=== PATIENT | female | born 1995 | race Caucasian/White ===

== ENCOUNTER 2018-10-21 09:53 | Emergency (ER) | payer OTHER, SELFPAY ==
[2018-10-21 10:04] VITALS: BP 111/76; PULSE 88; RESP 16; TEMP 36.7; O2SAT 98; BMI 25.6
--- NOTE | 2018-10-21 11:27 | PC.NURSE ---
Hx of tonsillar abscesses. Not able to eat or drink since last night. Symptoms have been only in tonsils, sinuses, and ears.
--- NOTE | 2018-10-21 12:07 | ED.URI ---
HPI - URI/Sore Throat <Kianna Peter PA-C - Last Filed: 10/21/18 18:43> General Chief Complaint: Upper Respiratory Symptoms Stated Complaint: sore throat for a week Time Seen by Provider: 10/21/18 10:26 Source: patient Mode of arrival: ambulatory Limitations: no limitations History of Present Illness HPI Narrative: This 23-year-old female comes to ED requesting test for strep throat. She states she has had stuffy nose, sinus congestion, achy years for about a week along with some cough producing thick sputum. She states that she has a history of tonsillar abscesses in the past and her sore throat felt worse this morning, so thought she better have this checked as she was concerned about exposing her daughter and other young relatives. She states her sister developed sore throat today as well and they and their kids have been in contact. She denies any fever at home. She states that she has not had any dyspnea or wheeze but does have a history of mild asthma in the past. She does not have an inhaler here. She denies any recent foreign travel, denies any fever at home or any other new complaints aside from ongoing dryness and flaking in her ears. She denies any possibility of , States Mirena implant is in place and her is deployed. She is not breast-feeding Related Data Previous Rx's Medication Instructions Recorded albuterol sulfate 2 inhalation INHALATION Q4-6H PRN 10/21/18 #8.5 gram lidocaine HCl [Lidocaine Viscous] 15 ml PO Q4-6H PRN #150 ml 10/21/18 Allergies Allergy/AdvReac Type Severity Reaction Status Date / Time amoxicillin Allergy Verified 10/21/18 10:04 aspirin Allergy Verified 10/21/18 10:04 diphenhydramine Allergy Verified 10/21/18 10:04 [From Benadryl] Penicillins Allergy Verified 10/21/18 10:04 Review of Systems <Kianna Peter PA-C - Last Filed: 10/21/18 18:43> Review of Systems ROS Unobtainable: All systems reviewed & are unremarkable except as noted in HPI and below PFSH <DUC Cox Last Filed: 10/21/18 18:43> Medical History Mild asthma (Chronic) No pertinent family history (Chronic) Surgical History No pertinent past surgical history (Chronic) Social History Smoking Status: Current some day smoker Social History Smoking Status: Current some day smoker Exam <DUC Cox Last Filed: 10/21/18 18:43> Narrative Exam Narrative: GENERAL APPEARANCE: Patient sitting comfortably, in no distress. HEAD: Mild generalized sinus TTP. EYES: PERRL, EOMI. EARS: There is mild dryness and slight flaking in the ear canals, TMS intact with dull light reflexes bilaterally ORAL CAVITY: Normal oropharynx. THROAT: Erythematous with mild tonsillar enlargement, no exudate NECK/THYROID: Neck supple, full range of motion, shotty anterior cervical lymphadenopathy. LUNGS: Clear to auscultation bilaterally, no cough on exam. HEART: RRR without murmur, nl S1, S2, no S3 or S4. Initial Vital Signs Initial Vital Signs: Vital Signs Temperature 98.1 F 10/21/18 10:04 Pulse Rate 88 10/21/18 10:04 Respiratory Rate 16 10/21/18 10:04 Blood Pressure 111/76 10/21/18 10:04 Pulse Oximetry 98 10/21/18 10:04 <DO Victoria Dubon Last Filed: 10/21/18 19:43> Initial Vital Signs Initial Vital Signs: Vital Signs Temperature 98.1 F 10/21/18 10:04 Pulse Rate 88 10/21/18 10:04 Respiratory Rate 16 10/21/18 10:04 Blood Pressure 111/76 10/21/18 10:04 Pulse Oximetry 98 10/21/18 10:04 Course <DUC Cox Last Filed: 10/21/18 18:43> Vital Signs - 8 hr 10/21/18 12:25 Pulse Rate 77 Respiratory Rate 12 Blood Pressure [Left Arm] 107/70 Pulse Oximetry 98 <DO Victoria Dubon Last Filed: 10/21/18 19:43> Vital Signs - 8 hr 10/21/18 12:25 Pulse Rate 77 Respiratory Rate 12 Blood Pressure [Left Arm] 107/70 Pulse Oximetry 98 MDM - URI/Sore Throat <DUC Cox Last Filed: 10/21/18 18:43> Lab Data Attestation: I reviewed the patient's lab results. Point of Care Testing Rapid Strep A Negative <Gene Carrillo DO - Last Filed: 10/21/18 19:43> Lab Data Point of Care Testing Rapid Strep A Negative Discharge Plan Departure Patient Disposition: Home Clinical Impression: Sinusitis Qualifiers: Sinusitis location: pansinusitis Chronicity: subacute Qualified Code(s): J01.40 - Acute pansinusitis, unspecified Pharyngitis Qualifiers: Pharyngitis/tonsillitis etiology: unspecified etiology Qualified Code(s): J02.9 - Acute pharyngitis, unspecified Discharge Date/Time: 10/21/18 12:31 Interventions: ED Discharge Assessment Last Done: 10/21/18 12:30 Instructions: DI for Sinusitis Activity Restrictions/Additional Instructions: I think your current symptoms are related to a sinus infection or head cold. The vast majority of the time, the symptoms are caused by viruses and usually get better on their own. I think that the drainage from your sinuses is causing your cough and this virus is probably causing your sore throat as well. Your test for strep throat was negative today. You should return as we talked about if you have any acutely worsening symptoms, or see your PCP right away. You should also see your PCP if you are not feeling better in the next week. I have sent in a prescription for viscous lidocaine for you to help numb your throat so you can eat and swallow more easily, and have [facility] [place] You may wish to try an antihistamine such as Zyrtec (cetirizine) 10 mg [id number], along with pseudoephedrine to help with your sinus drainage and congestion. An [id number] expectorant such as Mucinex may also help with your chest congestion. Prescriptions: New lidocaine HCl [Lidocaine Viscous] 2 % solution 15 ml PO Q4-6H PRN (Reason: ST) Qty: 150 RF: 0 albuterol sulfate 90 mcg/actuation HFA aerosol inhaler 2 inhalation INHALATION Q4-6H PRN (Reason: cough/asthma) Qty: 8.5 RF: 0 Referrals: Roz Willis MD [Primary Care Provider] - <Gene Carrillo DO - Last Filed: 10/21/18 19:43> Cosign ED Attending Cosignature Attestation: I was immediately available in the department for consultation. Documentation has been reviewed. I agree with assessment and plan.
[2018-10-21 12:25] VITALS: BP 107/70; PULSE 77; RESP 12; O2SAT 98
== END 2018-10-21 12:31 | disposition home or self-care (01) ==
PROVIDERS: Emergency Provider Internal Medicine; PCP Family Medicine
DX: J01.40 Acute pansinusitis, unspecified (principal); J02.9 Acute pharyngitis, unspecified
CPT/HCPCS: 87880; 99282

== ENCOUNTER 2018-10-23 14:25 | Emergency (ER) | payer OTHER, SELFPAY ==
[2018-10-23 14:35] VITALS: BP 114/79; PULSE 96; RESP 15; TEMP 36.9; O2SAT 99; BMI 25.6
[2018-10-23 15:00] LABS: Add Manual Diff / Slide Review NO; Basophils Absolute Auto 100 /uL (0-100); Basophils Percent Auto 0.6 % (0-2); Eosinophils Absolute Auto 300 /uL (0-450); Eosinophils Percent Auto 3.6 % (2-4); Hematocrit 46.6 % (36-46); Hemoglobin 15.6 g/dL (12.0-16.0); Lymphocytes Absolute Auto 1200 /uL (1100-4500); Lymphocytes Percent Auto 13.3 % (25-40); Mean Corpuscular HGB Conc 33.5 % (30-36); Mean Corpuscular Hemoglobin 29.2 PG (26-34); Mean Corpuscular Volume 87.1 fL (80-100); Monocytes Absolute Auto 700 /uL (0-900); Monocytes Percent Auto 7.1 % (3-14); Neutrophils Absolute Auto 7000 /uL (1500-7000); Neutrophils Percent Auto 75.4 % (50-75); Platelet Count 241 X10^3/uL (150-400); Red Blood Cell Count 5.35 X10^6/uL (4.0-5.2); Red Cell Distribution Width 13.8 % (11.6-14.8); White Blood Cell Count 9.3 X10^3/uL (4.5-11.0)
[2018-10-23 15:15] LABS: PTT Partial Thromboplastin Tim 32 SECONDS (26.4-36.2)
[2018-10-23 15:31] LABS: Alanine Aminotransferase 40 IU/L (9-52); Albumin 4.8 g/dL (3.5-5.0); Albumin Globulin Ratio 1.5 (1.0-2.8); Alkaline Phosphatase 56 U/L (38-126); Aspartate Aminotransferase 23 IU/L (14-36); BUN Creatinine Ratio 15.7 (6-22); Bilirubin Total 0.9 mg/dL (0.2-1.3); Blood Urea Nitrogen 11 mg/dL (7-17); Calcium 9.3 mg/dL (8.4-10.2); Carbon Dioxide 27 mmol/L (22-32); Chloride 102 mmol/L (98-107); Estimated Glomerular Filt Rate > 60.0 mL/min (>60); Globulin 3.2 g/dL (1.7-4.1); Glucose 85 mg/dL (70-100); HEMOLYSIS < 15 (0-50); Lipase 153 U/L (23-300); Potassium 4.2 mmol/L (3.4-5.1); Sodium 140 mmol/L (137-145)
--- NOTE | 2018-10-23 15:31 | ED.ABDPAIN ---
HPI - Abdominal Pain <RAFIA Gonzalez - Last Filed: 10/23/18 22:38> General Chief Complaint: Abdominal Pain Stated Complaint: stomach pain Time Seen by Provider: 10/23/18 14:44 Source: patient Mode of arrival: ambulatory Limitations: no limitations History of Present Illness HPI narrative: 23-year-old healthy female that is a nonsmoker here for complaint of a pain into her abdomen mostly in the right upper quadrant that started earlier today. She still has had some nausea. No vomiting.She does state that she has had some dark stools since this morning. She does report that she has been taking a lot of ibuprofen lately for muscle skeletal aches. She denies any trauma to the abdomen. No fevers no chills. No urinary symptoms. Last bowel movement was earlier today and she reports was dark. She denies any vomiting. She is tolerating p.o. intake. She denies any flank pain. She denies a history of having any ulcers MD complaint: abdominal pain Related Data Previous Rx's Medication Instructions Recorded albuterol sulfate 2 inhalation INHALATION Q4-6H PRN 10/21/18 #8.5 gram lidocaine HCl [Lidocaine Viscous] 15 ml PO Q4-6H PRN #150 ml 10/21/18 esomeprazole magnesium 40 mg PO DAILY #14 cap 10/23/18 Allergies Allergy/AdvReac Type Severity Reaction Status Date / Time amoxicillin Allergy Verified 10/23/18 14:35 aspirin Allergy Verified 10/23/18 14:35 diphenhydramine Allergy Verified 10/23/18 14:35 [From Benadryl] Penicillins Allergy Verified 10/23/18 14:35 Review of Systems <RAFIA Gonzalez - Last Filed: 10/23/18 22:38> Constitutional Denies chills, Denies fever(s), Denies lethargy and Denies weakness Eyes Denies change in vision, Denies eye discharge, Denies irritation and Denies loss of vision ENT Ears, Nose, Mouth, and Throat: Denies change in voice, Denies neck pain and Denies sore throat Cardiovascular Denies chest pain, Denies irregular heart rhythm, Denies lightheadedness, Denies palpitations, Denies dyspnea, Denies dyspnea on exertion and Denies orthopnea Respiratory Denies cough, Denies dyspnea, Denies dyspnea on exertion and Denies wheezing Gastrointestinal Comments: Abdominal pain mostly right upper quadrant with dark stool Genitourinary Denies hematuria, Denies flank pain, Denies urinary incontinence and Denies urinary urgency Musculoskeletal Denies neck pain Integumentary/Breasts Denies pruritus, Denies erythema, Denies rash and Denies wounds Neurologic Denies confusion, Denies loss of vision and Denies weakness Psychiatric Denies anxiety, Denies confusion, Denies depression, Denies homicidal ideation and Denies suicidal ideation Endocrine Denies palpitations Hematologic/Lymphatic Denies easy bruising Allergic/Immunologic Denies wheezing PFSH <RAFIA Gonzalez - Last Filed: 10/23/18 22:38> Medical History Mild asthma (Chronic) No pertinent family history (Chronic) Surgical History No pertinent past surgical history (Chronic) Social History Smoking Status: Current some day smoker Social History Smoking Status: Current some day smoker Exam <RAFIA Gonzalez - Last Filed: 10/23/18 22:38> Initial Vital Signs Initial Vital Signs: Vital Signs Temperature 98.4 F 10/23/18 14:35 Pulse Rate 96 H 10/23/18 14:35 Respiratory Rate 15 10/23/18 14:35 Blood Pressure 114/79 10/23/18 14:35 Pulse Oximetry 99 10/23/18 14:35 Const General: cooperative and well developed Nutritional Appearance: well nourished Orientation: alert, awake, oriented x3 and not confused [facility] Mouth: oral mucosae normal and moist mucous membranes Eyes Conjunctivae: conjunctivae normal Sclera: sclerae normal Pupils: PERRL EOM: EOM intact bilaterally Resp Effort & Inspection: normal respiratory effort, able to speak in complete sentences, no respiratory distress and no use of accessory muscles Auscultation: clear to auscultation bilaterally, no rales, no rhonchi and no wheezes Cardio Rate: regular rate Rhythm: regular rhythm Heart Sounds: no click, no gallops, no murmurs and no rubs Pulses: normal peripheral pulses GI Rectal Exam: visual inspection normal, normal sphincter tone, No fissure, heme positive stool and No hemorrhoids Other: Tenderness on palpation to all 4 quadrants. General: No CVA tenderness Skin General: no rashes or lesions noted, No jaundice and No petechiae Neuro General: alert, oriented x3, gait normal and no focal motor deficits Speech: speech normal <Ana Quick DO - Last Filed: 10/24/18 07:54> Initial Vital Signs Initial Vital Signs: Vital Signs Temperature 98.4 F 10/23/18 14:35 Pulse Rate 96 H 10/23/18 14:35 Respiratory Rate 15 10/23/18 14:35 Blood Pressure 114/79 10/23/18 14:35 Pulse Oximetry 99 10/23/18 14:35 Course <RAFIA Gonzalez - Last Filed: 10/23/18 22:38> Orders Ordered: Discontinued Medications Hydromorphone HCl (Dilaudid) 0.5 mg IV NOW ONE Stop: 10/23/18 15:39 Last Admin: 10/23/18 16:02 Dose: 0.5 mg Hydromorphone HCl (Dilaudid) 0.5 mg IV NOW ONE Stop: 10/23/18 17:48 Last Admin: 10/23/18 18:03 Dose: 0.5 mg Sodium Chloride (Normal Saline 0.9%) 1,000 mls @ 150 mls/hr IV CONT MARK Last Infusion: 10/23/18 18:43 Dose: 0 mls/hr Admin: 10/23/18 16:02 Dose: 150 mls/hr Ondansetron HCl (Zofran) 4 mg IV NOW ONE Stop: 10/23/18 15:39 Last Admin: 10/23/18 16:02 Dose: 4 mg Ondansetron HCl (Zofran) 4 mg IV NOW ONE Stop: 10/23/18 18:05 Last Admin: 10/23/18 18:07 Dose: 4 mg Vital Signs - 8 hr 10/23/18 17:46 10/23/18 18:49 10/23/18 19:39 Temperature 98.1 F Pulse Rate 84 85 104 H Respiratory Rate 14 27 H 14 Blood Pressure 108/62 Blood Pressure [Right Arm] 106/61 111/63 Pulse Oximetry 97 97 97 <Ana Quick DO - Last Filed: 10/24/18 07:54> Orders Ordered: Discontinued Medications Hydromorphone HCl (Dilaudid) 0.5 mg IV NOW ONE Stop: 10/23/18 15:39 Last Admin: 10/23/18 16:02 Dose: 0.5 mg Hydromorphone HCl (Dilaudid) 0.5 mg IV NOW ONE Stop: 10/23/18 17:48 Last Admin: 10/23/18 18:03 Dose: 0.5 mg Sodium Chloride (Normal Saline 0.9%) 1,000 mls @ 150 mls/hr IV CONT MARK Last Infusion: 10/23/18 18:43 Dose: 0 mls/hr Admin: 10/23/18 16:02 Dose: 150 mls/hr Ondansetron HCl (Zofran) 4 mg IV NOW ONE Stop: 10/23/18 15:39 Last Admin: 10/23/18 16:02 Dose: 4 mg Ondansetron HCl (Zofran) 4 mg IV NOW ONE Stop: 10/23/18 18:05 Last Admin: 10/23/18 18:07 Dose: 4 mg Vital Signs - 8 hr 10/23/18 17:46 10/23/18 18:49 10/23/18 19:39 Temperature 98.1 F Pulse Rate 84 85 104 H Respiratory Rate 14 27 H 14 Blood Pressure 108/62 Blood Pressure [Right Arm] 106/61 111/63 Pulse Oximetry 97 97 97 MDM - Abdominal Pain <RAFIA Gonzalez - Last Filed: 10/23/18 22:38> Lab Data Result diagrams: 10/23/18 14:52 10/23/18 14:52 Lab Results 10/23/18 10/23/18 10/23/18 Range/Units 14:52 14:52 14:52 WBC 9.3 (4.5-11.0) X10^3/uL RBC 5.35 H (4.0-5.2) X10^6/uL Hgb 15.6 (12.0-16.0) g/dL Hct 46.6 H (36-46) % MCV 87.1 (80-100) fL MCH 29.2 (26-34) PG MCHC 33.5 (30-36) % RDW 13.8 (11.6-14.8) % Plt Count 241 (150-400) X10^3/uL Neut % (Auto) 75.4 H (50-75) % Lymph % (Auto) 13.3 L (25-40) % [place] % (Auto) 7.1 (3-14) % Eos % (Auto) 3.6 (2-4) % Baso % (Auto) 0.6 (0-2) % Neut # (Auto) 7000 (7580-3835) /uL Lymph # (Auto) 1200 (6769-7897) /uL [place] # (Auto) 700 (0-900) /uL Eos # (Auto) 300 (0-450) /uL Baso # (Auto) 100 (0-100) /uL PT 12.0 (10.1-12.7) SECONDS INR 1.0 (0.9-1.3) APTT 32 (26.4-36.2) SECONDS Sodium 140 (137-145) mmol/L Potassium 4.2 (3.4-5.1) mmol/L Chloride 102 (98-107) mmol/L Carbon Dioxide 27 (22-32) mmol/L BUN 11 (7-17) mg/dL Creatinine 0.70 (0.52-1.04) mg/dL Estimated GFR > 60.0 (>60) mL/min BUN/Creatinine Ratio 15.7 (6-22) Glucose 85 (70-100) mg/dL Calcium 9.3 (8.4-10.2) mg/dL Total Bilirubin 0.9 (0.2-1.3) mg/dL AST 23 (14-36) IU/L ALT 40 (9-52) IU/L Alkaline Phosphatase 56 (38-126) U/L Total Protein 8.0 (6.3-8.2) g/dL Albumin 4.8 (3.5-5.0) g/dL Globulin 3.2 (1.7-4.1) g/dL Albumin/Globulin Ratio 1.5 (1.0-2.8) Lipase 153 (23-300) U/L Point of care testing: Point of Care Testing Test Results Negative Stool Occult Blood Positive Urine Dip Bedside Urine Glucose Negative Bedside Urine Bilirubin - Negative Bedside Urine Ketone - Negative Urine Specific [place] 1.025 Bedside Urine Occult Blood - Negative Bedside Urine pH 6.0 Bedside Urine Protein - Negative Bedside Urine Urobilinogen - Negative Bedside Urine Nitrite - Negative Bedside Urine Leukocytes - Negative Esterase Imaging Data CT scan - abdomen: Radiologist's impression: [address] [address] [address] Scan Report Signed Patient: Sarah AndrewMR#: [id number] : 1995Acct:[id number] Age/Sex: 23 / FDate of Service: 10/23/18 Loc: ED Accession Number: [id number] Procedure: CT abdomen pelvis w con Ordering Provider: Lauri Kerr PROCEDURE: CT ABDOMEN PELVIS W CON INDICATIONS: Abdominal pain to right upper quadrant and right lower quadr TECHNIQUE: After the administration of intravenous contrast, 5 mm thick sections acquired from the diaphragm to the symphysis. 5 mm coronal and sagittal reformats were acquired. For radiation dose reduction, the following was used: automated exposure control, adjustment of mA and/or kV according to patient size. COMPARISON: None. FINDINGS: Image quality: Excellent. ABDOMEN: Lung bases: Lung bases are clear. Heart size is normal. Solid organs: Liver is normal in size and enhancement. Focal fatty infiltration noted in the liver adjacent to the falciform ligament. Gallbladder is within normal limits. Biliary system is non dilated. Pancreas enhances normally. Spleen is normal in size and enhancement. No adrenal nodules. Kidneys demonstrate normal size and enhancement, without hydronephrosis. Peritoneum and bowel: Bowel loops demonstrate normal wall thickness and caliber. No free fluid or air. The appendix is normal. Nodes and vessels: No retroperitoneal or mesenteric adenopathy by size criteria. Aorta and inferior vena cava are normal in size. Miscellaneous: No ventral hernias. PELVIS: Genitourinary: Bladder wall thickness is normal. Intrauterine device is properly positioned within the uterus. Miscellaneous: No inguinal hernias or adenopathy. Bones: No suspicious bony lesions. No vertebral body compression fractures. IMPRESSION: 1. The appendix is normal. 2. No CT evidence of cholecystitis. If there is clinical concern for cholecystitis, abdominal ultrasound should be performed for further evaluation. 3. No dilated loops of bowel. 4. No free fluid or air. Dictated by: Yas Lewis MD, PhD on 10/23/2018 at 16:16 Approved by: Yas Lewis MD, PhD on 10/23/2018 at 16:21 US - abdomen: Radiologist's impression: [address] [address] Ultrasound Report Signed Patient: Sarah Andrew#: [id number] : 1995Acct:[id number] Age/Sex: 23 / FDate of Service: 10/23/18 Loc: ED Accession Number: [id number] Procedure: US abdomen complete Ordering Provider: Lauri Kerr PROCEDURE: US ABDOMEN COMPLETE INDICATIONS: PAIN TO RIGHT UPPER QUADRANT TECHNIQUE: Real-time scanning was performed of the abdominal and retroperitoneal organs, with image documentation. COMPARISON: None. FINDINGS: Liver: Liver is normal in size and homogeneous in echotexture. Gallbladder: Gallbladder is unremarkable without sonographic evidence for acute inflammation. Biliary ducts: Intrahepatic bile ducts are non-dilated. Extrahepatic bile duct caliber measures 4 mm. Normal is 6-7 mm or less in diameter, or 10 mm or less post-cholecystectomy. Pancreas: Visualized portions of the pancreas are sonographically normal. Spleen: Spleen is normal in size and homogeneous in echotexture. Kidneys: Kidneys are normal in size and echotexture. Right kidney measures 11.5 cm long; left kidney measures 12.6 cm long. No hydronephrosis or nephrolithiasis. No solid masses. Aorta: Visualized aorta is normal in caliber at less than 3 cm. Iliacs: Proximal common iliac arteries are normal in caliber at less than 2.5 cm. IVC: Intrahepatic inferior vena cava is patent. Miscellaneous: No free abdominal fluid. IMPRESSION: Abdomen without acute sonographic abnormalities. Dictated by: Mekhi Teixeira M.D. on 10/23/2018 at 18:10 Approved by: Mekhi Teixeira M.D. on 10/23/2018 at 18:11 [facility] Narrative Medical decision making narrative: CBC was obtained and was unremarkable. Chem panel was obtained and was unremarkable. coags were normal. CT scan of the abdomen was obtained was unremarkable. Ultrasound was obtained and was negative for acute cholecystitis or other acute problems. Guaiac was obtained and was positive. Will have her follow up with primary care provider for further evaluation such as endoscopy she is placed on. Esomeprazole for the next 2 weeks to help with symptoms. She is instructed not to use ibuprofen as she has been using ibuprofen frequently she states. For any worsening symptoms return to the emergency room. <Ana Quick DO - Last Filed: 10/24/18 07:54> Lab Data Lab Results 10/23/18 10/23/18 10/23/18 Range/Units 14:52 14:52 14:52 WBC 9.3 (4.5-11.0) X10^3/uL RBC 5.35 H (4.0-5.2) X10^6/uL Hgb 15.6 (12.0-16.0) g/dL Hct 46.6 H (36-46) % MCV 87.1 (80-100) fL MCH 29.2 (26-34) PG MCHC 33.5 (30-36) % RDW 13.8 (11.6-14.8) % Plt Count 241 (150-400) X10^3/uL Neut % (Auto) 75.4 H (50-75) % Lymph % (Auto) 13.3 L (25-40) % [place] % (Auto) 7.1 (3-14) % Eos % (Auto) 3.6 (2-4) % Baso % (Auto) 0.6 (0-2) % Neut # (Auto) 7000 (4885-5559) /uL Lymph # (Auto) 1200 (0475-4377) /uL [place] # (Auto) 700 (0-900) /uL Eos # (Auto) 300 (0-450) /uL Baso # (Auto) 100 (0-100) /uL PT 12.0 (10.1-12.7) SECONDS INR 1.0 (0.9-1.3) APTT 32 (26.4-36.2) SECONDS Sodium 140 (137-145) mmol/L Potassium 4.2 (3.4-5.1) mmol/L Chloride 102 (98-107) mmol/L Carbon Dioxide 27 (22-32) mmol/L BUN 11 (7-17) mg/dL Creatinine 0.70 (0.52-1.04) mg/dL Estimated GFR > 60.0 (>60) mL/min BUN/Creatinine Ratio 15.7 (6-22) Glucose 85 (70-100) mg/dL Calcium 9.3 (8.4-10.2) mg/dL Total Bilirubin 0.9 (0.2-1.3) mg/dL AST 23 (14-36) IU/L ALT 40 (9-52) IU/L Alkaline Phosphatase 56 (38-126) U/L Total Protein 8.0 (6.3-8.2) g/dL Albumin 4.8 (3.5-5.0) g/dL Globulin 3.2 (1.7-4.1) g/dL Albumin/Globulin Ratio 1.5 (1.0-2.8) Lipase 153 (23-300) U/L Point of care testing: Point of Care Testing Test Results Negative Stool Occult Blood Positive Urine Dip Bedside Urine Glucose Negative Bedside Urine Bilirubin - Negative Bedside Urine Ketone - Negative Urine Specific [place] 1.025 Bedside Urine Occult Blood - Negative Bedside Urine pH 6.0 Bedside Urine Protein - Negative Bedside Urine Urobilinogen - Negative Bedside Urine Nitrite - Negative Bedside Urine Leukocytes - Negative Esterase Discharge Plan Departure Patient Disposition: Home Clinical Impression: Abdominal pain Qualifiers: Abdominal location: generalized Qualified Code(s): R10.84 - Generalized abdominal pain Discharge Date/Time: 10/23/18 19:38 Interventions: ED Discharge Assessment Last Done: 10/23/18 19:39 Activity Restrictions/Additional Instructions: Imaging today was unremarkable. No acute findings are seen. Laboratory results were unremarkable. Stool presents as having blood in the stool. Recommend following up with primary care provider for further evaluation and discussion of referral for endoscopy. Use Tylenol instead of ibuprofen for any discomfort. Urine prescribed esomeprazole in an acid to help protect the stomach lining. For any worsening symptoms return to the emergency room. Urinalysis was negative for urinary tract infection and also . Prescriptions: New esomeprazole magnesium 40 mg capsule,delayed release(DR/EC) 40 mg PO DAILY Qty: 14 RF: 0 No Action lidocaine HCl [Lidocaine Viscous] 2 % solution 15 ml PO Q4-6H PRN (Reason: ST) Qty: 150 RF: 0 albuterol sulfate 90 mcg/actuation HFA aerosol inhaler 2 inhalation INHALATION Q4-6H PRN (Reason: cough/asthma) Qty: 8.5 RF: 0 Referrals: Roz Willis MD [Primary Care Provider] - <Ana Quick DO - Last Filed: 10/24/18 07:54> Cosign ED Attending Eveliaature Attestation: I was immediately available in the department for consultation. Documentation has been reviewed. I agree with assessment and plan.
--- NOTE | 2018-10-23 15:39 | DI.CT.S_ITS ---
PROCEDURE: CT ABDOMEN PELVIS W CON INDICATIONS: Abdominal pain to right upper quadrant and right lower quadr TECHNIQUE: After the administration of intravenous contrast, 5 mm thick sections acquired from the diaphragm to the symphysis. 5 mm coronal and sagittal reformats were acquired. For radiation dose reduction, the following was used: automated exposure control, adjustment of mA and/or kV according to patient size. COMPARISON: None. FINDINGS: Image quality: Excellent. ABDOMEN: Lung bases: Lung bases are clear. Heart size is normal. Solid organs: Liver is normal in size and enhancement. Focal fatty infiltration noted in the liver adjacent to the falciform ligament. Gallbladder is within normal limits. Biliary system is non dilated. Pancreas enhances normally. Spleen is normal in size and enhancement. No adrenal nodules. Kidneys demonstrate normal size and enhancement, without hydronephrosis. Peritoneum and bowel: Bowel loops demonstrate normal wall thickness and caliber. No free fluid or air. The appendix is normal. Nodes and vessels: No retroperitoneal or mesenteric adenopathy by size criteria. Aorta and inferior vena cava are normal in size. Miscellaneous: No ventral hernias. PELVIS: Genitourinary: Bladder wall thickness is normal. Intrauterine device is properly positioned within the uterus. Miscellaneous: No inguinal hernias or adenopathy. Bones: No suspicious bony lesions. No vertebral body compression fractures. IMPRESSION: 1. The appendix is normal. 2. No CT evidence of cholecystitis. If there is clinical concern for cholecystitis, abdominal ultrasound should be performed for further evaluation. 3. No dilated loops of bowel. 4. No free fluid or air. Dictated by: Yas Lewis MD, PhD on 10/23/2018 at 16:16 Approved by: Yas Lewis MD, PhD on 10/23/2018 at 16:21
[2018-10-23] MEDS: SODIUM CHLORIDE 0.9% 1,000 ML 150 ML IV (16:02)
[2018-10-23] MEDS: ONDANSETRON 4 MG/2 ML INJ IV ×2 (16:02→18:07)
[2018-10-23] MEDS: HYDROMORPHONE 1 MG INJ 0.5 MG IV ×2 (16:02→18:03)
--- NOTE | 2018-10-23 16:42 | DI.US.S_ITS ---
PROCEDURE: US ABDOMEN COMPLETE INDICATIONS: PAIN TO RIGHT UPPER QUADRANT TECHNIQUE: Real-time scanning was performed of the abdominal and retroperitoneal organs, with image documentation. COMPARISON: None. FINDINGS: Liver: Liver is normal in size and homogeneous in echotexture. Gallbladder: Gallbladder is unremarkable without sonographic evidence for acute inflammation. Biliary ducts: Intrahepatic bile ducts are non-dilated. Extrahepatic bile duct caliber measures 4 mm. Normal is 6-7 mm or less in diameter, or 10 mm or less post-cholecystectomy. Pancreas: Visualized portions of the pancreas are sonographically normal. Spleen: Spleen is normal in size and homogeneous in echotexture. Kidneys: Kidneys are normal in size and echotexture. Right kidney measures 11.5 cm long; left kidney measures 12.6 cm long. No hydronephrosis or nephrolithiasis. No solid masses. Aorta: Visualized aorta is normal in caliber at less than 3 cm. Iliacs: Proximal common iliac arteries are normal in caliber at less than 2.5 cm. IVC: Intrahepatic inferior vena cava is patent. Miscellaneous: No free abdominal fluid. IMPRESSION: Abdomen without acute sonographic abnormalities. Dictated by: Mekhi Teixeira M.D. on 10/23/2018 at 18:10 Approved by: Mekhi Teixeira M.D. on 10/23/2018 at 18:11
--- NOTE | 2018-10-23 16:45 | ED_ITS ---
HPI - Abdominal Pain <RAFIA Gonzalez - Last Filed: 10/23/18 22:38> General Chief Complaint: Abdominal Pain Stated Complaint: stomach pain Time Seen by Provider: 10/23/18 14:44 Source: patient Mode of arrival: ambulatory Limitations: no limitations History of Present Illness HPI narrative: 23-year-old healthy female that is a nonsmoker here for complaint of a pain into her abdomen mostly in the right upper quadrant that started earlier today. She still has had some nausea. No vomiting.She does state that she has had some dark stools since this morning. She does report that she has been taking a lot of ibuprofen lately for muscle skeletal aches. She denies any trauma to the abdomen. No fevers no chills. No urinary symptoms. Last bowel movement was earlier today and she reports was dark. She denies any vomiting. She is tolerating p.o. intake. She denies any flank pain. She denies a history of having any ulcers MD complaint: abdominal pain Related Data Previous Rx's Medication Instructions Recorded albuterol sulfate 2 inhalation INHALATION Q4-6H PRN 10/21/18 #8.5 gram lidocaine HCl [Lidocaine Viscous] 15 ml PO Q4-6H PRN #150 ml 10/21/18 esomeprazole magnesium 40 mg PO DAILY #14 cap 10/23/18 Allergies Allergy/AdvReac Type Severity Reaction Status Date / Time amoxicillin Allergy Verified 10/23/18 14:35 aspirin Allergy Verified 10/23/18 14:35 diphenhydramine Allergy Verified 10/23/18 14:35 [From Benadryl] Penicillins Allergy Verified 10/23/18 14:35 Review of Systems <RAFIA Gonzalez - Last Filed: 10/23/18 22:38> Constitutional Denies chills, Denies fever(s), Denies lethargy and Denies weakness Eyes Denies change in vision, Denies eye discharge, Denies irritation and Denies loss of vision ENT Ears, Nose, Mouth, and Throat: Denies change in voice, Denies neck pain and Denies sore throat Cardiovascular Denies chest pain, Denies irregular heart rhythm, Denies lightheadedness, Denies palpitations, Denies dyspnea, Denies dyspnea on exertion and Denies orthopnea Respiratory Denies cough, Denies dyspnea, Denies dyspnea on exertion and Denies wheezing Gastrointestinal Comments: Abdominal pain mostly right upper quadrant with dark stool Genitourinary Denies hematuria, Denies flank pain, Denies urinary incontinence and Denies urinary urgency Musculoskeletal Denies neck pain Integumentary/Breasts Denies pruritus, Denies erythema, Denies rash and Denies wounds Neurologic Denies confusion, Denies loss of vision and Denies weakness Psychiatric Denies anxiety, Denies confusion, Denies depression, Denies homicidal ideation and Denies suicidal ideation Endocrine Denies palpitations Hematologic/Lymphatic Denies easy bruising Allergic/Immunologic Denies wheezing PFSH <RAFIA Gonzalez - Last Filed: 10/23/18 22:38> Medical History Mild asthma (Chronic) No pertinent family history (Chronic) Surgical History No pertinent past surgical history (Chronic) Social History Smoking Status: Current some day smoker Social History Smoking Status: Current some day smoker Exam <RAFIA Gonzalez - Last Filed: 10/23/18 22:38> Initial Vital Signs Initial Vital Signs: Vital Signs Temperature 98.4 F 10/23/18 14:35 Pulse Rate 96 H 10/23/18 14:35 Respiratory Rate 15 10/23/18 14:35 Blood Pressure 114/79 10/23/18 14:35 Pulse Oximetry 99 10/23/18 14:35 Const General: cooperative and well developed Nutritional Appearance: well nourished Orientation: alert, awake, oriented x3 and not confused [facility] Mouth: oral mucosae normal and moist mucous membranes Eyes Conjunctivae: conjunctivae normal Sclera: sclerae normal Pupils: PERRL EOM: EOM intact bilaterally Resp Effort & Inspection: normal respiratory effort, able to speak in complete sentences, no respiratory distress and no use of accessory muscles Auscultation: clear to auscultation bilaterally, no rales, no rhonchi and no wheezes Cardio Rate: regular rate Rhythm: regular rhythm Heart Sounds: no click, no gallops, no murmurs and no rubs Pulses: normal peripheral pulses GI Rectal Exam: visual inspection normal, normal sphincter tone, No fissure, heme positive stool and No hemorrhoids Other: Tenderness on palpation to all 4 quadrants. General: No CVA tenderness Skin General: no rashes or lesions noted, No jaundice and No petechiae Neuro General: alert, oriented x3, gait normal and no focal motor deficits Speech: speech normal <Ana Quick DO - Last Filed: 10/24/18 07:54> Initial Vital Signs Initial Vital Signs: Vital Signs Temperature 98.4 F 10/23/18 14:35 Pulse Rate 96 H 10/23/18 14:35 Respiratory Rate 15 10/23/18 14:35 Blood Pressure 114/79 10/23/18 14:35 Pulse Oximetry 99 10/23/18 14:35 Course <RAFIA Gonzalez - Last Filed: 10/23/18 22:38> Orders Ordered: Discontinued Medications Hydromorphone HCl (Dilaudid) 0.5 mg IV NOW ONE Stop: 10/23/18 15:39 Last Admin: 10/23/18 16:02 Dose: 0.5 mg Hydromorphone HCl (Dilaudid) 0.5 mg IV NOW ONE Stop: 10/23/18 17:48 Last Admin: 10/23/18 18:03 Dose: 0.5 mg Sodium Chloride (Normal Saline 0.9%) 1,000 mls @ 150 mls/hr IV CONT MARK Last Infusion: 10/23/18 18:43 Dose: 0 mls/hr Admin: 10/23/18 16:02 Dose: 150 mls/hr Ondansetron HCl (Zofran) 4 mg IV NOW ONE Stop: 10/23/18 15:39 Last Admin: 10/23/18 16:02 Dose: 4 mg Ondansetron HCl (Zofran) 4 mg IV NOW ONE Stop: 10/23/18 18:05 Last Admin: 10/23/18 18:07 Dose: 4 mg Vital Signs - 8 hr 10/23/18 17:46 10/23/18 18:49 10/23/18 19:39 Temperature 98.1 F Pulse Rate 84 85 104 H Respiratory Rate 14 27 H 14 Blood Pressure 108/62 Blood Pressure [Right Arm] 106/61 111/63 Pulse Oximetry 97 97 97 <Ana Quick DO - Last Filed: 10/24/18 07:54> Orders Ordered: Discontinued Medications Hydromorphone HCl (Dilaudid) 0.5 mg IV NOW ONE Stop: 10/23/18 15:39 Last Admin: 10/23/18 16:02 Dose: 0.5 mg Hydromorphone HCl (Dilaudid) 0.5 mg IV NOW ONE Stop: 10/23/18 17:48 Last Admin: 10/23/18 18:03 Dose: 0.5 mg Sodium Chloride (Normal Saline 0.9%) 1,000 mls @ 150 mls/hr IV CONT MARK Last Infusion: 10/23/18 18:43 Dose: 0 mls/hr Admin: 10/23/18 16:02 Dose: 150 mls/hr Ondansetron HCl (Zofran) 4 mg IV NOW ONE Stop: 10/23/18 15:39 Last Admin: 10/23/18 16:02 Dose: 4 mg Ondansetron HCl (Zofran) 4 mg IV NOW ONE Stop: 10/23/18 18:05 Last Admin: 10/23/18 18:07 Dose: 4 mg Vital Signs - 8 hr 10/23/18 17:46 10/23/18 18:49 10/23/18 19:39 Temperature 98.1 F Pulse Rate 84 85 104 H Respiratory Rate 14 27 H 14 Blood Pressure 108/62 Blood Pressure [Right Arm] 106/61 111/63 Pulse Oximetry 97 97 97 MDM - Abdominal Pain <RAFIA Gonzalez - Last Filed: 10/23/18 22:38> Lab Data Result diagrams: 10/23/18 14:52 10/23/18 14:52 Lab Results 10/23/18 10/23/18 10/23/18 Range/Units 14:52 14:52 14:52 WBC 9.3 (4.5-11.0) X10^3/uL RBC 5.35 H (4.0-5.2) X10^6/uL Hgb 15.6 (12.0-16.0) g/dL Hct 46.6 H (36-46) % MCV 87.1 (80-100) fL MCH 29.2 (26-34) PG MCHC 33.5 (30-36) % RDW 13.8 (11.6-14.8) % Plt Count 241 (150-400) X10^3/uL Neut % (Auto) 75.4 H (50-75) % Lymph % (Auto) 13.3 L (25-40) % [place] % (Auto) 7.1 (3-14) % Eos % (Auto) 3.6 (2-4) % Baso % (Auto) 0.6 (0-2) % Neut # (Auto) 7000 (9947-7805) /uL Lymph # (Auto) 1200 (4031-4609) /uL [place] # (Auto) 700 (0-900) /uL Eos # (Auto) 300 (0-450) /uL Baso # (Auto) 100 (0-100) /uL PT 12.0 (10.1-12.7) SECONDS INR 1.0 (0.9-1.3) APTT 32 (26.4-36.2) SECONDS Sodium 140 (137-145) mmol/L Potassium 4.2 (3.4-5.1) mmol/L Chloride 102 (98-107) mmol/L Carbon Dioxide 27 (22-32) mmol/L BUN 11 (7-17) mg/dL Creatinine 0.70 (0.52-1.04) mg/dL Estimated GFR > 60.0 (>60) mL/min BUN/Creatinine Ratio 15.7 (6-22) Glucose 85 (70-100) mg/dL Calcium 9.3 (8.4-10.2) mg/dL Total Bilirubin 0.9 (0.2-1.3) mg/dL AST 23 (14-36) IU/L ALT 40 (9-52) IU/L Alkaline Phosphatase 56 (38-126) U/L Total Protein 8.0 (6.3-8.2) g/dL Albumin 4.8 (3.5-5.0) g/dL Globulin 3.2 (1.7-4.1) g/dL Albumin/Globulin Ratio 1.5 (1.0-2.8) Lipase 153 (23-300) U/L Point of care testing: Point of Care Testing Test Results Negative Stool Occult Blood Positive Urine Dip Bedside Urine Glucose Negative Bedside Urine Bilirubin - Negative Bedside Urine Ketone - Negative Urine Specific [place] 1.025 Bedside Urine Occult Blood - Negative Bedside Urine pH 6.0 Bedside Urine Protein - Negative Bedside Urine Urobilinogen - Negative Bedside Urine Nitrite - Negative Bedside Urine Leukocytes - Negative Esterase Imaging Data CT scan - abdomen: Radiologist's impression: [address] [address] [address] Scan Report Signed Patient: Sarah AndrewMR#: [id number] : 1995Acct:[id number] Age/Sex: 23 / FDate of Service: 10/23/18 Loc: ED Accession Number: [id number] Procedure: CT abdomen pelvis w con Ordering Provider: Lauri Kerr PROCEDURE: CT ABDOMEN PELVIS W CON INDICATIONS: Abdominal pain to right upper quadrant and right lower quadr TECHNIQUE: After the administration of intravenous contrast, 5 mm thick sections acquired from the diaphragm to the symphysis. 5 mm coronal and sagittal reformats were acquired. For radiation dose reduction, the following was used: automated exposure control, a djustment of mA and/or kV according to patient size. COMPARISON: None. FINDINGS: Image quality: Excellent. ABDOMEN: Lung bases: Lung bases are clear. Heart size is normal. Solid organs: Liver is normal in size and enhancement. Focal fatty infiltration noted in the liver adjacent to the falciform ligament. Gallbladder is within normal limits. Biliary system is non dilated. Pancreas enhances normally. Spleen is normal in size and enhancement. No adrenal nodules. Kidneys demonstrate normal size and enhancement, without hydronephrosis. Peritoneum and bowel: Bowel loops demonstrate normal wall thickness and caliber. No free fluid or air. The appendix is normal. Nodes and vessels: No retroperitoneal or mesenteric adenopathy by size criteria. Aorta and inferior vena cava are normal in size. Miscellaneous: No ventral hernias. PELVIS: Genitourinary: Bladder wall thickness is normal. Intrauterine device is properly positioned within the uterus. Miscellaneous: No inguinal hernias or adenopathy. Bones: No suspicious bony lesions. No vertebral body compression fractures. IMPRESSION: 1. The appendix is normal. 2. No CT evidence of cholecystitis. If there is clinical concern for cholecystitis, abdominal ultrasound should be performed for further evaluation. 3. No dilated loops of bowel. 4. No free fluid or air. Dictated by: Yas Lewis MD, PhD on 10/23/2018 at 16:16 Approved by: Yas Lewis MD, PhD on 10/23/2018 at 16:21 US - abdomen: Radiologist's impression: [address] [address] Ultrasound Report Signed Patient: Sarah Andrew#: [id number] : 1995Acct:[id number] Age/Sex: 23 FDate of Service: 10/23/18 Loc: ED Accession Number: [id number] Procedure: US abdomen complete Ordering Provider: Lauri Kerr PROCEDURE: US ABDOMEN COMPLETE INDICATIONS: PAIN TO RIGHT UPPER QUADRANT TECHNIQUE: Real-time scanning was performed of the abdominal and retroperitoneal organs, with image documentation. COMPARISON: None. FINDINGS: Liver: Liver is normal in size and homogeneous in echotexture. Gallbladder: Gallbladder is unremarkable without sonographic evidence for acute inflammation. Biliary ducts: Intrahepatic bile ducts are non-dilated. Extrahepatic bile duct caliber measures 4 mm. Normal is 6-7 mm or less in diameter, or 10 mm or less post-cholecystectomy. Pancreas: Visualized portions of the pancreas are sonographically normal. Spleen: Spleen is normal in size and homogeneous in echotexture. Kidneys: Kidneys are normal in size and echotexture. Right kidney measures 11.5 cm long; left kidney measures 12.6 cm long. No hydronephrosis or nephrolithiasis. No solid masses. Aorta: Visualized aorta is normal in caliber at less than 3 cm. Iliacs: Proximal common iliac arteries are normal in caliber at less than 2.5 cm. IVC: Intrahepatic inferior vena cava is patent. Miscellaneous: No free abdominal fluid. IMPRESSION: Abdomen without acute sonographic abnormalities. Dictated by: Mekhi Teixeira M.D. on 10/23/2018 at 18:10 Approved by: Mekhi Teixeira M.D. on 10/23/2018 at 18:11 [facility] Narrative Medical decision making narrative: CBC was obtained and was unremarkable. Chem panel was obtained and was unremarkable. coags were normal. CT scan of the abdomen was obtained was unremarkable. Ultrasound was obtained and was negative for acute cholecystitis or other acute problems. Guaiac was obtained and was positive. Will have her follow up with primary care provider for further evaluation such as endoscopy she is placed on. Esomeprazole for the next 2 we eks to help with symptoms. She is instructed not to use ibuprofen as she has been using ibuprofen frequently she states. For any worsening symptoms return to the emergency room. <Ana Quick DO - Last Filed: 10/24/18 07:54> Lab Data Lab Results 10/23/18 10/23/18 10/23/18 Range/Units 14:52 14:52 14:52 WBC 9.3 (4.5-11.0) X10^3/uL RBC 5.35 H (4.0-5.2) X10^6/uL Hgb 15.6 (12.0-16.0) g/dL Hct 46.6 H (36-46) % MCV 87.1 (80-100) fL MCH 29.2 (26-34) PG MCHC 33.5 (30-36) % RDW 13.8 (11.6-14.8) % Plt Count 241 (150-400) X10^3/uL Neut % (Auto) 75.4 H (50-75) % Lymph % (Auto) 13.3 L (25-40) % [place] % (Auto) 7.1 (3-14) % Eos % (Auto) 3.6 (2-4) % Baso % (Auto) 0.6 (0-2) % Neut # (Auto) 7000 (8045-3021) /uL Lymph # (Auto) 1200 (9627-2108) /uL [place] # (Auto) 700 (0-900) /uL Eos # (Auto) 300 (0-450) /uL Baso # (Auto) 100 (0-100) /uL PT 12.0 (10.1-12.7) SECONDS INR 1.0 (0.9-1.3) APTT 32 (26.4-36.2) SECONDS Sodium 140 (137-145) mmol/L Potassium 4.2 (3.4-5.1) mmol/L Chloride 102 (98-107) mmol/L Carbon Dioxide 27 (22-32) mmol/L BUN 11 (7-17) mg/dL Creatinine 0.70 (0.52-1.04) mg/dL Estimated GFR > 60.0 (>60) mL/min BUN/Creatinine Ratio 15.7 (6-22) Glucose 85 (70-100) mg/dL Calcium 9.3 (8.4-10.2) mg/dL Total Bilirubin 0.9 (0.2-1.3) mg/dL AST 23 (14-36) IU/L ALT 40 (9-52) IU/L Alkaline Phosphatase 56 (38-126) U/L Total Protein 8.0 (6.3-8.2) g/dL Albumin 4.8 (3.5-5.0) g/dL Globulin 3.2 (1.7-4.1) g/dL Albumin/Globulin Ratio 1.5 (1.0-2.8) Lipase 153 (23-300) U/L Point of care testing: Point of Care Testing Test Results Negative Stool Occult Blood Positive Urine Dip Bedside Urine Glucose Negative Bedside Urine Bilirubin - Negative Bedside Urine Ketone - Negative Urine Specific [place] 1.025 Bedside Urine Occult Blood - Negative Bedside Urine pH 6.0 Bedside Urine Protein - Negative Bedside Urine Urobilinogen - Negative Bedside Urine Nitrite - Negative Bedside Urine Leukocytes - Negative Esterase Discharge Plan Departure Patient Disposition: Home Clinical Impression: Abdominal pain Qualifiers: Abdominal location: generalized Qualified Code(s): R10.84 - Generalized abdominal pain Discharge Date/Time: 10/23/18 19:38 Interventions: ED Discharge Assessment Last Done: 10/23/18 19:39 Activity Restrictions/Additional Instructions: Imaging today was unremarkable. No acute findings are seen. Laboratory results were unremarkable. Stool presents as having blood in the stool. Recommend following up with primary care provider for further evaluation and discussion of referral for endoscopy. Use Tylenol instead of ibuprofen for any discomfort. Urine prescribed esomeprazole in an acid to help protect the stomach lining. For any worsening symptoms return to the emergency room. Urinalysis was negative for urinary tract infection and also . Prescriptions: New esomeprazole magnesium 40 mg capsule,delayed release(DR/EC) 40 mg PO DAILY Qty: 14 RF: 0 No Action lidocaine HCl [Lidocaine Viscous] 2 % solution 15 ml PO Q4-6H PRN (Reason: ST) Qty: 150 RF: 0 albuterol sulfate 90 mcg/actuation HFA aerosol inhaler 2 inhalation INHALATION Q4-6H PRN (Reason: cough/asthma) Qty: 8.5 RF: 0 Referrals: Roz Willis MD [Primary Care Provider] - <Ana Quick DO - Last Filed: 10/24/18 07:54> Cosign ED Attending Eveliaature Attestation: I was immediately available in the department for consultation. Documentation has been reviewed. I agree with assessment and plan.
[2018-10-23 17:46] VITALS: BP 106/61; PULSE 84; RESP 14; O2SAT 97
[2018-10-23 18:49] VITALS: BP 111/63; PULSE 85; RESP 27; O2SAT 97
[2018-10-23 19:39] VITALS: BP 108/62; PULSE 104; RESP 14; TEMP 36.7; O2SAT 97
== END 2018-10-23 19:38 | disposition home or self-care (01) ==
PROVIDERS: Emergency Medicine; Emergency Provider Nurse Practitioner Family; PCP Family Medicine
DX: R10.84 Generalized abdominal pain (principal)
CPT/HCPCS: 36415; 36591; 74177; 76700; 80053; 81003; 81025; 82272; 83690; 85025; 85610; 85730; 96361; 96374; 96375; 96376; 99283; 99285; J1170; J2405; Q9967

== ENCOUNTER 2020-04-13 03:05 | Emergency (ER) | payer OTHER, SELFPAY ==
--- NOTE | 2020-04-13 03:10 | ED_ITS ---
HPI - Headache General Chief Complaint: Headache Stated Complaint: states migraine Time Seen by Provider: 04/13/20 03:10 Source: patient Mode of arrival: Ambulatory Limitations: no limitations History of Present Illness HPI Narrative: 24F smoker with extensive history of daily migraines presents with headache that she was unable to get to before ramped up at home. She normally is able to take her home meds and keep it from worsening but this time she was unable. She denies any fever or chills nor any recent injury. She states her headache is squeezing, 8/10 in nature and worsened by lights, loud noises. She denies any other neurologic symptoms such as numbness, tingling or weakness. She denies any blurred vision or trouble with speech. MD Complaint: headache and migraine Onset (ago): hour(s) Onset description: gradual Location: diffuse Severity scale (1-10): 8 Quality: aching, steady and squeezing Relieving factors: dark room Exacerbating factors: light and noise Context: occurred at rest Associated symptoms: none Treatments prior to arrival: none Related Data Previous Rx's Medication Instructions Recorded albuterol sulfate 2 inhalation INHALATION Q4-6H PRN 10/21/18 #8.5 gram lidocaine HCl [Lidocaine Viscous] 15 ml PO Q4-6H PRN #150 ml 10/21/18 esomeprazole magnesium 40 mg PO DAILY #14 cap 10/23/18 Allergies Allergy/AdvReac Type Severity Reaction Status Date / Time amoxicillin Allergy Verified 10/23/18 14:35 aspirin Allergy Verified 10/23/18 14:35 diphenhydramine Allergy Verified 10/23/18 14:35 [From Benadryl] Penicillins Allergy Verified 10/23/18 14:35 sumatriptan [From Imitrex] Allergy Verified 04/13/20 03:14 Review of Systems Constitutional Constitutional: Denies chills, Denies fatigue, Denies fever(s), Denies frequent falls, Reports headache(s), Denies lethargy and Denies weakness Eyes Eyes: Denies change in vision, Denies eye discharge, Denies irritation and Denies loss of vision ENT Ears, Nose, Mouth, and Throat: Denies change in voice, Denies dizziness, Reports headache(s), Denies neck pain, Denies sore throat and Denies throat swelling Cardiovascular Cardiovascular: Denies chest pain, Denies irregular heart rhythm, Denies lightheadedness, Denies palpitations, Denies dyspnea, Denies dyspnea on exertion and Denies orthopnea Respiratory Respiratory: Denies cough, Denies dyspnea, Denies dyspnea on exertion and Denies wheezing Gastrointestinal Gastrointestinal: Denies abdominal pain, Denies change in bowel habits, Denies diarrhea, Denies nausea and Denies vomiting Musculoskeletal Musculoskeletal: Denies neck pain and Denies numbness Integumentary/Breasts Skin/Breast: Denies pruritus, Denies erythema, Denies rash and Denies wounds Neurologic Neurologic: Denies behavioral changes, Denies confusion, Denies dizziness, Denies frequent falls, Reports headache(s), Denies loss of vision, Denies numbness and Denies weakness Psychiatric Psychiatric: Denies anxiety, Denies behavioral changes, Denies confusion, Denies depression, Denies homicidal ideation and Denies suicidal ideation Endocrine Endocrine: Denies fatigue, Denies flushing and Denies palpitations Hematologic/Lymphatic Hematologic/Lymphatic: Denies easy bruising Allergic/Immunologic Allergic/Immunologic: Denies urticaria, Denies throat swelling and Denies wheezing Patient History Medical History Mild asthma (Chronic) No pertinent family history (Chronic) Surgical History No pertinent past surgical history (Chronic) Social History Smoking Status: Current some day smoker Smoking Status: Current some day smoker alcohol intake frequency: holidays/special occasions only Substance Use Type: does not use Exam Narrative Exam Narrative: GENERAL: [24] year old patient appears stated age. Well- nourished, well-developed patient, in mild distress. Rubbing her head, sitting in a dark room HEAD: Atraumatic. Normocephalic. EYES: Pupils equal round and reactive. Extraocular motions intact. No scleral icterus. No injection or drainage. ENT: Nose without bleeding, purulent drainage. Throat without erythema, tonsillar hypertrophy or exudate. Airway patent. NECK: Trachea midline. Non tender CARDIOVASCULAR: Regular rate and rhythm without murmurs, gallops, or rubs. RESPIRATORY: Clear to auscultation. Breath sounds equal bilaterally. No wheezes, rales, or rhonchi. GASTROINTESTINAL: Abdomen soft, non-tender, nondistended. EXTREMITIES: No edema or joint tenderness. BACK: Nontender without deformity or crepitance. No flank tenderness. NEURO: AOx3. SKIN: No rash or erythema of visible areas NIH Stroke Scale 1a. LOC: Patient is alert and keenly responsive (0) 1b. LOC Questions: Patient answers both LOC questions accurately (0) 1c. LOC Commands: Patient performs both tasks correctly (0) 2. Best Gaze: Normal (0) 3. Visual: No visual loss (0) 4. Facial palsy: Normal symmetrical movements (0) 5. Motor arm: No drift (0) 6. Motor leg: No drift (0) 7. Limb ataxia: Absent (0) 8. Sensory: Normal (0) 9. Best language: No aphasia; normal (0) 10. Dysarthria: Normal (0) 11. Extinction and inattention: No abnormality (0) NIHSS: 0 Initial Vital Signs Initial Vital Signs: Vital Signs Temperature 97.2 F L 04/13/20 03:14 Pulse Rate 76 04/13/20 03:14 Respiratory Rate 15 04/13/20 03:14 Blood Pressure 129/92 H 04/13/20 03:14 Pulse Oximetry 97 04/13/20 03:14 Course Course Course Narrative: Near complete resolution of symptoms after above-stated therapies Orders Ordered: Discontinued Medications Dexamethasone (Decadron) 10 mg IV NOW ONE Stop: 04/13/20 03:15 Last Admin: 04/13/20 03:34 Dose: 10 mg Documented by: JONH Sodium Chloride (Normal Saline 0.9%) 1,000 mls @ 1,000 mls/hr IV BOLUS ONE Stop: 04/13/20 04:13 Last Infusion: 04/13/20 04:44 Dose: 0 mls/hr Documented by: Admin: 04/13/20 03:33 Dose: 1,000 mls/hr Documented by: JONH Ketorolac Tromethamine (Toradol) 15 mg IV NOW ONE Stop: 04/13/20 03:15 Last Admin: 04/13/20 03:34 Dose: 15 mg Documented by: JONH Metoclopramide HCl (Reglan) 10 mg IV NOW ONE Stop: 04/13/20 03:15 Last Admin: 04/13/20 03:34 Dose: 10 mg Documented by: JONH Vital Signs Vital signs: Vital Signs - 8 hr 04/13/20 03:14 04/13/20 04:49 Temperature 97.2 F L Pulse Rate 76 69 Respiratory Rate 15 16 Blood Pressure 129/92 H 126/76 Pulse Oximetry 97 98 Discharge Plan Departure Patient Disposition: Home Clinical Impression: Migraine Qualifiers: Migraine type: unspecified Status migrainosus presence: without status migrainosus Intractability: not intractable Qualified Code(s): G43.909 - Migraine, unspecified, not intractable, without status migrainosus Discharge Date/Time: 04/13/20 04:49 Instructions: DI for Migraine, DI for Headache Activity Restrictions/Additional Instructions: *You have been diagnosed with [migraine-type headache] *What to do: *Take medications as directed *Follow up with your primary care provider in 2-3 days, call for an appointment. Let them know you were seen in the Emergency Department and that we ask that you be seen in follow up *Return to ER if you should have any new, worsening or concerning symptoms Prescriptions: No Action lidocaine HCl [Lidocaine Viscous] 2 % solution 15 ml PO Q4-6H PRN (Reason: ST) Qty: 150 RF: 0 albuterol sulfate 90 mcg/actuation HFA aerosol inhaler 2 inhalation INHALATION Q4-6H PRN (Reason: cough/asthma) Qty: 8.5 RF: 0 esomeprazole magnesium 40 mg capsule,delayed release(DR/EC) 40 mg PO DAILY Qty: 14 RF: 0 Referrals: Rzo Willis MD [Primary Care Provider] -
[2020-04-13 03:14] VITALS: BP 129/92; PULSE 76; RESP 15; TEMP 36.2; O2SAT 97; BMI 32.9
[2020-04-13] MEDS: SODIUM CHLORIDE 0.9% 1,000 ML 1000 ML IV (03:33)
[2020-04-13] MEDS: METOCLOPRAMIDE 10 MG/2 ML INJ IV (03:34)
[2020-04-13] MEDS: DEXAMETHASONE 10 MG/ML VIAL IV (03:34)
[2020-04-13] MEDS: KETOROLAC 60 MG/2 ML VIAL 15 MG IV (03:34)
[2020-04-13 04:49] VITALS: BP 126/76; PULSE 69; RESP 16; O2SAT 98
== END 2020-04-13 04:49 | disposition home or self-care (01) ==
PROVIDERS: Emergency Provider Emergency Medicine; PCP Family Medicine
DX: G43.909 Migraine, unspecified, not intractable, without status migrainosus (principal)
CPT/HCPCS: 36415; 96361; 96374; 96375; 99284; J1100; J1885; J2765

== ENCOUNTER → 2020-07-27 11:11 | Outpatient (CLI) | payer OTHER, MEDICAID, SELFPAY ==
--- NOTE | 2020-07-27 11:13 | DI.RAD.S_ITS ---
PROCEDURE: XR FOOT RT MIN 3V INDICATIONS: left knee pain TECHNIQUE: 3 views of the foot were acquired. COMPARISON: [facility], , XR FOOT LT MIN 3V, 07/27/2020, 12:16. FINDINGS: Bones: No fractures or dislocations. No suspicious bony lesions. Soft tissues: No tibiotalar joint effusion. Achilles tendon appears normal. IMPRESSION: Normal right foot Dictated by: Jhonathan Albright M.D. on 07/27/2020 at 12:12 Approved by: Jhonathan Albright M.D. on 07/27/2020 at 12:13
--- NOTE | 2020-07-27 11:13 | DI.RAD.S_ITS ---
PROCEDURE: XR FOOT LT MIN 3V INDICATIONS: left knee pain TECHNIQUE: 3 views of the foot were acquired. COMPARISON: None. FINDINGS: Bones: No fractures or dislocations. No suspicious bony lesions. Soft tissues: No tibiotalar joint effusion. Achilles tendon appears normal. IMPRESSION: Normal left foot Dictated by: Jhonathan Albright M.D. on 07/27/2020 at 12:09 Approved by: Jhonathan Albright M.D. on 07/27/2020 at 12:11
--- NOTE | 2020-07-27 11:13 | DI.RAD.S_ITS ---
PROCEDURE: XR KNEE LT 3V INDICATIONS: left knee pain TECHNIQUE: 3 views of the knee were acquired. COMPARISON: [facility], , XR KNEE RT 3V, 07/27/2020, 12:20. FINDINGS: Bones: No fractures or dislocations. No suspicious bony lesions. Soft tissues: No joint effusion. No suspicious soft tissue calcifications. IMPRESSION: Normal left knee Dictated by: Jhonathan Albright M.D. on 07/27/2020 at 12:14 Approved by: Jhonathan Albright M.D. on 07/27/2020 at 12:15
--- NOTE | 2020-07-27 11:13 | DI.RAD.S_ITS ---
PROCEDURE: XR KNEE RT 3V INDICATIONS: left knee pain TECHNIQUE: 3 views of the knee were acquired. COMPARISON: None. FINDINGS: Bones: No fractures or dislocations. No suspicious bony lesions. Soft tissues: No joint effusion. No suspicious soft tissue calcifications. IMPRESSION: Normal right knee Dictated by: Jhonathan Albright M.D. on 07/27/2020 at 12:13 Approved by: Jhonathan Albright M.D. on 07/27/2020 at 12:14
[2020-07-27 14:12] LABS: Alanine Aminotransferase 54 IU/L (<35); Albumin 4.5 g/dL (3.5-5.0); Albumin Globulin Ratio 1.9 (1.0-2.8); Alkaline Phosphatase 61 U/L (38-126); Aspartate Aminotransferase 35 IU/L (14-36); BUN Creatinine Ratio 12.9 (6-22); Bilirubin Total 1.1 mg/dL (0.2-1.3); Blood Urea Nitrogen 9 mg/dL (7-17); Calcium 9.4 mg/dL (8.4-10.2); Carbon Dioxide 26 mmol/L (22-32); Chloride 103 mmol/L (98-107); Estimated Glomerular Filt Rate > 60.0 mL/min (>60); Globulin 2.4 g/dL (1.7-4.1); Glucose 84 mg/dL (70-100); HEMOLYSIS < 15 (0-50); Potassium 4.1 mmol/L (3.4-5.1); Sodium 136 mmol/L (137-145); Total Protein 6.9 g/dL (6.3-8.2)
== END ==
PROVIDERS: PCP Registered Nurse; Referring Provider Registered Nurse; Visit Provider Registered Nurse
DX: M79.672 Pain in left foot (principal); M25.562 Pain in left knee; M79.671 Pain in right foot; M25.561 Pain in right knee; F41.8 Other specified anxiety disorders
CPT/HCPCS: 36415; 73562; 73630; 80053

== ENCOUNTER → 2020-08-18 13:52 | Outpatient (CLI) | payer OTHER, MEDICAID, SELFPAY ==
[2020-08-18 16:19] LABS: Alanine Aminotransferase 49 IU/L (<35); Albumin 4.5 g/dL (3.5-5.0); Albumin Globulin Ratio 1.5 (1.0-2.8); Alkaline Phosphatase 67 U/L (38-126); Aspartate Aminotransferase 35 IU/L (14-36); BUN Creatinine Ratio 17.8 (6-22); Bilirubin Total 0.7 mg/dL (0.2-1.3); Blood Urea Nitrogen 13 mg/dL (7-17); Calcium 9.8 mg/dL (8.4-10.2); Carbon Dioxide 27 mmol/L (22-32); Chloride 106 mmol/L (98-107); Estimated Glomerular Filt Rate > 60.0 mL/min (>60); Glucose 96 mg/dL (70-100); HEMOLYSIS < 15 (0-50); Potassium 4.1 mmol/L (3.4-5.1); Sodium 137 mmol/L (137-145); Total Protein 7.5 g/dL (6.3-8.2)
== END ==
PROVIDERS: PCP Registered Nurse; Referring Provider Registered Nurse; Visit Provider Registered Nurse
DX: R89.9 Unspecified abnormal finding in specimens from other organs, systems and tissues (principal)
CPT/HCPCS: 36415; 80053

== ENCOUNTER 2020-11-22 09:00 | Outpatient (RCR) | payer OTHER, SELFPAY ==
--- NOTE | 2020-11-08 09:00 | PT.OIE ---
Current Diagnoses Other chronic pain (11/08/20) Pain in right wrist (11/08/20) Pain in right knee (11/08/20) Pain in left knee (11/08/20) Stiffness of right wrist, not elsewhere classified (11/08/20) Past Medical History (This Medical Record has been edited. Action required.) Anxiety with depression (~2016) Asthma (~2016) Chlamydia (~2012) Chronic back pain (~2017) History of recurrent ear infection (~2017) IBS (irritable bowel syndrome) (~2018) Migraines (~2016) Mild asthma No pertinent family history PTSD (post-traumatic stress disorder) (~2016) Right wrist pain Tinnitus (~2017) Past Surgical History (This Medical Record has been edited. Action required.) No pertinent past surgical history Visit Care Team Role Provider Type RAFIA Khanna Primary Care Provider Advanced Perforator Loader Specialty: Medical Address: [address] [place] [address] Email: [email or web address] Attending Provider Advanced Perforator Loader Referring Provider Specialty: Family Practice Address: [address] [place] [address], [facility] Email: [email or web address] Physical Therapy Initial Evaluation PT-OP-A Visit Information Start: 11/08/20 17:59 Freq: Status: Active Protocol: Document 11/08/20 09:00 DLM (Rec: 11/08/20 19:17 DLM [email or web address]) Out-Patient Physical Therapy Visit Information Visit Information Visit Type Initial Evaluation Visit Start Time 09:00 Visit Stop Time 09:50 Total Visit Minutes 50 Visit Number 1 Number of MIXED ANIMAL VETERINARIAN Visits 0 Evaluation Information Evaluation Date 11/08/20 Precautions Precautions RIGHT finger fractures at this time per pt PT-OP-B Current Condition Start: 11/08/20 17:59 Freq: Status: Active Protocol: Document 11/08/20 09:00 DLM (Rec: 11/08/20 19:17 DLM [email or web address]) Current Condition History of Current Condition Onset Date Aug 2020 Current Complaints bilateral knee pain, right wrist pain History of Current Condition She reports having bilateral knee pain since 2016. The knee pain got worse in Aug when she took a new job. She reports using cory wraps on her knees helps a little but she can not use them at work. She reports her knees lock up sometimes. Sometimes when her right knee pops it locks and she has a protrusion in lateral knee area; someone has to pull on her leg to get the knee to pop again so she can walk again. She reports her right wrist pain is doing ok right now and she can work with it. She uses cory wraps on right wrist at home. She also reports having two fractured fingers on right hand at this time. Prior Treatments and Tests x-rays on knees, no injections in knees, injections in her feet for plantarfascitis Treatment Goals Patient/Caregiver Goals decrease her knee pain so it is easier to work Prior Functional Status Baseline Function- ADL's Independent Baseline Function- Mobility Independent Baseline Function- Gait Independent without device Baseline Function- Work/School works time clock repairer at [employer] Baseline Function- Other She was in the [employer] and in the [employer] before current occupation Current Functional Impairments (Reported) Functional Limitations- ADL's Independent but needs more time and is painful Functional Limitations- Mobility/Gait Independent but limps, no device used, feels challenged to bend down and be able to get back up due to her knee pain Functional Limitations- Work/School 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 Functional Limitations- Recreation/ pain wakes her up at night Hobbies Functional Limitations- Other she does a stretching program at home, she tried insoles in her shoes but they do not help Personal Factors Other Personal Factors That May Effect eating one meal a day, being Therapy/Recovery treated for depression, hx plantarfascitis, smoker PT-OP-C Subjective Start: 11/08/20 17:59 Freq: Status: Active Protocol: Document 11/08/20 09:00 DLM (Rec: 11/08/20 19:17 DLM [email or web address]) OP-PT Subjective Patient Comments Patient Comments She feels she is doing okay with her wrist right now but is worried about her knee pain Patient Questionnaires Lower Extremity Functional Scale LEFS Score 34/80 LEFS Impairment 40 to 59% Impaired (Score 32- 47) OP-PT Pain Assessment Pain Assessment Grid Paper Pain Assessment Grid Completed Yes: paper copy scanned into chart Location Wrist Pain Location Details bilateral wrists Intensity 7 Scale Used Numeric (0 - 10) Description Aching,Tingling,With Movement Frequency Frequent Variations/Patterns wakes up with hands tingling at night Pain Aggravating Factors Lifting Pain Alleviating Factors Rest Other Pain Alleviating Factors taking a bath after work Left Knee Pain Location Details Left knee Intensity 7 Scale Used Numeric (0 - 10) Description Aching,Burning,Sharp,Stabbing, Tingling Frequency Constant Variations/Patterns worse with use of her knees Pain Aggravating Factors Walking,Bending,Lifting Pain Alleviating Factors Cold,Rest Other Pain Alleviating Factors taking a bath after work Right knee Pain Location Details right knee Intensity 8 Scale Used Numeric (0 - 10) Description Aching,Burning,Sharp,Tingling Frequency Constant Variations/Patterns worse with use of her knees Pain Aggravating Factors Standing,Walking,Bending, Lifting Pain Alleviating Factors Cold,Rest Other Pain Alleviating Factors taking a bath after work Pain Behaviors Pain Behaviors Facial Grimacing,Guarding, Wincing PT-OP-F Manual Assessment Start: 11/08/20 17:59 Freq: Status: Active Protocol: Document 11/08/20 09:00 DLM (Rec: 11/08/20 19:17 DLM [email or web address]) Manual Assessments Joint Mobility Assessment Joint Mobility Assessment she is very painful to any attempts to mobilize her knees, guarding noted PT-OP-G Mobility & Gait Start: 11/08/20 17:59 Freq: Status: Active Protocol: Document 11/08/20 09:00 DLM (Rec: 11/08/20 19:17 DLM [email or web address]) OP Mobility Evaluation Bed Mobility Rolling Independent Supine to and from Sit Independent Transfers Sit to Stand Independent with use of UE's OP Gait Assessment Gait Gait Assistance Required: Independent Assistive Devices Assistive Device None Gait Deviations General Gait Pattern Antalgic Factors Limiting Gait Function Factors Limiting Gait Function Decreased Strength,Pain Comments Gait Comments keeping right knee flexed during weight bearing, decreased stance time on right LE PT-OP-K Range of Motion Start: 11/08/20 17:59 Freq: Status: Active Protocol: Document 11/08/20 09:00 DLM (Rec: 11/08/20 19:17 DLM [email or web address]) Hip Goniometric Range of Motion Hip Left Passive Hip ROM WFL No Testing Position Supine Comments pain with end range hip Internal rotation, no pain with ER. No pain right hip Knee Goniometric Range of Motion Knee Left Knee ROM WFL No Patient Position Prone Flexion Active (degrees) 118 Extension Active (degrees) 0 Comments low back pain with full knee flexion in prone, knee extension assessed in supine Right Knee ROM WFL No Patient Position Prone Flexion Active (degrees) 118 Extension Active (degrees) 0 Comments low back pain with full knee flexion in prone, extension assessed in supine Ankle and Foot Goniometric Range of Motion Ankle and Foot Right Active Testing Position Supine Dorsiflexion with Knee Extended 2 Left Active Testing Position Supine Dorsiflexion with Knee Extended 4 PT-OP-L Special Tests Start: 11/08/20 17:59 Freq: Status: Active Protocol: Document 11/08/20 09:00 DLM (Rec: 11/08/20 19:17 DLM [email or web address]) Special Tests Knee Special Tests Apley's Compression Test Results left is negative, right has mild pain Valgus- 25 Degrees Test Results negative bilaterally Straight Leg Raise Test Results Left 87 degrees, right 80 degrees Posterior Sag Test Results negative bilaterally Patellar Grind Test Test Results increased pain bilaterally Anterior Draw Test Results negative bilaterally PT-OP-M Strength Start: 11/08/20 17:59 Freq: Status: Active Protocol: Document 11/08/20 09:00 DLM (Rec: 11/08/20 19:17 DLM [email or web address]) Hip Strength Hip Manual Muscle Testing Left Flexion (L2) 5 Normal Extension (S1) 5 Normal Abduction 5 Normal Right Flexion (L2) 4 Good Extension (S1) 5 Normal Abduction 4+ Good+ Knee Strength Knee Manual Muscle Testing Left Flexion (S2) 4 Good Extension (L3) 4 Good Comments painful but less than right Right Flexion (S2) 3+ Fair+ Extension (L3) 4- Good- Comments pain limited, tremulous with resisted flexion Ankle/Foot Strength Ankle and Foot Manual Muscle Testing Left Dorsiflexion (L4) 5 Normal Plantarflexion (S1) 5 Normal Inversion 5 Normal Eversion (S1) 5 Normal Right Dorsiflexion (L4) 5 Normal Plantarflexion (S1) 5 Normal Inversion 5 Normal Eversion (S1) 5 Normal PT-OP-T Assessment and Plan Start: 11/08/20 17:59 Freq: Status: Active Protocol: Document 11/08/20 09:00 DLM (Rec: 11/08/20 19:17 DLM [email or web address]) Physical Therapy Assessment Rehab Potential Rehabilitation Potential Good Evaluation Complexity Number of Personal Factors/Comorbidities 3 or More Number of Body Systems Impaired 4 or More Clinical Presentation at Evaluation Evolving Impairments Impairments Activity Tolerance,Functional Mobility,Gait,Pain,ROM, Strength Goals Three Impairment Impaired gait Short Term Goal (STG) Normalize gait pattern without device STG Duration 4 weeks Nursing Home Goal (LTG) Tolerate bending down to stand up without increased knee pain LTG Duration 8 weeks Two Impairment Pain bilateral knees, 7-8/10 Short Term Goal (STG) Decrease her knee pain to 5/10 STG Duration 4 weeks Nursing Home Goal (LTG) Decrease her knee pain to 3/10 LTG Duration 8 weeks One Impairment Knee ROM Short Term Goal (STG) Increased active knee flexion to 122 degrees without back pain STG Duration 4 weeks Nursing Home Goal (LTG) Ambulate with full knee extension on right knee LTG Duration 8 weeks Progress Towards Goals Progress Comments small decrease in her knee pain with improved gait pattern at the end of this visit Assessment Summary Assessment Sarah presents with bilateral knee pain and bilateral wrist pain. Only assessed her knees this visit. Her referral includes her right wrist pain but she currently reports having fractured fingers which limits her ability to participate in therapy for her wrist. Clinical exam suggests degenerative changes in her knees but no clear sign of internal derangement. She has hamstring and quad tightness that may be contributing to increased stress on her knees. Her bilateral plantarfascitis may also be contributing to the stress on her knees. Unclear why her current stretching program at home has not improved her flexibility. She is a good candidate for physical therapy to address the impairments noted above in the eval. She may be a good candidate for pool therapy but unclear if this will be possible with her current work schedule. Pt reports she will intially only be able to attend therapy once a week but plans to increase to twice a week as possible around her work schedule. Physical Therapy Plan Frequency and Duration Frequency of Treatment 2x/Week Duration of Treatment 8 weeks Plan of Care Start Date 11/08/20 Plan of Care End Date 01/08/21 Therapeutic Interventions Therapeutic Interventions Gait Training,Home Exercise Program,Joint Mobilizations, Manual Therapy,Patient/ Caregiver Education,Self-Care/ Home Management,Soft Tissue Mobilization,Taping, Therapeutic Activities, Therapeutic Exercises Modalities Cold Pack/Ice Massage,Electric Stimulation,Hot Packs, Ultrasound Next Visit Focus/Plan Next Note Type Treatment Note Next Visit Plan begin modalities for pain management, start exercises, pt to bring in a list of the stretches she is doing at home
--- NOTE | 2020-11-08 09:00 | PT.OPPOC ---
Physical, Occupational & Speech Therapy At [facility] Current Diagnoses Other chronic pain (11/08/20) Pain in right wrist (11/08/20) Pain in right knee (11/08/20) Pain in left knee (11/08/20) Stiffness of right wrist, not elsewhere classified (11/08/20) Visit Care Team Role Provider Type RAFIA Khanna Primary Care Provider [employer] Program Coordinator Specialty: Medical Address: [address] [place] [address], [facility] Email: [email or web address] RAFIA Arredondo Attending Provider [employer] Program Coordinator Referring Provider Specialty: Family Practice Address: [address] [place] [address], [facility] Email: [email or web address] Plan Of Care PT-OP-T Assessment and Plan Start: 11/08/20 17:59 Freq: Status: Active Protocol: Document 11/08/20 09:00 DLM (Rec: 11/08/20 19:17 DLM [email or web address]) Physical Therapy Assessment Rehab Potential Rehabilitation Potential Good Evaluation Complexity Number of Personal Factors/Comorbidities 3 or More Number of Body Systems Impaired 4 or More Clinical Presentation at Evaluation Evolving Impairments Impairments Activity Tolerance,Functional Mobility,Gait,Pain,ROM, Strength Goals Three Impairment Impaired gait Short Term Goal (STG) Normalize gait pattern without device STG Duration 4 weeks Long-Term Goal (LTG) Tolerate bending down to stand up without increased knee pain LTG Duration 8 weeks Two Impairment Pain bilateral knees, 7-8/10 Short Term Goal (STG) Decrease her knee pain to 5/10 STG Duration 4 weeks Long-Term Goal (LTG) Decrease her knee pain to 3/10 LTG Duration 8 weeks One Impairment Knee ROM Short Term Goal (STG) Increased active knee flexion to 122 degrees without back pain STG Duration 4 weeks Skate Shop Attendant Goal (LTG) Ambulate with full knee extension on right knee LTG Duration 8 weeks Progress Towards Goals Progress Comments small decrease in her knee pain with improved gait pattern at the end of this visit Assessment Summary Assessment Sarah presents with bilateral knee pain and bilateral wrist pain. Only assessed her knees this visit. Her referral includes her right wrist pain but she currently reports having fractured fingers which limits her ability to participate in therapy for her wrist. Clinical exam suggests degenerative changes in her knees but no clear sign of internal derangement. She has hamstring and quad tightness that may be contributing to increased stress on her knees. Her bilateral plantarfascitis may also be contributing to the stress on her knees. Unclear why her current stretching program at home has not improved her flexibility. She is a good candidate for physical therapy to address the impairments noted above in the eval. She may be a good candidate for pool therapy but unclear if this will be possible with her current work schedule. Pt reports she will intially only be able to attend therapy once a week but plans to increase to twice a week as possible around her work schedule. Physical Therapy Plan Frequency and Duration Frequency of Treatment 2x/Week Duration of Treatment 8 weeks Plan of Care Start Date 11/08/20 Plan of Care End Date 01/08/21 Therapeutic Interventions Therapeutic Interventions Gait Training,Home Exercise Program,Joint Mobilizations, Manual Therapy,Patient/ Caregiver Education,Self-Care/ Home Management,Soft Tissue Mobilization,Taping, Therapeutic Activities, Therapeutic Exercises Modalities Cold Pack/Ice Massage,Electric Stimulation,Hot Packs, Ultrasound Next Visit Focus/Plan Next Note Type Treatment Note Next Visit Plan begin modalities for pain management, start exercises, pt to bring in a list of the stretches she is doing at home Plan of Care Dates Plan of Care Start Date 11/08/20 Plan of Care End Date 01/08/21 Electronically Signed by: Mónica Foster, PT 11/08/20 [id number] Please Sign and Return: I have reviewed this Plan of Care and certify that the skilled therapy services above are required to meet the patient?s needs. Physician Signature Date Printed Name and Credentials
--- NOTE | 2020-11-22 12:28 | PT.OTN ---
Current Diagnoses Other chronic pain (11/22/20) Pain in right wrist (11/22/20) Pain in right knee (11/22/20) Pain in left knee (11/22/20) Stiffness of right wrist, not elsewhere classified (11/22/20) Physical Therapy Treatment Note PT-OP-A Visit Information Start: 11/08/20 17:59 Freq: Status: Active Protocol: Document 11/22/20 09:45 AW (Rec: 11/22/20 09:46 AW [email or web address]) Out-Patient Physical Therapy Visit Information Visit Information Visit Type Treatment Note Visit Start Time 09:00 Visit Stop Time 09:48 Total Visit Minutes 48 Visit Number 2 Number of OWNER PROFESSIONAL ENGINEER Visits 0 Evaluation Information Evaluation Date 11/08/20 PT-OP-B Current Condition Start: 11/08/20 17:59 Freq: Status: Active Protocol: Document 11/08/20 09:00 DLM (Rec: 11/08/20 19:17 DLM [email or web address]) Current Condition History of Current Condition Onset Date Aug 2020 Current Complaints bilateral knee pain, right wrist pain History of Current Condition She reports having bilateral knee pain since 2016. The knee pain got worse in Aug when she took a new job. She reports using cory wraps on her knees helps a little but she can not use them at work. She reports her knees lock up sometimes. Sometimes when her right knee pops it locks and she has a protrusion in lateral knee area; someone has to pull on her leg to get the knee to pop again so she can walk again. She reports her right wrist pain is doing ok right now and she can work with it. She uses cory wraps on right wrist at home. She also reports having two fractured fingers on right hand at this time. Prior Treatments and Tests x-rays on knees, no injections in knees, injections in her feet for plantarfascitis Treatment Goals Patient/Caregiver Goals decrease her knee pain so it is easier to work Prior Functional Status Baseline Function- ADL's Independent Baseline Function- Mobility Independent Baseline Function- Gait Independent without device Baseline Function- Work/School works multimedia designer at [employer] Baseline Function- Other She was in the [employer] and in the [employer] before current occupation Current Functional Impairments (Reported) Functional Limitations- ADL's Independent but needs more time and is painful Functional Limitations- Mobility/Gait Independent but limps, no device used, feels challenged to bend down and be able to get back up due to her knee pain Functional Limitations- 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 Functional Limitations- Recreation/ pain wakes her up at night Hobbies Functional Limitations- Other she does a stretching program at home, she tried insoles in her shoes but they do not help Personal Factors Other Personal Factors That May Effect eating one meal a day, being Therapy/Recovery treated for depression, hx plantarfascitis, smoker PT-OP-C Subjective Start: 11/08/20 17:59 Freq: Status: Active Protocol: Document 11/22/20 09:45 AW (Rec: 11/22/20 09:46 AW [email or web address]) OP-PT Subjective Patient Comments Patient Comments It really hurts today. I've been on my knees a lot at work even though I'm supposed to be standing more than kneeling . OP-PT Pain Assessment Pain Behaviors Pain Behaviors Facial Grimacing,Guarding, Wincing Comments Pain Comments Painful to palpation - even light touch - at bilateral patellae (R more affected than L). PT-OP-F Manual Assessment Start: 11/08/20 17:59 Freq: Status: Active Protocol: Document 11/08/20 09:00 DLM (Rec: 11/08/20 19:17 DLM [email or web address]) Manual Assessments Joint Mobility Assessment Joint Mobility Assessment she is very painful to any attemps to mobilize her knees, guarding noted PT-OP-G Mobility & Gait Start: 11/08/20 17:59 Freq: Status: Active Protocol: Document 11/08/20 09:00 DLM (Rec: 11/08/20 19:17 DLM [email or web address]) OP Mobility Evaluation Bed Mobility Rolling Independent Supine to and from Sit Independent Transfers Sit to Stand Independent with use of UE's OP Gait Assessment Gait Gait Assistance Required: Independent Assistive Devices Assistive Device None Gait Deviations General Gait Pattern Antalgic Factors Limiting Gait Function Factors Limiting Gait Function Decreased Strength,Pain Comments Gait Comments keeping right knee flexed during weight bearing, decreased stance time on right LE PT-OP-K Range of Motion Start: 11/08/20 17:59 Freq: Status: Active Protocol: Document 11/08/20 09:00 DLM (Rec: 11/08/20 19:17 DL [email or web address]) Hip Goniometric Range of Motion Hip Left Passive Hip ROM WFL No Testing Position Supine Comments pain with end range hip Internal rotation, no pain with ER. No pain right hip Knee Goniometric Range of Motion Knee Left Knee ROM WFL No Patient Position Prone Flexion Active (degrees) 118 Extension Active (degrees) 0 Comments low back pain with full knee flexion in prone, knee extension assessed in supine Right Knee ROM WFL No Patient Position Prone Flexion Active (degrees) 118 Extension Active (degrees) 0 Comments low back pain with full knee flexion in prone, extension assessed in supine Ankle and Foot Goniometric Range of Motion Ankle and Foot Right Active Testing Position Supine Dorsiflexion with Knee Extended 2 Left Active Testing Position Supine Dorsiflexion with Knee Extended 4 PT-OP-L Special Tests Start: 11/08/20 17:59 Freq: Status: Active Protocol: Document 11/08/20 09:00 DLM (Rec: 11/08/20 19:17 DL [email or web address]) Special Tests Knee Special Tests Apley's Compression Test Results left is negative, right has mild pain Valgus- 25 Degrees Test Results negative bilaterally Straight Leg Raise Test Results Left 87 degrees, right 80 degrees Posterior Sag Test Results negative bilaterally Patellar Grind Test Test Results increased pain bilaterally Anterior Draw Test Results negative bilaterally PT-OP-M Strength Start: 11/08/20 17:59 Freq: Status: Active Protocol: Document 11/08/20 09:00 DLM (Rec: 11/08/20 19:17 DL [email or web address]) Hip Strength Hip Manual Muscle Testing Left Flexion (L2) 5 Normal Extension (S1) 5 Normal Abduction 5 Normal Right Flexion (L2) 4 Good Extension (S1) 5 Normal Abduction 4+ Good+ Knee Strength Knee Manual Muscle Testing Left Flexion (S2) 4 Good Extension (L3) 4 Good Comments painful but less than right Right Flexion (S2) 3+ Fair+ Extension (L3) 4- Good- Comments pain limited, tremulous with resisted flexion Ankle/Foot Strength Ankle and Foot Manual Muscle Testing Left Dorsiflexion (L4) 5 Normal Plantarflexion (S1) 5 Normal Inversion 5 Normal Eversion (S1) 5 Normal Right Dorsiflexion (L4) 5 Normal Plantarflexion (S1) 5 Normal Inversion 5 Normal Eversion (S1) 5 Normal PT-OP-Q Treatments Start: 11/08/20 17:59 Freq: Status: Active Protocol: Document 11/22/20 09:45 AW (Rec: 11/22/20 09:46 AW [email or web address]) Therapeutic Exercises Supine Exercises HS stretch Supine Exercise Name HS stretch Side bilateral Resistance manual Comments barely able to tolerate R knee in full extension álvaro test stretch Supine Exercise Name álvaro test stretch Side bilateral Reps/Minutes with knees in ~45 degrees flexion Comments added to HEP Therapeutic Activity Therapeutic Activity thessaly test Name Thessaly Comments positive with clicking R side, pain L side but no clicking Manual Therapy Treatment Nerve Glides sciatic Nerve sciatic Body Position Supine Reps/Duration 30 sec x 3 bilateral Comments during and after HS stretch PT-OP-R Modalities Start: 11/08/20 17:59 Freq: Status: Active Protocol: Document 11/22/20 09:45 AW (Rec: 11/22/20 09:46 AW [email or web address]) Electric Stimulation Electric Stimulation Interferential Current (IFC) Body Location R knee Duration (Minutes) 12 Intensity 12 Target/Sweep Target Comments tolerated well PT-OP-T Assessment and Plan Start: 11/08/20 17:59 Freq: Status: Active Protocol: Document 11/22/20 09:45 AW (Rec: 11/22/20 12:28 AW [email or web address]) Physical Therapy Assessment Impairments Impairments Activity Tolerance,Functional Mobility,Gait,Pain,ROM, Strength Goals Three Impairment Impaired gait Short Term Goal (STG) Normalize gait pattern without device STG Duration 4 weeks Shelter Goal (LTG) Tolerate bending down to stand up without increased knee pain LTG Duration 8 weeks Two Impairment Pain bilateral knees, 7-8/10 Short Term Goal (STG) Decrease her knee pain to 5/10 STG Duration 4 weeks Hospice Fellow Goal (LTG) Decrease her knee pain to 3/10 LTG Duration 8 weeks One Impairment Knee ROM Short Term Goal (STG) Increased active knee flexion to 122 degrees without back pain STG Duration 4 weeks Shelter Goal (LTG) Ambulate with full knee extension on right knee LTG Duration 8 weeks Assessment Summary Assessment Gait as pt arrives in notable for increased knee flexion bilaterally. She is sensitive to palpation of bilateral patellae (R worse than L) and Thessaly test is positive for clicking on the right side, pain on the left side. Initiated gentle ROM, stretching, and e-stim for pain management this date. Physical Therapy Plan Frequency and Duration Frequency of Treatment 2x/Week Duration of Treatment 8 weeks Plan of Care Start Date 11/08/20 Plan of Care End Date 01/08/21 Therapeutic Interventions Therapeutic Interventions Gait Training,Home Exercise Program,Joint Mobilizations, Manual Therapy,Patient/ Caregiver Education,Self-Care/ Home Management,Soft Tissue Mobilization,Taping, Therapeutic Activities, Therapeutic Exercises Modalities Cold Pack/Ice Massage,Electric Stimulation,Hot Packs, Ultrasound Next Visit Focus/Plan Next Note Type Treatment Note Next Visit Plan assess response to e-stim, continue with ROM, stretches. initiate isometric strength B knees
--- NOTE | 2021-03-15 08:38 | PT.OPDS ---
Current Diagnoses Other chronic pain (11/22/20) Pain in right wrist (11/22/20) Pain in right knee (11/22/20) Pain in left knee (11/22/20) Stiffness of right wrist, not elsewhere classified (11/22/20) Visit Care Team Role Provider Type RAFIA Khanna Primary Care Provider Advanced Cut Filer Specialty: Medical Address: [address] [place] [address], [id number] Email: [email or web address] RAFIA Arredondo Attending Provider Advanced Cut Filer Referring Provider Specialty: Family Practice Address: [address] [place] [address], [id number] Email: [email or web address] Visit Number Visit Number 2 Discharge Summary PT-OP-B Current Condition Start: 11/08/20 17:59 Freq: Status: Active Protocol: Document 11/08/20 09:00 DLM (Rec: 11/08/20 19:17 DLM [email or web address]) Current Condition History of Current Condition Onset Date Aug 2020 Current Complaints bilateral knee pain, right wrist pain History of Current Condition She reports having bilateral knee pain since 2016. The knee pain got worse in Aug when she took a new job. She reports using cory wraps on her knees helps a little but she can not use them at work. She reports her knees lock up sometimes. Sometimes when her right knee pops it locks and she has a protrusion in lateral knee area; someone has to pull on her leg to get the knee to pop again so she can walk again. She reports her right wrist pain is doing ok right now and she can work with it. She uses cory wraps on right wrist at home. She also reports having two fractured fingers on right hand at this time. 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, doing full duty even with fractured fingers, brake and alignment tech, increased pain and swelling in knees at the end of the work day. Functional Limitations- Recreation/ pain wakes her up at night Hobbies Functional Limitations- Other she does a stretching program at home, she tried insoles in her shoes but they do not help Personal Factors Other Personal Factors That May Effect eating one meal a day, being Therapy/Recovery treated for depression, hx plantarfascitis, smoker PT-OP-C Subjective Start: 11/08/20 17:59 Freq: Status: Active Protocol: Document 11/22/20 09:45 AW (Rec: 11/22/20 09:46 AW [email or web address]) OP-PT Subjective Patient Comments Patient Comments It really hurts today. I've been on my knees a lot at work even though I'm supposed to be standing more than kneeling . OP-PT Pain Assessment Pain Behaviors Pain Behaviors Facial Grimacing,Guarding, Wincing Comments Pain Comments Painful to palpation - even light touch - at bilateral patellae (R more affected than L). PT-OP-F Manual Assessment Start: 11/08/20 17:59 Freq: Status: Active Protocol: Document 11/08/20 09:00 DLM (Rec: 11/08/20 19:17 DLM [email or web address]) Manual Assessments Joint Mobility Assessment Joint Mobility Assessment she is very painful to any attemps to mobilize her knees, guarding noted PT-OP-G Mobility & Gait Start: 11/08/20 17:59 Freq: Status: Active Protocol: Document 11/08/20 09:00 DLM (Rec: 11/08/20 19:17 DLM [email or web address]) OP Mobility Evaluation Bed Mobility Rolling Independent Supine to and from Sit Independent Transfers Sit to Stand Independent with use of UE's OP Gait Assessment Gait Gait Assistance Required: Independent Assistive Devices Assistive Device None Gait Deviations General Gait Pattern Antalgic Factors Limiting Gait Function Factors Limiting Gait Function Decreased Strength,Pain Comments Gait Comments keeping right knee flexed during weight bearing, decreased stance time on right LE PT-OP-K Range of Motion Start: 11/08/20 17:59 Freq: Status: Active Protocol: Document 11/08/20 09:00 DLM (Rec: 11/08/20 19:17 DLM [email or web address]) Hip Goniometric Range of Motion Hip Left Passive Hip ROM WFL No Testing Position Supine Comments pain with end range hip Internal rotation, no pain with ER. No pain right hip Knee Goniometric Range of Motion Knee Left Knee ROM WFL No Patient Position Prone Flexion Active (degrees) 118 Extension Active (degrees) 0 Comments low back pain with full knee flexion in prone, knee extension assessed in supine Right Knee ROM WFL No Patient Position Prone Flexion Active (degrees) 118 Extension Active (degrees) 0 Comments low back pain with full knee flexion in prone, extension assessed in supine Ankle and Foot Goniometric Range of Motion Ankle and Foot Right Active Testing Position Supine Dorsiflexion with Knee Extended 2 Left Active Testing Position Supine Dorsiflexion with Knee Extended 4 PT-OP-L Special Tests Start: 11/08/20 17:59 Freq: Status: Active Protocol: Document 11/08/20 09:00 DLM (Rec: 11/08/20 19:17 DL [email or web address]) Special Tests Knee Special Tests Apley's Compression Test Results left is negative, right has mild pain Valgus- 25 Degrees Test Results negative bilaterally Straight Leg Raise Test Results Left 87 degrees, right 80 degrees Posterior Sag Test Results negative bilaterally Patellar Grind Test Test Results increased pain bilaterally Anterior Draw Test Results negative bilaterally PT-OP-M Strength Start: 11/08/20 17:59 Freq: Status: Active Protocol: Document 11/08/20 09:00 DLM (Rec: 11/08/20 19:17 DLM [email or web address]) Hip Strength Hip Manual Muscle Testing Left Flexion (L2) 5 Normal Extension (S1) 5 Normal Abduction 5 Normal Right Flexion (L2) 4 Good Extension (S1) 5 Normal Abduction 4+ Good+ Knee Strength Knee Manual Muscle Testing Left Flexion (S2) 4 Good Extension (L3) 4 Good Comments painful but less than right Right Flexion (S2) 3+ Fair+ Extension (L3) 4- Good- Comments pain limited, tremulous with resisted flexion Ankle/Foot Strength Ankle and Foot Manual Muscle Testing Left Dorsiflexion (L4) 5 Normal Plantarflexion (S1) 5 Normal Inversion 5 Normal Eversion (S1) 5 Normal Right Dorsiflexion (L4) 5 Normal Plantarflexion (S1) 5 Normal Inversion 5 Normal Eversion (S1) 5 Normal PT-OP-T Assessment and Plan Start: 11/08/20 17:59 Freq: Status: Active Protocol: Document 03/15/21 08:37 AW (Rec: 03/15/21 08:38 AW [email or web address]) Physical Therapy Plan Discharge Physical Therapy Discharge Reasons No Longer Attending PT Discharge Comments Pt has not attended since November 2020. Will discharge current plan of care.
== END 2021-03-16 15:32 | disposition home or self-care (01) ==
LOC: PHYS 09:00
PROVIDERS: PCP Registered Nurse; Referring Provider Nurse Practitioner; Visit Provider Nurse Practitioner
DX: M25.531 Pain in right wrist (principal); M25.561 Pain in right knee; M25.562 Pain in left knee; G89.29 Other chronic pain; M25.631 Stiffness of right wrist, not elsewhere classified
CPT/HCPCS: 97032; 97110; 97162

== ENCOUNTER 2020-12-13 12:35 | Emergency (ER) | payer OTHER, SELFPAY ==
[2020-12-13 12:38] VITALS: BP 128/89; PULSE 98; RESP 24; O2SAT 97; BMI 29.2
--- NOTE | 2020-12-13 12:46 | DI.RAD.S_ITS ---
PROCEDURE: XR CHEST 1V INDICATIONS: chest pain TECHNIQUE: One view of the chest was acquired. COMPARISON: None. FINDINGS: Surgical changes and devices: None. Lungs and pleura: Lungs are clear. No pleural effusions or pneumothorax. Mediastinum: Mediastinal contours appear normal. Heart size is normal. Bones and chest wall: No suspicious bony lesions. Overlying soft tissues appear unremarkable. IMPRESSION: No acute cardiopulmonary process. Dictated by: Heladio Helton M.D. on 12/13/2020 at 13:27 Approved by: Heladio Helton M.D. on 12/13/2020 at 13:34
--- NOTE | 2020-12-13 12:53 | ED.CHESTPAIN ---
HPI - Chest Pain General Chief Complaint: Chest Pain Stated Complaint: CHEST PAIN Time Seen by Provider: 12/13/20 12:51 Source: patient Mode of arrival: Ambulatory Limitations: no limitations History of Present Illness HPI narrative: 25-year-old female daily smoker with history of asthma presents with a chief complaint of sharp and stabbing anterior chest pain that started this morning. She states that it came on rather suddenly and is made worse by motion, deep breaths and palpation. She denies any recent injury, sneezing or coughing. She has had no fever or chills and denies nausea, vomiting or diarrhea. She denies any abdominal pain or change in bowel habits. She denies dysuria, frequency or urgency. She denies recent travel, dry hacking cough, hemoptysis, history of clot or cancer. She is constantly lifting heavy objects at work and wonders if she may have tweaked something. MD complaint: chest pain Onset (ago): hour(s) Duration: constant Onset: during rest Pain location: substernal Severity: moderate Quality: sharp Relieving factors: rest Exacerbating factors: inspiration, palpation and movement Treatments prior to arrival chest pain: none Related Data On Oral Contraceptives: No Previous Rx's Medication Instructions Recorded albuterol sulfate 2 inhalation INHALATION Q4-6H PRN 10/21/18 #8.5 gram lidocaine HCl [Lidocaine Viscous] 15 ml PO Q4-6H PRN #150 ml 10/21/18 esomeprazole magnesium 40 mg PO DAILY #14 cap 10/23/18 sertraline 25 mg tablet 25 mg PO DAILY 30 Days #30 tab 07/22/20 meloxicam 15 mg tablet 15 mg PO DAILY #90 tab 09/28/20 ketorolac 10 mg PO Q6H PRN #14 tab 12/13/20 Allergies Allergy/AdvReac Type Severity Reaction Status Date / Time lavender (Lavandula Allergy Severe Swelling Verified 12/13/20 12:48 angustifolia) of Lip/Tongue/Throat amoxicillin Allergy Verified 12/13/20 12:48 aspirin Allergy Verified 12/13/20 12:48 diphenhydramine Allergy Verified 12/13/20 12:48 [From Benadryl] Penicillins Allergy Verified 12/13/20 12:48 sumatriptan [From Imitrex] Allergy Verified 12/13/20 12:48 Review of Systems Constitutional Constitutional: Denies chills, Denies fatigue, Denies fever(s), Denies frequent falls, Denies lethargy and Denies weakness Eyes Eyes: Denies change in vision, Denies eye discharge, Denies irritation and Denies loss of vision ENT Ears, Nose, Mouth, and Throat: Denies change in voice, Denies dizziness, Denies neck pain, Denies sore throat and Denies throat swelling Cardiovascular Cardiovascular: Reports chest pain, Denies irregular heart rhythm, Denies lightheadedness, Denies palpitations, Denies dyspnea, Denies dyspnea on exertion and Denies orthopnea Respiratory Respiratory: Denies cough, Reports pain on inspiration, Denies dyspnea, Denies dyspnea on exertion and Denies wheezing Gastrointestinal Gastrointestinal: Denies abdominal pain, Denies change in bowel habits, Denies diarrhea, Denies nausea and Denies vomiting Musculoskeletal Musculoskeletal: Denies neck pain and Denies numbness Integumentary/Breasts Skin/Breast: Denies pruritus, Denies erythema, Denies rash and Denies wounds Neurologic Neurologic: Denies behavioral changes, Denies confusion, Denies dizziness, Denies frequent falls, Denies loss of vision, Denies numbness and Denies weakness Psychiatric Psychiatric: Denies anxiety, Denies behavioral changes, Denies confusion, Denies depression, Denies homicidal ideation and Denies suicidal ideation Endocrine Endocrine: Denies fatigue, Denies flushing and Denies palpitations Hematologic/Lymphatic Hematologic/Lymphatic: Denies easy bruising Allergic/Immunologic Allergic/Immunologic: Denies urticaria, Denies throat swelling and Denies wheezing Patient History Medical History Anxiety with depression (~2016) Asthma (~2016) Chlamydia (~2012) Chronic back pain (~2017) History of recurrent ear infection (~2017) IBS (irritable bowel syndrome) (~2018) Migraines (~2016) Mild asthma No pertinent family history PTSD (post-traumatic stress disorder) (~2016) Right wrist pain Tinnitus (~2017) Surgical History No pertinent past surgical history Social History Smoking Status: Current every day smoker Smoking Status: Current every day smoker alcohol intake frequency: holidays/special occasions only Substance Use Type: does not use Exam Narrative Exam Narrative: GEN: AOx3 and in mild distress, resting comfortably though a bit anxious EYES: Pupils are equal, round, and reactive to light and accommodation. Extraoccular muscles are intact bilaterally. There is no subconjunctival hemorrhage or exudate. CHEST: Lungs are clear to auscultation bilaterally and free of wheezes, rales, or rhonchi. Heart rate is regular rhythm, there are no murmurs, clicks, rubs, or gallops. Anterior chest painful to palpation, similar pain is exacerbated by deep breath ABD: Abdomen is soft and nontender. There is no guarding or rebound. Bowel sounds are normal in all 4 quadrants. There is no mass or organomegaly. EXT: Full painless ROM of all extremities with no loss of sensation or strength. SKIN: Warm, pink, and dry. No erythema or rash Initial Vital Signs Initial Vital Signs: Vital Signs Pulse Rate 98 H 12/13/20 12:38 Respiratory Rate 24 12/13/20 12:38 Blood Pressure 128/89 12/13/20 12:38 Pulse Oximetry 97 12/13/20 12:38 Course Course Course Narrative: Patient reports significant improvement symptoms after above-stated therapies Orders Ordered: Discontinued Medications Ketorolac Tromethamine (Ketorolac 30 Mg/Ml Vial) 15 mg IV NOW ONE Stop: 12/13/20 12:55 Last Admin: 12/13/20 13:17 Dose: 15 mg Documented by: MILA Vital Signs Vital signs: Vital Signs - 8 hr 12/13/20 12:38 12/13/20 13:08 12/13/20 13:10 Pulse Rate 98 H 86 86 Respiratory Rate 24 22 Blood Pressure 128/89 115/80 Pulse Oximetry 97 97 96 12/13/20 13:30 12/13/20 13:31 Pulse Rate 80 79 Respiratory Rate 24 25 H Blood Pressure 121/85 Pulse Oximetry 96 95 MDM - Chest Pain Lab Data Result diagrams: 12/13/20 13:05 12/13/20 13:05 Labs: Lab Results 12/13/20 12/13/20 12/13/20 Range/Units 13:05 13:05 13:05 WBC 11.1 H (4.5-11.0) X10^3/uL RBC 4.62 (4.0-5.2) X10^6/uL Hgb 14.3 (12.0-16.0) g/dL Hct 41.0 (36-46) % MCV 88.9 (80-100) fL MCH 31.0 (26-34) PG MCHC 34.9 (30-36) % RDW 13.0 (11.6-14.8) % Plt Count 228 (150-400) X10^3/uL Neut % (Auto) 75.4 H (50-75) % Lymph % (Auto) 17.0 L (25-40) % [place] % (Auto) 5.6 (3-14) % Eos % (Auto) 1.0 L (2-4) % Baso % (Auto) 1.0 (0-2) % Neut # (Auto) 8400 H (3433-1900) /uL Lymph # (Auto) 1900 (2256-9897) /uL [place] # (Auto) 600 (0-900) /uL Eos # (Auto) 100 (0-450) /uL Baso # (Auto) 100 (0-100) /uL ESR 3 (0-20) MM/HR PT 12.0 (10.1-12.7) SECONDS INR 1.1 (0.9-1.3) APTT 31 (26.4-36.2) SECONDS D-Dimer < 200 (<230) ng/mL Sodium 136 L (137-145) mmol/L Potassium 3.9 (3.4-5.1) mmol/L Chloride 105 (98-107) mmol/L Carbon Dioxide 24 (22-32) mmol/L BUN 11 (7-17) mg/dL Creatinine 0.65 (0.52-1.04) mg/dL Estimated GFR > 60.0 (>60) mL/min BUN/Creatinine Ratio 16.9 (6-22) Glucose 97 (70-100) mg/dL Calcium 9.7 (8.4-10.2) mg/dL Total Bilirubin 0.8 (0.2-1.3) mg/dL AST 30 (14-36) IU/L ALT 34 (<35) IU/L Alkaline Phosphatase 60 (38-126) U/L Total Creatine Kinase 74 (30-135) U/L CK-MB (CK-2) TNP CK-MB (CK-2) Rel Index TNP Troponin I < 0.012 (0.01-0.034) ng/mL C-Reactive Protein 0.5 (<1.0) mg/dL Total Protein 7.4 (6.3-8.2) g/dL Albumin 4.5 (3.5-5.0) g/dL Globulin 2.9 (1.7-4.1) g/dL Albumin/Globulin Ratio 1.6 (1.0-2.8) Lipase 86 (23-300) U/L Imaging Data Chest x-ray: Radiologist's Impression: [address] [id number] ReportSigned Patient: Sarah Kumar R#: [id number]: 1995Acct:[id number]/Sex: 25 / FDate of Service: 12/13/20Loc: EDAccession Number: [id number] Procedure: XR chest 1V Ordering Provider: Gene Carrillo D.O. PROCEDURE: XR CHEST 1V INDICATIONS: chest pain TECHNIQUE: One view of the chest was acquired. COMPARISON: None. FINDINGS: Surgical changes and devices: None. Lungs and pleura: Lungs are clear. No pleural effusions or pneumothorax. Mediastinum: Mediastinal contours appear normal. Heart size is normal. Bones and chest wall: No suspicious bony lesions. Overlying soft tissues appear unremarkable. IMPRESSION: No acute cardiopulmonary process. Dictated by: Heladio Helton M.D. on 12/13/2020 at 13:27 Approved by: Heladio Helton M.D. on 12/13/2020 at 13:34 ECG Data Attestation: I personally reviewed and interpreted this ECG as follows: Interpretation: EKG is normal sinus rhythm rate [89] and free of any signs of ischemia or ectopy. No ST segmental elevation or depression. No T wave inversions MDM Narrative Medical decision making narrative: Multiple causes of chest pain considered including AR, PE, pneumothorax, pneumonia, aortic dissection, and pleurisy. Patient reports no radiation, no diaphoresis, no provocation with exertion, and no vomiting, troponin is negative, EKG is nonischemic, see me a thought unlikely. Pulmonary embolism considered given pleuritic nature of her pain, however thought unlikely given negative D-dimer, CT a not indicated. Pericarditis considered given reproducible, sharp and pleuritic nature of her discomfort, however there is no positional element, nor classic findings on EKG. Patient's symptoms improved over duration of stay with above-stated therapies. Findings and discharge diagnosis discussed with patient/family followed by verbalization of understanding Return precautions discussed with patient/family whom verbalize understanding. Discharge Plan Departure Patient Disposition: Home Clinical Impression: Acute chest wall pain Instructions: DI for Atypical Chest Pain Activity Restrictions/Additional Instructions: *You have been diagnosed with [atypical chest pain. Your story, physical exam, labs, EKG and imaging are very reassuring] *What to do: *Please continue to take your regular medications as directed. [ x] New medication prescriptions sent to your pharmacy: [[facility]] [ ] New medication written as a paper prescription [ ] No new medications given *Please follow up with your primary care provider in 2-3 days, call for an appointment. Let them know you were seen in the Emergency Department and that we ask that you be seen in follow up. We will electronically transmit a record of today's note if your PCP is in our system *If you do not have a primary care provider please contact the [facility] Resource line at [phone]. They will ask some questions about your medical history and help get you set up with a doctor in the community. *Return to Emergency Department if you should have any new, worsening or concerning symptoms, such as [fever greater than 101 F, shaking chills, worsening pain, persistent vomiting or other bothersome symptoms] Prescriptions: New ketorolac 10 mg tablet 10 mg PO Q6H PRN (Reason: pain) Qty: 14 RF: 0 No Action meloxicam 15 mg tablet 15 mg PO DAILY Qty: 90 RF: 3 sertraline 25 mg tablet 25 mg PO DAILY 30 Days Qty: 30 RF: 2 lidocaine HCl [Lidocaine Viscous] 2 % solution 15 ml PO Q4-6H PRN (Reason: ST) Qty: 150 RF: 0 albuterol sulfate 90 mcg/actuation HFA aerosol inhaler 2 inhalation INHALATION Q4-6H PRN (Reason: cough/asthma) Qty: 8.5 RF: 0 esomeprazole magnesium 40 mg capsule,delayed release(DR/EC) 40 mg PO DAILY Qty: 14 RF: 0 Referrals: Lucas Pastor ARNP [Primary Care Provider] -
[2020-12-13 13:08] VITALS: PULSE 86; O2SAT 97
[2020-12-13 13:10] VITALS: BP 115/80; PULSE 86; RESP 22; O2SAT 96
[2020-12-13 13:15] LABS: Add Manual Diff / Slide Review NO; Basophils Absolute Auto 100 /uL (0-100); Eosinophils Absolute Auto 100 /uL (0-450); Hemoglobin 14.3 g/dL (12.0-16.0); Lymphocytes Absolute Auto 1900 /uL (1100-4500); Mean Corpuscular HGB Conc 34.9 % (30-36); Mean Corpuscular Volume 88.9 fL (80-100); Monocytes Absolute Auto 600 /uL (0-900); Monocytes Percent Auto 5.6 % (3-14); Neutrophils Absolute Auto 8400 /uL (1500-7000); Neutrophils Percent Auto 75.4 % (50-75); Platelet Count 228 X10^3/uL (150-400); Red Blood Cell Count 4.62 X10^6/uL (4.0-5.2); White Blood Cell Count 11.1 X10^3/uL (4.5-11.0)
[2020-12-13] MEDS: KETOROLAC 30 MG/ML VIAL 15 MG IV (13:17)
[2020-12-13 13:22] LABS: INR 1.1 (0.9-1.3)
[2020-12-13 13:25] LABS: PTT Partial Thromboplastin Tim 31 SECONDS (26.4-36.2)
[2020-12-13 13:28] LABS: D Dimer < 200 ng/mL (<230)
[2020-12-13 13:30] VITALS: PULSE 80; RESP 24; O2SAT 96
[2020-12-13 13:30] LABS: Alanine Aminotransferase 34 IU/L (<35); Albumin 4.5 g/dL (3.5-5.0); Albumin Globulin Ratio 1.6 (1.0-2.8); Alkaline Phosphatase 60 U/L (38-126); Aspartate Aminotransferase 30 IU/L (14-36); BUN Creatinine Ratio 16.9 (6-22); Bilirubin Total 0.8 mg/dL (0.2-1.3); Blood Urea Nitrogen 11 mg/dL (7-17); C-Reactive Protein Quant 0.5 mg/dL (<1.0); Calcium 9.7 mg/dL (8.4-10.2); Carbon Dioxide 24 mmol/L (22-32); Chloride 105 mmol/L (98-107); Creatine Kinase 74 U/L (30-135); Estimated Glomerular Filt Rate > 60.0 mL/min (>60); Globulin 2.9 g/dL (1.7-4.1); Glucose 97 mg/dL (70-100); HEMOLYSIS < 15 (0-50); Lipase 86 U/L (23-300); Potassium 3.9 mmol/L (3.4-5.1); Sodium 136 mmol/L (137-145); Total Protein 7.4 g/dL (6.3-8.2)
[2020-12-13 13:31] VITALS: BP 121/85; PULSE 79; RESP 25; O2SAT 95
[2020-12-13 13:39] LABS: Troponin I < 0.012 ng/mL (0.01-0.034)
[2020-12-13 13:43] LABS: Erythrocyte Sedimentation Rate 3 MM/HR (0-20)
[2020-12-13 14:28] VITALS: BP 111/71; PULSE 79; RESP 22; O2SAT 100
== END 2020-12-13 14:28 | disposition home or self-care (01) ==
PROVIDERS: Emergency Provider Emergency Medicine; PCP Registered Nurse
DX: R07.89 Other chest pain (principal)
CPT/HCPCS: 36415; 71045; 80053; 82550; 83690; 84484; 85025; 85379; 85610; 85651; 85730; 86140; 93005; 93010; 96374; 99284; J1885

== ENCOUNTER → 2021-01-03 14:29 | Outpatient (CLI) | payer OTHER, MEDICAID, SELFPAY ==
[2021-01-03 15:42] LABS: Free T4, Direct Thyroxine 0.87 ng/dL (0.78-2.19)
[2021-01-03 15:56] LABS: Thyroid Stimulating Hormone 1.71 uIU/mL (0.47-4.68)
== END ==
PROVIDERS: PCP Registered Nurse; Referring Provider Registered Nurse; Visit Provider Registered Nurse
DX: R63.5 Abnormal weight gain (principal); Z83.49 Family history of other endocrine, nutritional and metabolic diseases
CPT/HCPCS: 36415; 84439; 84443

== ENCOUNTER 2021-03-10 09:39 | Emergency (ER) | payer OTHER, SELFPAY ==
--- NOTE | 2021-03-10 09:49 | ED.HEATRA ---
HPI - Head Injury General Chief complaint: Head Injury Stated complaint: hit head at work/sway bar fell on her Time Seen by Provider: 03/10/21 09:42 History of Present Illness HPI Narrative: 25-year-old female daily smoker with noncontributory medical history presents with a chief complaint of a work related head injury just prior to arrival. She states that she was struck in the back of her head by this way bar from a recreational vehicle. She does not remember the event and does not know if she suffered a loss of consciousness. She feels a bit groggy and slow to respond. She denies any vomiting but has had nausea. She does not take any blood thinners. She denies any other injury. She has no numbness, tingling or weakness. Related Data Previous Rx's Medication Instructions Recorded albuterol sulfate 90 mcg/actuation 2 inhalation INHALATION Q4-6H PRN 10/21/18 aerosol inhaler #8.5 gram sertraline 50 mg tablet 50 mg PO DAILY 90 Days #90 tab 12/22/20 ondansetron 4 mg disintegrating 4 mg PO TID-QID PRN #10 tab 03/10/21 tablet Allergies Allergy/AdvReac Type Severity Reaction Status Date / Time lavender (Lavandula Allergy Severe Swelling Verified 12/13/20 12:48 angustifolia) of Lip/Tongue/Throat amoxicillin Allergy Verified 12/13/20 12:48 aspirin Allergy Verified 12/13/20 12:48 diphenhydramine Allergy Verified 12/13/20 12:48 [From Benadryl] Penicillins Allergy Verified 12/13/20 12:48 sumatriptan [From Imitrex] Allergy Verified 12/13/20 12:48 Review of Systems Review of Systems Narrative: GENERAL: Denies chills, fatigue, malaise, fever, sweats. HEENT: See HPI RESPIRATORY: Denies dyspnea, cough, wheezing, hemoptysis, sputum. CARDIOVASCULAR: Denies chest pain, palpitations, orthopnea, edema, GASTROINTESTINAL: Denies nausea, vomiting, abdominal pain, diarrhea, constipation, melena. : Denies dysuria, frequency, incontinence, hematuria, urinary retention. MUSCULOSKELETAL: denies weakness, joint pain, or bony pain SKIN: Denies rash, skin lesions, or other NEUROLOGIC: See HPI PSYCHIATRIC: No concerning psychosocial issues. 12 point review of systems is negative except for those stated above Patient History Medical History Anxiety with depression (~2016) Asthma (~2016) Chlamydia (~2013) Chronic back pain (~2017) History of recurrent ear infection (~2017) IBS (irritable bowel syndrome) (~2018) Migraines (~2016) Mild asthma No pertinent family history PTSD (post-traumatic stress disorder) (~2016) Rash Right wrist pain Tinnitus (~2017) Weight gain Surgical History No pertinent past surgical history Social History Smoking Status: Current every day smoker Smoking Status: Current every day smoker alcohol intake frequency: holidays/special occasions only Substance Use Type: does not use Exam Narrative Exam Narrative: GENERAL: [25] year old patient appears stated age. Well-developed patient, in mild distress. Complaining of a headache HEAD: Tender to palpate behind right ear, minimal swelling, no evidence of depressed skull fracture, laceration or abrasion.. EYES: Pupils equal round and reactive. Extraocular motions intact. No scleral icterus. No injection or drainage. ENT: Nose without bleeding, purulent drainage. Throat without erythema, tonsillar hypertrophy or exudate. Airway patent. NECK: Trachea midline. Non tender CARDIOVASCULAR: Regular rate and rhythm without murmurs, gallops, or rubs. RESPIRATORY: Clear to auscultation. Breath sounds equal bilaterally. No wheezes, rales, or rhonchi. GASTROINTESTINAL: Abdomen soft, non-tender, nondistended. EXTREMITIES: No edema or joint tenderness. BACK: Nontender without deformity or crepitance. No flank tenderness. NEURO: AOx3. SKIN: No rash or erythema of visible areas Initial Vital Signs Initial Vital Signs: Vital Signs Temperature 98.8 F 03/10/21 09:53 Pulse Rate 88 03/10/21 09:53 Respiratory Rate 12 03/10/21 09:53 Blood Pressure 125/79 03/10/21 09:53 Pulse Oximetry 99 03/10/21 09:53 Course Orders Ordered: ED Orders 03/10/21 09:55 CT head/brain wo con Stat Vital Signs Vital signs: Vital Signs - 8 hr 03/10/21 09:53 08/06/21 10:39 Temperature 98.8 F Pulse Rate 88 76 Respiratory Rate 12 21 Blood Pressure 125/79 104/71 Pulse Oximetry 99 99 MDM - Head Injury Imaging Data CT scan - head: Radiologist's Impression: Sarah Kumar H 25 F [address] [id number] Scan ReportSigned Patient: Sarah Kumar R#: [id number]: 1995Acct:[id number]/Sex: 25 / FDate of Service: 03/10/21Loc: EDAccession Number: [id number] Procedure: CT head/brain wo con Ordering Provider: Gene Carrillo D.O. PROCEDURE: CT HEAD/BRAIN WO CON INDICATIONS: head injury, possible LOC, nausea TECHNIQUE: Noncontrast 4.5 mm thick angled axial sections acquired from the foramen magnum to the vertex, with coronal and sagittal reformats. For radiation dose reduction, the following was used: automated exposure control, adjustment of mA and/or kV according to patient size. COMPARISON: None. FINDINGS: Image quality: Excellent. CSF spaces: Basal cisterns are patent. No extra-axial fluid collections. Ventricles are normal in size and shape. Brain: No midline shift. No intracranial masses or hemorrhage. Kuhn-white matter interface is normal. Skull and face: Calvarium and visualized facial bones are intact, without suspicious lesions. Sinuses: Visualized sinuses and mastoids are clear. IMPRESSION: No trauma found. Dictated by: Renny Mera M.D. on 03/10/2021 at 10:10 Approved by: Renny Mera M.D. on 03/10/2021 at 10:10 Discharge Plan Departure Patient Disposition: Home Clinical Impression: Concussion Qualifiers: Encounter type: initial encounter Loss of consciousness presence/duration: without LOC Qualified Code(s): S06.0X0A - Concussion without loss of consciousness, initial encounter Instructions: Concussion Activity Restrictions/Additional Instructions: *You have been diagnosed with [head injury and concussion. The CT scan demonstrates no significant injury] *What to do: *Please continue to take your regular medications as directed. [x ] New medication prescriptions sent to your pharmacy: [[facility] in [place] ] [ ] New medication written as a paper prescription [ ] No new medications given *Please follow up with your primary care provider in 2-3 days, call for an appointment. Let them know you were seen in the Emergency Department and that we ask that you be seen in follow up. We will electronically transmit a record of today's note if your PCP is in our system *If you do not have a primary care provider please contact the [facility] Resource line at [phone]. They will ask some questions about your medical history and help get you set up with a doctor in the community. *Return to Emergency Department if you should have any new, worsening or concerning symptoms, such as [fever greater than 101 F, shaking chills, worsening pain, persistent vomiting or other bothersome symptoms] Prescriptions: New ondansetron 4 mg tablet,disintegrating 4 mg PO TID-QID PRN (Reason: nausea and vomiting) Qty: 10 RF: 0 No Action sertraline 50 mg tablet 50 mg PO DAILY 90 Days Qty: 90 RF: 2 albuterol sulfate 90 mcg/actuation HFA aerosol inhaler 2 inhalation INHALATION Q4-6H PRN (Reason: cough/asthma) Qty: 8.5 RF: 0 Referrals: Lucas Pastor ARNP [Primary Care Provider] - Stand Alone Forms: Work Release Note
[2021-03-10 09:53] VITALS: BP 125/79; PULSE 88; RESP 12; TEMP 37.1; O2SAT 99; BMI 31.1
--- NOTE | 2021-03-10 09:55 | DI.CT.S_ITS ---
PROCEDURE: CT HEAD/BRAIN WO CON INDICATIONS: head injury, possible LOC, nausea TECHNIQUE: Noncontrast 4.5 mm thick angled axial sections acquired from the foramen magnum to the vertex, with coronal and sagittal reformats. For radiation dose reduction, the following was used: automated exposure control, adjustment of mA and/or kV according to patient size. COMPARISON: None. FINDINGS: Image quality: Excellent. CSF spaces: Basal cisterns are patent. No extra-axial fluid collections. Ventricles are normal in size and shape. Brain: No midline shift. No intracranial masses or hemorrhage. Kuhn-white matter interface is normal. Skull and face: Calvarium and visualized facial bones are intact, without suspicious lesions. Sinuses: Visualized sinuses and mastoids are clear. IMPRESSION: No trauma found. Dictated by: Renny Mera M.D. on 03/10/2021 at 10:10 Approved by: Renny Mera M.D. on 03/10/2021 at 10:10
[2021-03-10 10:39] VITALS: BP 104/71; PULSE 76; RESP 21; O2SAT 99
[2021-03-10 10:56] VITALS: BP 104/71; PULSE 76; RESP 21; O2SAT 99
== END 2021-03-10 10:56 | disposition home or self-care (01) ==
PROVIDERS: Emergency Provider Emergency Medicine; PCP Registered Nurse
DX: S06.0X0A Concussion without loss of consciousness, initial encounter (principal); R51.9 Headache, unspecified; R11.0 Nausea; W22.8XXA Striking against or struck by other objects, initial encounter; Y99.0 Civilian activity done for income or pay
CPT/HCPCS: 70450; 99283; 99284

== ENCOUNTER → 2021-05-18 10:43 | Outpatient (CLI) | payer OTHER, MEDICAID, SELFPAY ==
[2021-05-18 11:34] LABS: COVID19 -Nasal RAPID Negative (Negative)
== END ==
PROVIDERS: PCP Registered Nurse; Referring Provider Nurse Practitioner; Visit Provider Nurse Practitioner
DX: Z20.822 Contact with and (suspected) exposure to COVID-19 (principal); J02.9 Acute pharyngitis, unspecified; R05.9 Cough, unspecified
CPT/HCPCS: 87635

== ENCOUNTER 2021-06-11 16:41 | Emergency (ER) | payer OTHER, MEDICAID, SELFPAY ==
[2021-06-11] VITALS (9 sets, daily range): BP systolic 113–135; BP diastolic 69–87; PULSE 65–78; RESP 22; TEMP 36.4; O2SAT 91–98; BMI 31.1
--- NOTE | 2021-06-11 18:25 | ED_ITS ---
HPI - Headache General Chief Complaint: Headache Stated Complaint: MIGRAINE MAKING IT HARD TO BREATH Time Seen by Provider: 06/11/21 18:25 Mode of arrival: Family Vehicle Limitations: no limitations History of Present Illness HPI Narrative: 25-year-old woman with a history of recurrent migraine. Has had significant adverse reaction with Imitrex. Typically will use Tylenol as her only medication and finds that she tends to use medications more days than not. She is unaware of triggers and was also unaware of the concept of rebound he adache. She notes that today she developed a headache early in the morning Tylenol early in the morning and then repeated around noon was not helping and by this afternoon the headache was severe enough that she came to the emergency department for additional help. She describes some mild nausea but no vomiting. No paresthesias or over weakness. No recent fevers, cough, chills, abdominal pain, diarrhea, palpitations or chest pain. Related Data Previous Rx's Medication Instructions Recorded albuterol sulfate 90 mcg/actuation 2 inhalation INHALATION Q4-6H PRN 10/21/18 aerosol inhaler #8.5 gram sertraline 50 mg tablet 50 mg PO DAILY 90 Days #90 tab 12/22/20 ondansetron 4 mg disintegrating 4 mg PO TID-QID PRN #10 tab 03/10/21 tablet rizatriptan 10 mg tablet See Rx Instructions PO .COMPLEX 03/31/21 #10 tab Allergies Allergy/AdvReac Type Severity Reaction Status Date / Time lavender (Lavandula Allergy Severe Swelling Verified 06/11/21 17:10 angustifolia) of Lip/Tongue/Throat amoxicillin Allergy Verified 06/11/21 17:10 aspirin Allergy Verified 06/11/21 17:10 diphenhydramine Allergy Verified 06/11/21 17:10 [From Benadryl] Penicillins Allergy Verified 06/11/21 17:10 sumatriptan [From Imitrex] Allergy Verified 06/11/21 17:10 Review of Systems Review of Systems Narrative: Remainder of complete review of systems is otherwise unremarkable ex cept for that included in the HPI. Patient History Medical History Anxiety with depression (~2015) Asthma (~2016) Cervical somatic dysfunction Chlamydia (~2012) Chronic back pain (~2017) Cranial somatic dysfunction History of recurrent ear infection (~2017) IBS (irritable bowel syndrome) (~2018) Migraines (~2016) Mild asthma No pertinent family history Post-concussion headache Postconcussion syndrome PTSD (post-traumatic stress disorder) (~2016) Rash Right wrist pain Thoracic region somatic dysfunction Tinnitus (~2017) Weight gain Surgical History No pertinent past surgical history Social History Smoking Status: Current every day smoker Smoking Status: Current every day smoker tobacco type: cigarettes alcohol intake frequency: 0-2 drinks per day Substance Use Type: marijuana Exam Narrative Exam Narrative: General: Healthy appearing, in no acute distress. Able to give a complete and coherent history. Well-nourished well-developed HEENT: Moist mucous membranes, normal sclera with reactive pupils, Neck: supple Respiratory: Lungs are clear to auscultation, no wheezing no rales no rhonchi. Full and symmetrical air movement Cardiac: Regular rate and rhythm no murmurs no bruits Abdomen: Soft, nontender, good bowel tones, no flank pain Skin: Warm and dry, no rashes Neurologic: Grossly neurologically intact with no obvious asymmetries or abno rmalities Extremities: No trauma, well perfused Psych: Cooperative, appropriate insight and affect Initial Vital Signs Initial Vital Signs: Vital Signs Temperature 97.6 F 06/11/21 17:06 Pulse Rate 78 06/11/21 17:06 Respiratory Rate 22 06/11/21 17:06 Blood Pressure 135/87 06/11/21 17:06 Pulse Oximetry 98 06/11/21 17:06 Course Orders Ordered: ED Orders 06/11/21 18:40 COVID19 -Nasal swab/Pre-Proc Stat Complete Blood Count AUTO DIFF Stat Comprehensive Metabolic Panel Stat Discontinued Medications Sodium Chloride (Normal Saline 0.9%) 1,000 mls @ 1,000 mls/hr IV BOLUS ONE Stop: 06/11/21 19:24 Last Infusion: 06/11/21 19:55 Dose: 0 mls/hr Documented by: Admin: 06/11/21 18:50 Dose: 1,000 mls/hr Documented by: JOCELYNE Ketorolac Tromethamine (Ketorolac 30 Mg/Ml Vial) 15 mg IV NOW ONE Stop: 06/11/21 18:28 Last Admin: 06/11/21 18:50 Dose: 15 mg Documented by: JOCELYNE Prochlorperazine (Prochlorperazine 10 Mg/2 Ml Vial) 10 mg IV NOW ONE Stop: 06/11/21 18:26 Last Admin: 06/11/21 18:50 Dose: 10 mg Documented by: JOCELYNE Vital Signs Vital signs: Vital Signs - 8 hr 06/11/21 17:06 06/11/21 17:54 06/11/21 17:55 Temperature 97.6 F Pulse Rate 78 65 Respiratory Rate 22 Blood Pressure 135/87 113/69 Pulse Oximetry 98 98 06/11/21 18:00 06/11/21 18:30 06/11/21 19:15 Temperature Pulse Rate 65 66 65 Respiratory Rate Blood Pressure 119/75 Pulse Oximetry 91 92 96 06/11/21 19:16 06/11/21 19:18 06/11/21 19:30 Temperature Pulse Rate 76 70 Respiratory Rate Blood Pressure 119/75 Pulse Oximetry 96 95 98 MDM - Headache Lab Data Result diagrams: 06/11/21 18:40 06/11/21 18:40 Labs: Lab Results 06/11/21 06/11/21 06/11/21 Range/Units 18:40 18:40 18:40 WBC 10.4 (4.5-11.0) X10^3/uL RBC 4.90 (4.0-5.2) X10^6/uL Hgb 15.3 (12.0-16.0) g/dL Hct 43.7 (36-46) % MCV 89.1 (80-100) fL MCH 31.2 (26-34) PG MCHC 35.0 (30-36) % RDW 12.6 (11.6-14.8) % Plt Count 256 (150-400) X10^3/uL Neut % (Auto) 74.0 (50-75) % Lymph % (Auto) 17.9 L (25-40) % Saline % (Auto) 5.1 (3-14) % Eos % (Auto) 2.4 (2-4) % Baso % (Auto) 0.6 (0-2) % Neut # (Auto) 7700 H (0345-3092) /uL Lymph # (Auto) 1900 (9129-5355) /uL Saline # (Auto) 500 (0-900) /uL Eos # (Auto) 300 (0-450) /uL Baso # (Auto) 100 (0-100) /uL Sodium 139 (137-145) mmol/L Potassium 3.9 (3.4-5.1) mmol/L Chloride 104 (98-107) mmol/L Carbon Dioxide 27 (22-32) mmol/L BUN 13 (7-17) mg/dL Creatinine 0.66 (0.52-1.04) mg/dL Estimated GFR > 60.0 (>60) mL/min BUN/Creatinine Ratio 19.7 (6-22) Glucose 111 H (70-100) mg/dL Calcium 9.9 (8.4-10.2) mg/dL Total Bilirubin 0.7 (0.2-1.3) mg/dL AST 29 (14-36) IU/L ALT 43 H (<35) IU/L Alkaline Phosphatase 55 (38-126) U/L Total Protein 7.6 (6.3-8.2) g/dL Albumin 4.7 (3.5-5.0) g/dL Globulin 2.9 (1.7-4.1) g/dL Albumin/Globulin Ratio 1.6 (1.0-2.8) SARS-CoV-2 (PCR) Negative (Negative) MDM Narrative Medical decision making narrative: 25-year-old woman presents with her usual migraine that responded nicely to fluid, Toradol and Compazine. Had a long discussion regarding common triggers, all of which are acute issues for her. She was very open to suggestions regarding chief consistent sleep patterns, weaning off in getting rid of caffeine completely, adding additional water and avoiding sugar. She will follow-up with her primary care physician. At this point there is no evidence of alternative diagnoses such as stroke, infectious etiology, surgical abdomen or other diagnosis that would require hospitalization. Discharge Plan Departure Patient Disposition: Home Clinical Impression: Migraine Qualifiers: Migraine type: unspecified Status migrainosus presence: without status migrainosus Intractability: not intractable Qualified Code(s): G43.909 - Migraine, unspecified, not intractable, without status migrainosus Instructions: DI for Migraine Activity Restrictions/Additional Instructions: Thank you for coming in today You headache went away with a simple combination of fluids, nausea medicine(Compazine) and Toradol which is similar to ibuprofen. We had a nice discussion about migraine headaches and I would encourage you to do a bit of research on triggers for migraine headaches so that you can make some simple life changes to avoid some any headaches Common triggers include: Changes to sleep patterns Sugar Caffeine Alcohol Not drinking enough water Using gqrb-[id number] medications can be helpful for the occasional headache however you do want to be aware of how much she were taking and not end up taking multiple doses every day otherwise your body simply gets use to the pain medication and it is no longer helping the headaches Using 400 mg of ibuprofen (2 qatv-wif-qddvwcz pills) and 1 Tylenol every 6 hours can be very helpful in controlling pain. For the next couple of weeks as you are weaning down caffeine, you may find that Excedrin is helpful for you in treating her headaches. Excedrin has some caffeine in it In switching to tea, make sure that it does not have sweeteners. There are tons of options to explore. Using the Mirena is going to be the best option for control for you. Often migraines can be hormonally triggered and Mirena helps mitigate that I am glad you are feeling better, I hope you find some value in the research that your going to do about migraines and are able to identify your triggers. Prescriptions: No Action sertraline 50 mg tablet 50 mg PO DAILY 90 Days Qty: 90 RF: 2 rizatriptan 10 mg tablet See Rx Instructions PO .COMPLEX Qty: 10 RF: 5 albuterol sulfate 90 mcg/actuation HFA aerosol inhaler 2 inhalation INHALATION Q4-6H PRN (Reason: cough/asthma) Qty: 8.5 RF: 0 ondansetron 4 mg tablet,disintegrating 4 mg PO TID-QID PRN (Reason: nausea and vomiting) Qty: 10 RF: 0 Referrals: Lucas Pastor ARNP [Primary Care Provider] -
[2021-06-11 18:50] LABS: Add Manual Diff / Slide Review NO; Basophils Absolute Auto 100 /uL (0-100); Basophils Percent Auto 0.6 % (0-2); Eosinophils Absolute Auto 300 /uL (0-450); Eosinophils Percent Auto 2.4 % (2-4); Hematocrit 43.7 % (36-46); Hemoglobin 15.3 g/dL (12.0-16.0); Lymphocytes Absolute Auto 1900 /uL (1100-4500); Lymphocytes Percent Auto 17.9 % (25-40); Mean Corpuscular Hemoglobin 31.2 PG (26-34); Mean Corpuscular Volume 89.1 fL (80-100); Monocytes Absolute Auto 500 /uL (0-900); Monocytes Percent Auto 5.1 % (3-14); Neutrophils Absolute Auto 7700 /uL (1500-7000); Platelet Count 256 X10^3/uL (150-400); Red Cell Distribution Width 12.6 % (11.6-14.8); White Blood Cell Count 10.4 X10^3/uL (4.5-11.0)
[2021-06-11] MEDS: SODIUM CHLORIDE 0.9% 1,000 ML 1000 ML IV (18:50)
[2021-06-11] MEDS: PROCHLORPERAZINE 10 MG/2 ML VIAL IV (18:50)
[2021-06-11] MEDS: KETOROLAC 30 MG/ML VIAL 15 MG IV (18:50)
[2021-06-11 19:03] LABS: Alanine Aminotransferase 43 IU/L (<35); Albumin 4.7 g/dL (3.5-5.0); Albumin Globulin Ratio 1.6 (1.0-2.8); Alkaline Phosphatase 55 U/L (38-126); Aspartate Aminotransferase 29 IU/L (14-36); BUN Creatinine Ratio 19.7 (6-22); Bilirubin Total 0.7 mg/dL (0.2-1.3); Blood Urea Nitrogen 13 mg/dL (7-17); Calcium 9.9 mg/dL (8.4-10.2); Carbon Dioxide 27 mmol/L (22-32); Chloride 104 mmol/L (98-107); Estimated Glomerular Filt Rate > 60.0 mL/min (>60); Globulin 2.9 g/dL (1.7-4.1); Glucose 111 mg/dL (70-100); HEMOLYSIS < 15 (0-50); Potassium 3.9 mmol/L (3.4-5.1); Sodium 139 mmol/L (137-145); Total Protein 7.6 g/dL (6.3-8.2)
[2021-06-11 19:06] LABS: COVID19 -Nasal RAPID Negative (Negative)
== END 2021-06-11 20:23 | disposition home or self-care (01) ==
PROVIDERS: Emergency Provider Emergency Medicine; PCP Registered Nurse
DX: G43.909 Migraine, unspecified, not intractable, without status migrainosus (principal); Z20.822 Contact with and (suspected) exposure to COVID-19
CPT/HCPCS: 36415; 80053; 85025; 87635; 96361; 96374; 96375; 99284; C9803; J0780; J1885

== ENCOUNTER 2021-07-18 12:49 | Emergency (ER) | payer OTHER, MEDICAID, SELFPAY ==
[2021-07-18 13:06] VITALS: BP 139/89; PULSE 89; RESP 14; TEMP 36.8; O2SAT 98; BMI 31.1
[2021-07-18 13:38] LABS: Add Manual Diff / Slide Review NO; Basophils Absolute Auto 100 /uL (0-100); Eosinophils Absolute Auto 400 /uL (0-450); Eosinophils Percent Auto 6.7 % (2-4); Hematocrit 41.5 % (36-46); Hemoglobin 14.5 g/dL (12.0-16.0); Lymphocytes Absolute Auto 2000 /uL (1100-4500); Lymphocytes Percent Auto 32.8 % (25-40); Mean Corpuscular Volume 88.8 fL (80-100); Monocytes Absolute Auto 500 /uL (0-900); Neutrophils Absolute Auto 3100 /uL (1500-7000); Neutrophils Percent Auto 50.5 % (50-75); Platelet Count 267 X10^3/uL (150-400); Red Blood Cell Count 4.68 X10^6/uL (4.0-5.2); Red Cell Distribution Width 12.5 % (11.6-14.8); White Blood Cell Count 6.1 X10^3/uL (4.5-11.0)
[2021-07-18 13:50] LABS: Alanine Aminotransferase 47 IU/L (<35); Albumin 4.8 g/dL (3.5-5.0); Albumin Globulin Ratio 1.7 (1.0-2.8); Alkaline Phosphatase 53 U/L (38-126); Aspartate Aminotransferase 32 IU/L (14-36); BUN Creatinine Ratio 15.4 (6-22); Bilirubin Total 0.7 mg/dL (0.2-1.3); Blood Urea Nitrogen 10 mg/dL (7-17); Calcium 9.6 mg/dL (8.4-10.2); Carbon Dioxide 27 mmol/L (22-32); Chloride 105 mmol/L (98-107); Estimated Glomerular Filt Rate > 60.0 mL/min (>60); Globulin 2.9 g/dL (1.7-4.1); Glucose 95 mg/dL (70-100); HEMOLYSIS < 15 (0-50); Sodium 140 mmol/L (137-145); Total Protein 7.7 g/dL (6.3-8.2)
--- NOTE | 2021-07-18 13:53 | DI.RAD.S_ITS ---
PROCEDURE: XR CHEST 1V INDICATIONS: Cough TECHNIQUE: One view of the chest was acquired. COMPARISON: [facility], CR, XR CHEST 1V, 12/13/2020, 12:50. FINDINGS: Surgical changes and devices: None. Lungs and pleura: No consolidation demonstrated. No pleural effusions or pneumothorax. Mediastinum: Mediastinal contours appear normal. Heart size is normal. Bones and chest wall: No suspicious bony lesions. Overlying soft tissues appear unremarkable. IMPRESSION: No acute cardiopulmonary abnormality identified. Dictated by: Sesar Harrington M.D. on 07/18/2021 at 14:17 Approved by: Sesar Harrington M.D. on 07/18/2021 at 14:18
[2021-07-18] MEDS: PANTOPRAZOLE 40 MG VIAL IV (15:19)
[2021-07-18] MEDS: ONDANSETRON 4 MG/2 ML INJ IV (15:19)
[2021-07-18 15:31] LABS: D Dimer < 200 ng/mL (<230)
[2021-07-18 15:35] LABS: Amylase 63 U/L (30-110)
[2021-07-18] MEDS: MAG HYDROX/ALUMINUM/SIMETH SUS 20 ML, LIDOCAINE VISCOUS 2% 15 ML PO (15:55)
--- NOTE | 2021-07-18 16:07 | ED_ITS ---
HPI - GI Bleed <MADDI Mckay - Last Filed: 07/18/21 17:36> General Chief complaint: GI Bleed Stated complaint: coughing up blood Time Seen by Provider: 07/18/21 13:17 Source: patient Mode of arrival: Ambulatory Limitations: no limitations History of Present Illness HPI Narrative: The patient is a 25-year-old female current everyday smoker presents with a chief complaint of coughing up blood last night. She states that she has had issues with acid reflux over the past few weeks, last night coughed and noticed that she coughed up blood, phlegm and green phlegm. She denies any fevers muscle aches or chills. She denies any known COVID exposures. She does note that she is not vaccinated. She notes that she has been using antacid medication because she has had epigastric pain recently. She notes that she has history of a scope, states that she drinks coffee every day. Related Data Previous Rx's Medication Instructions Recorded albuterol sulfate 90 mcg/actuation 2 inhalation INHALATION Q4-6H PRN 10/21/18 aerosol inhaler #8.5 gram sertraline 50 mg tablet 50 mg PO DAILY 90 Days #90 tab 12/22/20 ondansetron 4 mg disintegrating 4 mg PO TID-QID PRN #10 tab 03/10/21 tablet rizatriptan 10 mg tablet See Rx Instructions PO .COMPLEX 03/31/21 #10 tab ondansetron 4 mg disintegrating 4 mg PO Q6H PRN #20 tab 07/18/21 tablet pantoprazole 40 mg tablet,delayed 40 mg PO DAILY #30 tab 07/18/21 release (Protonix) Allergies Allergy/AdvReac Type Severity Reaction Status Date / Time lavender (Lavandula Allergy Severe Swelling Verified 07/18/21 13:08 angustifolia) of Lip/Tongue/Throat amoxicillin Allergy Verified 07/18/21 13:08 aspirin Allergy Verified 07/18/21 13:08 diphenhydramine Allergy Verified 07/18/21 13:08 [From Benadryl] Penicillins Allergy Verified 07/18/21 13:08 sumatriptan [From Imitrex] Allergy Verified 07/18/21 13:08 Review of Systems <MADDI Mckay - Last Filed: 07/18/21 17:36> Review of Systems Narrative: GENERAL: Denies chills, fatigue, malaise, fever, sweats. HEENT: Denies sinus pain, ear pain, sore throat, difficulty swallowing, dizziness. RESPIRATORY: See HPI CARDIOVASCULAR: Denies chest pain, palpitations, orthopnea, edema, GASTROINTESTINAL: See HPI : Denies dysuria, frequency, incontinence, hematuria, urinary retention. MUSCULOSKELETAL: denies weakness, joint pain, or bony pain SKIN: Denies rash, skin lesions, or other NEUROLOGIC: Denies weakness, headache, numbness, change in speech, confusion, seizures, incoordination. PSYCHIATRIC: No concerning psychosocial issues. 12 point review of systems is negative except for those stated above Patient History <MADDI Mckay - Last Filed: 07/18/21 17:36> Medical History Anxiety with depression (~2016) Asthma (~2016) Cervical somatic dysfunction Chlamydia (~2012) Chronic back pain (~2017) Cranial somatic dysfunction History of recurrent ear infection (~2017) IBS (irritable bowel syndrome) (~2018) Migraines (~2016) Mild asthma No pertinent family history Post-concussion headache Postconcussion syndrome PTSD (post-traumatic stress disorder) (~2016) Rash Right wrist pain Thoracic region somatic dysfunction Tinnitus (~2017) Weight gain Surgical History No pertinent past surgical history Social History Smoking Status: Current every day smoker Smoking Status: Current every day smoker tobacco type: cigarettes alcohol intake frequency: holidays/special occasions only Substance Use Type: marijuana Exam <MADDI Mckay - Last Filed: 07/18/21 17:36> Narrative Exam Narrative: GENERAL: This is a well-nourished, well-developed patient, in no acute distress lying on self HEAD: Atraumatic. Normocephalic. No temporal or scalp tenderness. EYES: Pupils equal round and reactive. Extraocular motions intact. No scleral icterus. No injection or drainage. ENT: Nose without bleeding, purulent drainage or septal hematoma. Throat without erythema, tonsillar hypertrophy or exudate. Uvula midline. Airway patent. NECK: Trachea midline. No JVD or lymphadenopathy. Supple, nontender, no meningeal signs. CARDIOVASCULAR: Regular rate and rhythm RESPIRATORY: Clear to auscultation. Breath sounds equal bilaterally. No wheezes, rales, or rhonchi. No cough. No increased respiratory effort. No accessory m uscle use. GASTROINTESTINAL: Abdomen soft, diffusely tender over the epigastric area with active bowel sounds nondistended. No hepato-splenomegaly, or palpable masses. No guarding. EXTREMITIES: No clubbing, cyanosis, or edema. No joint tenderness, effusion, or edema noted. BACK: Nontender without deformity or crepitance. No flank tenderness. NEURO: AOx3. SKIN: No rash or erythema on visible skin Initial Vital Signs Initial Vital Signs: Vital Signs Temperature 98.3 F 07/18/21 13:06 Pulse Rate 89 07/18/21 13:06 Respiratory Rate 14 07/18/21 13:06 Blood Pressure 139/89 07/18/21 13:06 Pulse Oximetry 98 07/18/21 13:06 <Arnulfo Capps DO - Last Filed: 07/18/21 17:45> Initial Vital Signs Initial Vital Signs: Vital Signs Temperature 98.3 F 07/18/21 13:06 Pulse Rate 89 07/18/21 13:06 Respiratory Rate 14 07/18/21 13:06 Blood Pressure 139/89 07/18/21 13:06 Pulse Oximetry 98 07/18/21 13:06 Scores <MADDI Mckay - Last Filed: 07/18/21 17:36> GCS Gen coma scale eye opening: Spontaneous [place] coma scale verbal response: Orientated Gen coma scale motor response: Obey commands Gen coma scale total score: 15 <Arnulfo Capps DO - Last Filed: 07/18/21 17:45> GCS Gen coma scale total score: 15 Course <MADDI Mckay - Last Filed: 07/18/21 17:36> Orders Ordered: ED Orders 07/18/21 13:20 Amylase Stat Complete Blood Count AUTO DIFF Stat Comprehensive Metabolic Panel Stat D Dimer Stat Type and Screen Stat 07/18/21 13:53 XR chest 1V Stat Discontinued Medications Al Hydrox/Mg Hydrox/Simethicone 20 ml/ Lidocaine HCl 15 ml 0 ml PO NOW ONE Stop: 07/18/21 15:51 Last Admin: 07/18/21 15:55 Dose: 20 ml Documented by: JHON Ondansetron HCl (Ondansetron 4 Mg/2 Ml Inj) 4 mg IV NOW ONE Stop: 07/18/21 15:08 Last Admin: 07/18/21 15:19 Dose: 4 mg Documented by: JHON Pantoprazole Sodium (Pantoprazole 40 Mg Vial) 40 mg IV NOW ONE Stop: 07/18/21 15:08 Last Admin: 07/18/21 15:19 Dose: 40 mg Documented by: JHON Vital Signs Vital signs: Vital Signs - 8 hr 07/18/21 13:06 07/18/21 16:58 Temperature 98.3 F Pulse Rate 89 80 Respiratory Rate 14 16 Blood Pressure 139/89 130/75 Pulse Oximetry 98 97 <Arnulfo Capps DO - Last Filed: 07/18/21 17:45> Orders Ordered: ED Orders 07/18/21 13:20 Amylase Stat Complete Blood Count AUTO DIFF Stat Comprehensive Metabolic Panel Stat D Dimer Stat Type and Screen Stat 07/18/21 13:53 XR chest 1V Stat Discontinued Medications Al Hydrox/Mg Hydrox/Simethicone 20 ml/ Lidocaine HCl 15 ml 0 ml PO NOW ONE Stop: 07/18/21 15:51 Last Admin: 07/18/21 15:55 Dose: 20 ml Documented by: JHON Ondansetron HCl (Ondansetron 4 Mg/2 Ml Inj) 4 mg IV NOW ONE Stop: 07/18/21 15:08 Last Admin: 07/18/21 15:19 Dose: 4 mg Documented by: JHON Pantoprazole Sodium (Pantoprazole 40 Mg Vial) 40 mg IV NOW ONE Stop: 07/18/21 15:08 Last Admin: 07/18/21 15:19 Dose: 40 mg Documented by: JHON Vital Signs Vital signs: Vital Signs - 8 hr 07/18/21 13:06 07/18/21 16:58 Temperature 98.3 F Pulse Rate 89 80 Respiratory Rate 14 16 Blood Pressure 139/89 130/75 Pulse Oximetry 98 97 MDM - GI Bleed <MADDI Mckay - Last Filed: 07/18/21 17:36> Lab Data Attestation: I reviewed the patient's lab results. Result diagrams: 07/18/21 13:20 07/18/21 13:20 Labs: Lab Results 07/18/21 07/18/21 07/18/21 Range/Units 13:20 13:20 13:20 WBC 6.1 (4.5-11.0) X10^3/uL RBC 4.68 (4.0-5.2) X10^6/uL Hgb 14.5 (12.0-16.0) g/dL Hct 41.5 (36-46) % MCV 88.8 (80-100) fL MCH 31.0 (26-34) PG MCHC 35.0 (30-36) % RDW 12.5 (11.6-14.8) % Plt Count 267 (150-400) X10^3/uL Neut % (Auto) 50.5 (50-75) % Lymph % (Auto) 32.8 (25-40) % [place] % (Auto) 8.0 (3-14) % Eos % (Auto) 6.7 H (2-4) % Baso % (Auto) 2.0 (0-2) % Neut # (Auto) 3100 (7282-2419) /uL Lymph # (Auto) 2000 (8370-0641) /uL [place] # (Auto) 500 (0-900) /uL Eos # (Auto) 400 (0-450) /uL Baso # (Auto) 100 (0-100) /uL D-Dimer (<230) ng/mL Sodium 140 (137-145) mmol/L Potassium 4.0 (3.4-5.1) mmol/L Chloride 105 (98-107) mmol/L Carbon Dioxide 27 (22-32) mmol/L BUN 10 (7-17) mg/dL Creatinine 0.65 (0.52-1.04) mg/dL Estimated GFR > 60.0 (>60) mL/min BUN/Creatinine Ratio 15.4 (6-22) Glucose 95 (70-100) mg/dL Calcium 9.6 (8.4-10.2) mg/dL Total Bilirubin 0.7 (0.2-1.3) mg/dL AST 32 (14-36) IU/L ALT 47 H (<35) IU/L Alkaline Phosphatase 53 (38-126) U/L Total Protein 7.7 (6.3-8.2) g/dL Albumin 4.8 (3.5-5.0) g/dL Globulin 2.9 (1.7-4.1) g/dL Albumin/Globulin Ratio 1.7 (1.0-2.8) Amylase (30-110) U/L Blood Type A Positive Antibody Screen Negative 07/18/21 07/18/21 Range/Units 13:20 13:20 WBC (4.5-11.0) X10^3/uL RBC (4.0-5.2) X10^6/uL Hgb (12.0-16.0) g/dL Hct (36-46) % MCV (80-100) fL MCH (26-34) PG MCHC (30-36) % RDW (11.6-14.8) % Plt Count (150-400) X10^3/uL Neut % (Auto) (50-75) % Lymph % (Auto) (25-40) % [place] % (Auto) (3-14) % Eos % (Auto) (2-4) % Baso % (Auto) (0-2) % Neut # (Auto) (4311-7984) /uL Lymph # (Auto) (6741-5361) /uL [place] # (Auto) (0-900) /uL Eos # (Auto) (0-450) /uL Baso # (Auto) (0-100) /uL D-Dimer < 200 (<230) ng/mL Sodium (137-145) mmol/L Potassium (3.4-5.1) mmol/L Chloride (98-107) mmol/L Carbon Dioxide (22-32) mmol/L BUN (7-17) mg/dL Creatinine (0.52-1.04) mg/dL Estimated GFR (>60) mL/min BUN/Creatinine Ratio (6-22) Glucose (70-100) mg/dL Calcium (8.4-10.2) mg/dL Total Bilirubin (0.2-1.3) mg/dL AST (14-36) IU/L ALT (<35) IU/L Alkaline Phosphatase (38-126) U/L Total Protein (6.3-8.2) g/dL Albumin (3.5-5.0) g/dL Globulin (1.7-4.1) g/dL Albumin/Globulin Ratio (1.0-2.8) Amylase 63 (30-110) U/L Blood Type Antibody Screen Point of Care Testing Test Results Negative Urine Dip Bedside Urine Glucose Negative Bedside Urine Bilirubin - Negative Bedside Urine Ketone - Negative Urine Specific [place] 1.025 Bedside Urine Occult Blood - Negative Bedside Urine pH 6.0 Bedside Urine Protein - Negative Bedside Urine Urobilinogen - Negative Bedside Urine Nitrite - Negative Bedside Urine Leukocytes - Negative Esterase Imaging Data Chest x-ray: Radiologist's Impression: [address] [place] [id number] XRay Report Signed Patient: Sarah Kumar MR#: [id number] : 1995 Acct:[id number] Age/Sex: 25 / F Date of Service: 07/18/21 Loc: ED Accession Number: [id number] ?? Procedure: XR chest 1V Ordering Provider: Arnulfo Capps D.O. PROCEDURE:? XR CHEST 1V ? INDICATIONS:? Cough ? TECHNIQUE:? One view of the chest was acquired.? ? COMPARISON:? [facility], , XR CHEST 1V, 12/13/2020, 12:50. ? FINDINGS:? ? Surgical changes and devices:? None.? ? Lungs and pleura:? No consolidation demonstrated.? No pleural effusions or pneumothorax.? ? ? Mediastinum:? Mediastinal contours appear normal.? Heart size is normal.? ? Bones and chest wall:? No suspicious bony lesions.? Overlying soft tissues appear unremarkable.? ? IMPRESSION:? No acute cardiopulmonary abnormality identified. ? ? ? Dictated by: Sesar Harrington M.D. on 07/18/2021 at 14:17 ? ? Approved by: Sesar Harrington M.D. on 07/18/2021 at 14:18 ? MDM Narrative Medical decision making narrative: The patient is a 25-year-old female who presents with a chief complaint of coughing up blood. Chest x-ray is no acute findings with no evidence of pneumonia. Given her complaint of hemoptysis, PE was considered. D-dimer is negative. Her blood work is reassuring leukocytosis normal hemoglobin hematocrit. She does have pain to epigastric area palpation, which feels much improved after the of the above-stated therapies. We discussed pros and cons of scanning her today, and she elected to hold off she has had multiple rounds of imaging. I discussed at length the importance of following up with primary care provider, GERD appropriate diet, offered to Hemoccult test her stool to evaluate for GI bleed, but the patient declined. She has had no episodes of vomiting or coughing up blood in the emergency department today. She has been hemodynamically stable, in no acute distress. Given that she felt better after Protonix and Zofran, I did give her prescriptions there of the discussed she may need another scope in the future. Patient instructed to decrease caffeine, acid etcetera. Patient has no questions or concerns upon discharge states understanding return precautions as well as follow-up care. States she will come back to the emergency department for any acute concerns. <Arnulfo Capps, DO - Last Filed: 07/18/21 17:45> Lab Data Labs: Lab Results 07/18/21 07/18/21 07/18/21 Range/Units 13:20 13:20 13:20 WBC 6.1 (4.5-11.0) X10^3/uL RBC 4.68 (4.0-5.2) X10^6/uL Hgb 14.5 (12.0-16.0) g/dL Hct 41.5 (36-46) % MCV 88.8 (80-100) fL MCH 31.0 (26-34) PG MCHC 35.0 (30-36) % RDW 12.5 (11.6-14.8) % Plt Count 267 (150-400) X10^3/uL Neut % (Auto) 50.5 (50-75) % Lymph % (Auto) 32.8 (25-40) % [place] % (Auto) 8.0 (3-14) % Eos % (Auto) 6.7 H (2-4) % Baso % (Auto) 2.0 (0-2) % Neut # (Auto) 3100 (6477-4298) /uL Lymph # (Auto) 2000 (4116-9432) /uL [place] # (Auto) 500 (0-900) /uL Eos # (Auto) 400 (0-450) /uL Baso # (Auto) 100 (0-100) /uL D-Dimer (<230) ng/mL Sodium 140 (137-145) mmol/L Potassium 4.0 (3.4-5.1) mmol/L Chloride 105 (98-107) mmol/L Carbon Dioxide 27 (22-32) mmol/L BUN 10 (7-17) mg/dL Creatinine 0.65 (0.52-1.04) mg/dL Estimated GFR > 60.0 (>60) mL/min BUN/Creatinine Ratio 15.4 (6-22) Glucose 95 (70-100) mg/dL Calcium 9.6 (8.4-10.2) mg/dL Total Bilirubin 0.7 (0.2-1.3) mg/dL AST 32 (14-36) IU/L ALT 47 H (<35) IU/L Alkaline Phosphatase 53 (38-126) U/L Total Protein 7.7 (6.3-8.2) g/dL Albumin 4.8 (3.5-5.0) g/dL Globulin 2.9 (1.7-4.1) g/dL Albumin/Globulin Ratio 1.7 (1.0-2.8) Amylase (30-110) U/L Blood Type A Positive Antibody Screen Negative 07/18/21 07/18/21 Range/Units 13:20 13:20 WBC (4.5-11.0) X10^3/uL RBC (4.0-5.2) X10^6/uL Hgb (12.0-16.0) g/dL Hct (36-46) % MCV (80-100) fL MCH (26-34) PG MCHC (30-36) % RDW (11.6-14.8) % Plt Count (150-400) X10^3/uL Neut % (Auto) (50-75) % Lymph % (Auto) (25-40) % [place] % (Auto) (3-14) % Eos % (Auto) (2-4) % Baso % (Auto) (0-2) % Neut # (Auto) (2836-4146) /uL Lymph # (Auto) (3339-3933) /uL [place] # (Auto) (0-900) /uL Eos # (Auto) (0-450) /uL Baso # (Auto) (0-100) /uL D-Dimer < 200 (<230) ng/mL Sodium (137-145) mmol/L Potassium (3.4-5.1) mmol/L Chloride (98-107) mmol/L Carbon Dioxide (22-32) mmol/L BUN (7-17) mg/dL Creatinine (0.52-1.04) mg/dL Estimated GFR (>60) mL/min BUN/Creatinine Ratio (6-22) Glucose (70-100) mg/dL Calcium (8.4-10.2) mg/dL Total Bilirubin (0.2-1.3) mg/dL AST (14-36) IU/L ALT (<35) IU/L Alkaline Phosphatase (38-126) U/L Total Protein (6.3-8.2) g/dL Albumin (3.5-5.0) g/dL Globulin (1.7-4.1) g/dL Albumin/Globulin Ratio (1.0-2.8) Amylase 63 (30-110) U/L Blood Type Antibody Screen Point of Care Testing Test Results Negative Urine Dip Bedside Urine Glucose Negative Bedside Urine Bilirubin - Negative Bedside Urine Ketone - Negative Urine Specific [place] 1.025 Bedside Urine Occult Blood - Negative Bedside Urine pH 6.0 Bedside Urine Protein - Negative Bedside Urine Urobilinogen - Negative Bedside Urine Nitrite - Negative Bedside Urine Leukocytes - Negative Esterase Discharge Plan Departure Patient Disposition: Home Clinical Impression: Abdominal pain, Nausea Instructions: Gastroesophageal Reflux Disease (Alternative Therapy), DI for Gastroesophageal Reflux Disease (GERD), DI for Abdominal Pain-Adult, GERD Diet, DI for Hemoptysis Activity Restrictions/Additional Instructions: Thank you for trusting us with your care today. Your lab work today was very reassuring, your chest x-ray had no signs of pneumonia etcetera. As discussed, please avoid coffee, acidic foods, deep fried fatty foods, alcohol as these can all make epigastric pain and acid reflux worse. I sent 2 prescriptions to [facility], 1 for nausea medicine and another to take every day to help prevent acid. As discussed, follow-up with primary care provider in the next few days, please come back to the emergency department for any acute concerns. Prescriptions: New ondansetron 4 mg tablet,disintegrating 4 mg PO Q6H PRN (Reason: nausea and vomiting) Qty: 20 0RF pantoprazole [Protonix] 40 mg tablet,delayed release (DR/EC) 40 mg PO DAILY Qty: 30 0RF No Action sertraline 50 mg tablet 50 mg PO DAILY 90 Days Qty: 90 2RF rizatriptan 10 mg tablet See Rx Instructions PO .COMPLEX Qty: 10 5RF Rx Instructions: take 1 tab at onset of headache; if no relief may repeat 1 tab after at least 2 hrs; max = 3 tabs/24 hr PO albuterol sulfate 90 mcg/actuation HFA aerosol inhaler 2 inhalation INHALATION Q4-6H PRN (Reason: cough/asthma) Qty: 8.5 0RF Rx Instructions: subst on formulary okay, please disp with spacer and training ondansetron 4 mg tablet,disintegrating 4 mg PO TID-QID PRN (Reason: nausea and vomiting) Qty: 10 0RF Referrals: Lucas Pastor ARNP [Primary Care Provider] - Stand Alone Forms: Work Release Note <Arnulfo Capps, - Last Filed: 07/18/21 17:45> Cosign ED Attending Cosignature Attestation: Dr Capps Co-Sign Statement: I was available for consultation during this patient's emergency department visit. This chart is signed by myself for administrative purposes only. I did not have direct contact with this patient during this visit. They were seen independently by the APC.
[2021-07-18 16:58] VITALS: BP 130/75; PULSE 80; RESP 16; O2SAT 97
== END 2021-07-18 16:59 | disposition home or self-care (01) ==
PROVIDERS: Emergency Medicine; Emergency Provider Nurse Practitioner Family; PCP Registered Nurse
DX: R10.13 Epigastric pain (principal); R11.0 Nausea; Z88.0 Allergy status to penicillin; Z88.6 Allergy status to analgesic agent; Z88.8 Allergy status to other drugs, medicaments and biological substances; F17.210 Nicotine dependence, cigarettes, uncomplicated
CPT/HCPCS: 36415; 71045; 80053; 81003; 81025; 82150; 85025; 85379; 86850; 86900; 86901; 96374; 96375; 99284; C9113; J2405

== ENCOUNTER → 2021-08-09 15:03 | Outpatient (CLI) | payer OTHER, MEDICAID, SELFPAY ==
[2021-08-09 15:37] LABS: COVID19 -Nasal RAPID Negative (Negative)
== END ==
PROVIDERS: PCP Registered Nurse; Referring Provider Nurse Practitioner Family; Visit Provider Nurse Practitioner Family
DX: Z20.822 Contact with and (suspected) exposure to COVID-19 (principal)
CPT/HCPCS: 87635

== ENCOUNTER 2021-09-21 19:34 | Emergency (ER) | payer OTHER, MEDICAID, SELFPAY ==
[2021-09-21] VITALS (20 sets, daily range): BP systolic 93–140; BP diastolic 49–80; PULSE 111–150; RESP 13–76; TEMP 37.8; O2SAT 92–98; BMI 31.1
[2021-09-21] MEDS: LORazepam 2 MG/ML INJ (19:35)
[2021-09-21] MEDS: EPINEPHrine 1 MG/ML (19:35)
[2021-09-21] MEDS: methylPREDNISolone 125 MG/2 ML VIAL (19:40)
--- NOTE | 2021-09-21 19:41 | DI.RAD.S_ITS ---
PROCEDURE: XR CHEST 1V INDICATIONS: diff breathing TECHNIQUE: One view of the chest was acquired. COMPARISON: [facility], CR, XR CHEST 1V, 07/18/2021, 13:55. FINDINGS: Surgical changes and devices: None. Lungs and pleura: Mildly increased bronchovascular markings in bilateral hilar region are seen. No definite focal infiltrate. No pleural effusions or pneumothorax. Mediastinum: Mediastinal contours appear normal. Heart size is normal. Bones and chest wall: No suspicious bony lesions. Overlying soft tissues appear unremarkable. IMPRESSION: Suggestion of mild reactive airway disease. No definite focal infiltrate. No pleural effusion or pneumothorax. Dictated by: Heladio Helton M.D. on 09/21/2021 at 19:50 Approved by: Heladio Helton M.D. on 09/21/2021 at 19:50
[2021-09-21 19:55] LABS: Add Manual Diff / Slide Review NO; Basophils Absolute Auto 100 /uL (0-100); Basophils Percent Auto 0.9 % (0-2); Eosinophils Absolute Auto 300 /uL (0-450); Eosinophils Percent Auto 2.3 % (2-4); Hematocrit 42.2 % (36-46); Lymphocytes Absolute Auto 2300 /uL (1100-4500); Lymphocytes Percent Auto 15.7 % (25-40); Mean Corpuscular HGB Conc 35.5 % (30-36); Mean Corpuscular Hemoglobin 31.1 PG (26-34); Mean Corpuscular Volume 87.7 fL (80-100); Monocytes Absolute Auto 900 /uL (0-900); Neutrophils Absolute Auto 11200 /uL (1500-7000); Neutrophils Percent Auto 75.1 % (50-75); Platelet Count 236 X10^3/uL (150-400); Red Blood Cell Count 4.81 X10^6/uL (4.0-5.2); Red Cell Distribution Width 12.4 % (11.6-14.8); White Blood Cell Count 14.9 X10^3/uL (4.5-11.0)
[2021-09-21] MEDS: ALBUTEROL 2.5 MG/3 ML NEB (ADULT) 20 MG INH (19:58)
[2021-09-21 20:00] LABS: HCO3 ABG 22 mmol/L (22-26); PCO2 ABG 25.7 mmHg (35-45); PO2 ABG 88 mmHg (80-100); pH ABG 7.54 (7.35-7.45)
[2021-09-21] MEDS: LORazepam 2 MG/ML INJ 0.5 MG IV (20:00)
[2021-09-21 20:01] LABS: Fractionated Inspired Oxygen 32; Oxygen Saturation ABG 98 % (95-100); TCO2 ABG 23 mmol/L (21-31)
[2021-09-21] MEDS: FAMOTIDINE 20 MG/2 ML VIAL IV (20:02)
[2021-09-21 21:01] LABS: Alanine Aminotransferase 53 IU/L (<35); Albumin Globulin Ratio 1.6 (1.0-2.8); Alkaline Phosphatase 62 U/L (38-126); Aspartate Aminotransferase 35 IU/L (14-36); BUN Creatinine Ratio 13.8 (6-22); Bilirubin Total 1.4 mg/dL (0.2-1.3); Blood Urea Nitrogen 12 mg/dL (7-17); Calcium 8.9 mg/dL (8.4-10.2); Carbon Dioxide 28 mmol/L (22-32); Chloride 101 mmol/L (98-107); Estimated Glomerular Filt Rate > 60.0 mL/min (>60); Globulin 3.1 g/dL (1.7-4.1); Glucose 133 mg/dL (70-100); HEMOLYSIS < 15 (0-50); Potassium 3.2 mmol/L (3.4-5.1); Sodium 136 mmol/L (137-145); Total Protein 8.1 g/dL (6.3-8.2)
[2021-09-21 21:12] LABS: Troponin I < 0.012 ng/mL (0.01-0.034)
[2021-09-21 21:19] LABS: D Dimer < 200 ng/mL (<230)
[2021-09-21 21:39] LABS: Adenovirus Not Detected (Not Detect); B. parapertussis Not Detected (Not Detecte); Bordetella pertussis Not Detected (Not Detecte); Chlamydophila pneumoniae Not Detected (Not Detect); Coronavirus 229E Not Detected (Not Detect); Coronavirus HKU1 Not Detected (Not Detect); Coronavirus NL 63 Not Detected (Not Detect); Coronavirus OC43 Not Detected (Not Detect); Human Metapneumovirus Not Detected (Not Detect); Human Rhinovirus/Enterovirus Not Detected (Not Detect); Influenza A Not Detected (Not Detect); Influenza B Not Detected (Not Detect); Mycoplasma pneumoniae Not Detected (Not Detect); Parainfluenza Virus 1 Not Detected (Not Detect); Parainfluenza Virus 2 Not Detected (Not Detect); Parainfluenza Virus 3 Not Detected (Not Detect); Parainfluenza Virus 4 Not Detected (Not Detect); Respiratory Syncytial Virus Not Detected (Not Detect); SARS- CoV-2 Not Detected (Not Detecte)
--- NOTE | 2021-09-21 22:06 | ED.GENADULT ---
HPI - General Adult General Chief complaint: Shortness of Breath/Dyspnea Stated complaint: Shortness of breath Time Seen by Provider: 09/21/21 19:34 Source: EMS Mode of arrival: EMS History of Present Illness HPI narrative: 25-year-old woman with a history of mild intermittent asthma brought in by medics in severe respiratory distress. She reports being in her usual state of health stepping into the shower becoming significantly short of breath and by the time she got out she felt that she could not breathe at all and 911 was called. On arrival they found her to be hypoxic, tachypneic into the 60s, unable to speak with almost no air movement. No evidence of upper airway obstruction. IV was started and she was given 20 mg of ketamine 2 g of magnesium multiple doses of albuterol and transported to the emergency department. She was in extremis on arrival with uncertain etiology but overall poor air movement. Significant tachypnea with carpal pedal spasm. She was unable to speak to offer additional history. Related Data Previous Rx's Medication Instructions Recorded albuterol sulfate 90 mcg/actuation 2 inhalation INHALATION Q4-6H PRN 10/21/18 aerosol inhaler #8.5 gram sertraline 50 mg tablet 50 mg PO DAILY 90 Days #90 tab 12/22/20 ondansetron 4 mg disintegrating 4 mg PO TID-QID PRN #10 tab 03/10/21 tablet rizatriptan 10 mg tablet See Rx Instructions PO .COMPLEX 03/31/21 #10 tab ondansetron 4 mg disintegrating 4 mg PO Q6H PRN #20 tab 07/18/21 tablet pantoprazole 40 mg tablet,delayed 40 mg PO DAILY #30 tab 07/18/21 release (Protonix) albuterol sulfate 90 mcg/actuation 2 puff INHALATION BID #8.5 g 09/22/21 aerosol inhaler prednisone 20 mg tablet 20 mg PO DAILY #5 tab 09/22/21 Allergies Allergy/AdvReac Type Severity Reaction Status Date / Time lavender (Lavandula Allergy Severe Swelling Verified 08/24/21 08:14 angustifolia) of Lip/Tongue/Throat amoxicillin Allergy Verified 08/24/21 08:14 aspirin Allergy Verified 08/24/21 08:14 diphenhydramine Allergy Verified 08/24/21 08:14 [From Benadryl] Penicillins Allergy Verified 08/24/21 08:14 sumatriptan [From Imitrex] Allergy Verified 08/24/21 08:14 Review of Systems Review of Systems ROS Unobtainable: Unobtainable due to medical condition Patient History Medical History Anxiety with depression (~2016) Asthma (~2016) Cervical somatic dysfunction Chlamydia (~2012) Chronic back pain (~2016) Cranial somatic dysfunction Hearing loss History of recurrent ear infection (~2016) IBS (irritable bowel syndrome) (~2017) Migraines (~2015) Mild asthma No pertinent family history Post-concussion headache Postconcussion syndrome PTSD (post-traumatic stress disorder) (~2015) Rash Right wrist pain Skin lesion Thoracic region somatic dysfunction Tinnitus (~2016) Weight gain Surgical History No pertinent past surgical history Social History Smoking Status: Current every day smoker Smoking Status: Current every day smoker tobacco type: cigarettes alcohol intake frequency: holidays/special occasions only Substance Use Type: marijuana Exam Initial Vital Signs Initial Vital Signs: Vital Signs Pulse Rate 116 H 09/21/21 19:43 Respiratory Rate 37 H 09/21/21 19:43 Pulse Oximetry 93 09/21/21 19:43 General: In acute respiratory distress, unable to speak, dramatic tachypnea, poor overall air movement, significant diaphoresis HEENT: Moist mucous membranes, normal sclera with reactive pupils, Respiratory: Minimal air movement at all Cardiac: Tachycardic with no murmurs Abdomen: Soft, nontender, Skin: Dramatically diaphoretic, flushed, poor distal perfusion Neurologic: Moving all extremities, dramatic anxiety, significant carpal pedal spasm Extremities: No trauma, Psych: In medical extremis with attempts to cooperate with immediate medical care Course Orders Ordered: Discontinued Medications Albuterol (Albuterol 2.5 Mg/3 Ml Neb (Adult)) 20 mg INH NOW ONE Stop: 09/21/21 19:49 Last Admin: 09/21/21 19:58 Dose: 20 mg Documented by: LIA Famotidine (Famotidine 20 Mg/2 Ml Vial) 20 mg IV NOW ONE Stop: 09/21/21 19:51 Last Admin: 09/21/21 20:02 Dose: 20 mg Documented by: GIDEON Lorazepam (Lorazepam 2 Mg/Ml Inj) 0.5 mg IV NOW ONE Stop: 09/21/21 19:50 Last Admin: 09/21/21 20:00 Dose: 0.5 mg Documented by: GIDEON Vital Signs Vital signs: Vital Signs - 8 hr 09/21/21 22:30 09/21/21 23:00 09/21/21 23:30 Pulse Rate 141 H 125 H 120 H Respiratory Rate 31 H 30 H 31 H Blood Pressure 101/49 L 105/60 93/54 L Pulse Oximetry 96 96 96 09/22/21 00:00 Pulse Rate 117 H Respiratory Rate 15 Blood Pressure Pulse Oximetry 96 Medical Decision Making Lab Data Result diagrams: 09/21/21 19:40 09/21/21 19:40 Labs: Lab Results 09/21/21 09/21/21 09/21/21 Range/Units 19:40 19:40 19:40 WBC 14.9 H (4.5-11.0) X10^3/uL RBC 4.81 (4.0-5.2) X10^6/uL Hgb 15.0 (12.0-16.0) g/dL Hct 42.2 (36-46) % MCV 87.7 (80-100) fL MCH 31.1 (26-34) PG MCHC 35.5 (30-36) % RDW 12.4 (11.6-14.8) % Plt Count 236 (150-400) X10^3/uL Neut % (Auto) 75.1 H (50-75) % Lymph % (Auto) 15.7 L (25-40) % [place] % (Auto) 6.0 (3-14) % Eos % (Auto) 2.3 (2-4) % Baso % (Auto) 0.9 (0-2) % Neut # (Auto) 82145 H (8757-1326) /uL Lymph # (Auto) 2300 (4086-6869) /uL [place] # (Auto) 900 (0-900) /uL Eos # (Auto) 300 (0-450) /uL Baso # (Auto) 100 (0-100) /uL D-Dimer < 200 (<230) ng/mL ABG pH (7.35-7.45) ABG pCO2 (35-45) mmHg ABG pO2 (80-100) mmHg ABG HCO3 (22-26) mmol/L ABG Total CO2 (21-31) mmol/L ABG O2 Saturation (95-100) % ABG Base Excess (-2-2) mmol/L FiO2 Sodium 136 L (137-145) mmol/L Potassium 3.2 L (3.4-5.1) mmol/L Chloride 101 (98-107) mmol/L Carbon Dioxide 28 (22-32) mmol/L BUN 12 (7-17) mg/dL Creatinine 0.87 (0.52-1.04) mg/dL Estimated GFR > 60.0 (>60) mL/min BUN/Creatinine Ratio 13.8 (6-22) Glucose 133 H (70-100) mg/dL Calcium 8.9 (8.4-10.2) mg/dL Total Bilirubin 1.4 H (0.2-1.3) mg/dL AST 35 (14-36) IU/L ALT 53 H (<35) IU/L Alkaline Phosphatase 62 (38-126) U/L Troponin I < 0.012 (0.01-0.034) ng/mL Total Protein 8.1 (6.3-8.2) g/dL Albumin 5.0 (3.5-5.0) g/dL Globulin 3.1 (1.7-4.1) g/dL Albumin/Globulin Ratio 1.6 (1.0-2.8) Chlamy pneumoniae PCR (Not Detect) Adenovirus (PCR) (Not Detect) B. pertussis DNA (PCR) (Not Detecte) B.parapertussis DNA PCR (Not Detecte) Coronavirus OC43 (PCR) (Not Detect) Coronavirus HKU1 (PCR) (Not Detect) Coronavirus 229E (PCR) (Not Detect) SARS-CoV-2 (PCR) (Not Detecte) Coronavirus NL63 (PCR) (Not Detect) Human Metapneumovir PCR (Not Detect) Influenza Type A (PCR) (Not Detect) Influenza Type B (PCR) (Not Detect) M. pneumoniae (PCR) (Not Detect) Parainfluenza 1 (PCR) (Not Detect) Parainfluenza 2 (PCR) (Not Detect) Parainfluenza 3 (PCR) (Not Detect) Parainfluenza 4 (PCR) (Not Detect) RSV (PCR) (Not Detect) Entero/Rhino (PCR) (Not Detect) 09/21/21 09/21/21 Range/Units 19:51 20:05 WBC (4.5-11.0) X10^3/uL RBC (4.0-5.2) X10^6/uL Hgb (12.0-16.0) g/dL Hct (36-46) % MCV (80-100) fL MCH (26-34) PG MCHC (30-36) % RDW (11.6-14.8) % Plt Count (150-400) X10^3/uL Neut % (Auto) (50-75) % Lymph % (Auto) (25-40) % [place] % (Auto) (3-14) % Eos % (Auto) (2-4) % Baso % (Auto) (0-2) % Neut # (Auto) (8343-7361) /uL Lymph # (Auto) (2303-2591) /uL [place] # (Auto) (0-900) /uL Eos # (Auto) (0-450) /uL Baso # (Auto) (0-100) /uL D-Dimer (<230) ng/mL ABG pH 7.54 H (7.35-7.45) ABG pCO2 25.7 L (35-45) mmHg ABG pO2 88 (80-100) mmHg ABG HCO3 22 (22-26) mmol/L ABG Total CO2 23 (21-31) mmol/L ABG O2 Saturation 98 (95-100) % ABG Base Excess -1.0 (-2-2) mmol/L FiO2 32 Sodium (137-145) mmol/L Potassium (3.4-5.1) mmol/L Chloride (98-107) mmol/L Carbon Dioxide (22-32) mmol/L BUN (7-17) mg/dL Creatinine (0.52-1.04) mg/dL Estimated GFR (>60) mL/min BUN/Creatinine Ratio (6-22) Glucose (70-100) mg/dL Calcium (8.4-10.2) mg/dL Total Bilirubin (0.2-1.3) mg/dL AST (14-36) IU/L ALT (<35) IU/L Alkaline Phosphatase (38-126) U/L Troponin I (0.01-0.034) ng/mL Total Protein (6.3-8.2) g/dL Albumin (3.5-5.0) g/dL Globulin (1.7-4.1) g/dL Albumin/Globulin Ratio (1.0-2.8) Chlamy pneumoniae PCR Not detected (Not Detect) Adenovirus (PCR) Not detected (Not Detect) B. pertussis DNA (PCR) Not detected (Not Detecte) B.parapertussis DNA PCR Not detected (Not Detecte) Coronavirus OC43 (PCR) Not detected (Not Detect) Coronavirus HKU1 (PCR) Not detected (Not Detect) Coronavirus 229E (PCR) Not detected (Not Detect) SARS-CoV-2 (PCR) Not detected (Not Detecte) Coronavirus NL63 (PCR) Not detected (Not Detect) Human Metapneumovir PCR Not detected (Not Detect) Influenza Type A (PCR) Not detected (Not Detect) Influenza Type B (PCR) Not detected (Not Detect) M. pneumoniae (PCR) Not detected (Not Detect) Parainfluenza 1 (PCR) Not detected (Not Detect) Parainfluenza 2 (PCR) Not detected (Not Detect) Parainfluenza 3 (PCR) Not detected (Not Detect) Parainfluenza 4 (PCR) Not detected (Not Detect) RSV (PCR) Not detected (Not Detect) Entero/Rhino (PCR) Not detected (Not Detect) Imaging Data Chest x-ray: Radiologist's Impression: FINDINGS:? ? Surgical changes and devices:? None.? ? Lungs and pleura:? Mildly increased bronchovascular markings in bilateral hilar region are seen.? No definite focal infiltrate.? No pleural effusions or pneumothorax.? ? Mediastinum:? Mediastinal contours appear normal.? Heart size is normal.? ? Bones and chest wall:? No suspicious bony lesions.? Overlying soft tissues appear unremarkable.? ? IMPRESSION:? Suggestion of mild reactive airway disease.? No definite focal infiltrate.? No pleural effusion or pneumothorax. ? ? Dictated by: Heladio Helton M.D. on 09/21/2021 at 19:50 ? ? Approved by: Heladio Helton M.D. on 09/21/2021 at 19:50?? MDM Narrative Medical decision making narrative: 25-year-old woman brought in in respiratory extremis concern for acute respiratory arrest. Plans were urgently made for intubation. On immediate arrival she had already received DuoNeb and multiple nebulized albuterol doses 20 mg of IV ketamine, was on magnesium drip. Immediately on arrival she was given IM epinephrine, IV Ativan, a L of fluid 125 mg of Solu-Medrol and IV Pepcid. Given her history of mild intermittent asthma only the extremis with rapid development and not significant preceding symptoms is suspect. There is no evidence of upper airway obstruction. Immediate chest x-ray revealed no evidence of widened mediastinum or pneumothorax. She did begin to respond to immediate medical management and continued albuterol nebulized treatment. We were able to successfully avoid intubation. Alternate explanations were considered including pulmonary embolism which is ruled out, acute coronary syndrome, ruled out. Possibility of anaphylaxis was entertained. With continued nebulized treatments she continue to improve over her hospital stay. She does give a history of cleaning her whole house in using for [employer] on her furniture, has not had allergic reaction to similar [employer]. The fact that her symptoms started in the shower with no new soaps cleansers or other chemicals is somewhat surprising. Clearly there was a significant degree of panic with complicating carpal pedal spasm. At time of discharge she was back to her baseline entirely. There is absolutely no wheeze, full and symmetrical respiratory excursion, no chest pain or dyspnea, no allergy symptoms and anxiety completely alleviated. Given the entire negative workup and her significant interest in home discharge, she is discharged home. Have her complete 5 additional days of prednisone and schedule albuterol use with prescription for MDI given. Will ask for follow-up with her primary care physician. I did suggest that if she had any recurrent upper respiratory symptoms upon returning to her home that she spent the evening in an alternate location on the off chance that this was an anaphylactic reaction to chemicals used in cleaning. At this time she is safe for home discharge Critical Care Time Critical Care Time Critical Care Time: Yes Total Critical Care Time: 52 Attestation: Critical care time is separate from other billable procedures. There is a high probability of a significant, sudden or life-threatening deterioration that requires my full and direct attention, intervention and personal management. This critical care time includes consultation with family and other consulting doctors, review of records, and interpretation of data from labs, EKGs and imaging as well as managements of acute respiratory failure with impending respiratory arrest Discharge Plan Departure Patient Disposition: Home Clinical Impression: Respiratory failure, acute, Acute asthma exacerbation, Acute hyperventilation Instructions: DI for Asthma -- Adult, DI for Anaphylaxis Activity Restrictions/Additional Instructions: You had a very frightening event this evening I believe the event was a combination of an acute asthma exacerbation, hyperventilation, and the possibility of anaphylaxis complicating both of those is also considered. You do not have COVID or any of the 20 other viruses we had checked. There is no collapsed lung, you do not have pneumonia, no heart attack and no masses or tumors. In the emergency department you are given steroids, IV magnesium, large doses of nebulized albuterol, a shot of epinephrine After number of hours your airways are opening up nicely. I am very reassured in listening to your lungs just prior to discharge. I am going to recommend 5 days of steroid, prednisone, 20 mg Prescriptions for both transmitted to [facility] I am also going to give you a prescription for an albuterol inhaler with spacer. I would recommend using the inhaler twice in the morning and twice in the evening and any time that you feel your chest or throat tightening. If you notice increased throat tightening or recurrent symptoms when you get back to your home this evening, I would encourage you to spend the night in a different physical location on the off chance that you are having an acute allergic reaction to some of the cleaning material used yesterday If you have worsening symptoms please do return to the ER Prescriptions: New prednisone 20 mg tablet 20 mg PO DAILY Qty: 5 0RF albuterol sulfate 90 mcg/actuation HFA aerosol inhaler 2 puff inhalation BID Qty: 8.5 1RF Rx Instructions: Please dispense with spacer and instructions No Action sertraline 50 mg tablet 50 mg PO DAILY 90 Days Qty: 90 2RF rizatriptan 10 mg tablet See Rx Instructions PO .COMPLEX Qty: 10 5RF Rx Instructions: take 1 tab at onset of headache; if no relief may repeat 1 tab after at least 2 hrs; max = 3 tabs/24 hr PO albuterol sulfate 90 mcg/actuation HFA aerosol inhaler 2 inhalation INHALATION Q4-6H PRN (Reason: cough/asthma) Qty: 8.5 0RF Rx Instructions: subst on formulary okay, please disp with spacer and training ondansetron 4 mg tablet,disintegrating 4 mg PO TID-QID PRN (Reason: nausea and vomiting) Qty: 10 0RF ondansetron 4 mg tablet,disintegrating 4 mg PO Q6H PRN (Reason: nausea and vomiting) Qty: 20 0RF pantoprazole [Protonix] 40 mg tablet,delayed release (DR/EC) 40 mg PO DAILY Qty: 30 0RF Referrals: Lucas Pastor ARNP [Primary Care Provider] -
[2021-09-22] VITALS: PULSE 117; RESP 15; O2SAT 96
== END 2021-09-22 01:00 | disposition home or self-care (01) ==
PROVIDERS: Emergency Provider Emergency Medicine; PCP Registered Nurse
DX: J96.01 Acute respiratory failure with hypoxia (principal); J45.901 Unspecified asthma with (acute) exacerbation; F17.210 Nicotine dependence, cigarettes, uncomplicated
CPT/HCPCS: 36415; 36600; 71045; 80053; 82805; 84484; 85025; 85379; 87633; 96374; 96375; 99285; 99291; J0171; J2060; J2930; J7613

== ENCOUNTER 2024-07-03 10:09 | Emergency (ER) | payer OTHER, MEDICAID, SELFPAY ==
[2024-07-03] VITALS (11 sets, daily range): BP systolic 112–129; BP diastolic 70–82; PULSE 57–95; RESP 16–26; TEMP 37.1; O2SAT 94–100; BMI 30.2
--- NOTE | 2024-07-03 10:33 | ED_ITS ---
HPI - Headache General Chief Complaint: Headache Stated Complaint: bad headache Time Seen by Provider: 07/03/24 10:31 History of Present Illness HPI Narrative: 28-year-old female with history of recurrent headaches for which he has no longer taking Triptan, chart history of cervical somatic dysfunction, cranial somatic dysfunction, thoracic region somatic dysfunction, has had global headache now for the last couple of days, not responsive to [id number] pain medications. No weakness or numbness to face arm or leg. No injury trauma new activities. No change in medications or new medications, she has not recently stopped any medications. Related Data Previous Rx's Medication Instructions Recorded albuterol sulfate 90 mcg/actuation 2 inhalation inhalation Q4-6H PRN 10/21/18 aerosol inhaler cough/asthma #8.5 grams ondansetron 4 mg disintegrating 4 mg PO TID-QID PRN nausea and 03/10/21 tablet vomiting #10 tabs rizatriptan 10 mg tablet See Rx Instructions PO .COMPLEX 03/31/21 #10 tabs ondansetron 4 mg disintegrating 4 mg PO Q6H PRN nausea and 07/18/21 tablet vomiting #20 tabs pantoprazole 40 mg tablet,delayed 40 mg PO DAILY #30 tabs 07/18/21 release (Protonix) albuterol sulfate 90 mcg/actuation 2 puff inhalation BID #8.5 grams 09/22/21 aerosol inhaler prednisone 20 mg tablet 20 mg PO DAILY #5 tabs 09/22/21 Allergies Allergy/AdvReac Type Severity Reaction Status Date / Time lavender (Lavandula Allergy Severe Swelling Verified 08/24/21 08:14 angustifolia) of Lip/Tongue/Throat amoxicillin Allergy Verified 08/24/21 08:14 aspirin Allergy Verified 08/24/21 08:14 diphenhydramine Allergy Verified 08/24/21 08:14 [From Benadryl] Penicillins Allergy Verified 08/24/21 08:14 sumatriptan [From Imitrex] Allergy Verified 08/24/21 08:14 Review of Systems Review of Systems Narrative: See HPI Patient History Medical History Anxiety with depression (~2015) Asthma (~2015) Cervical somatic dysfunction Chlamydia (~2012) Chronic back pain (~2017) Cranial somatic dysfunction Hearing loss History of recurrent ear infection (~2017) IBS (irritable bowel syndrome) (~2018) Migraines (~2016) Mild asthma No pertinent family history Post-concussion headache Postconcussion syndrome PTSD (post-traumatic stress disorder) (~2016) Rash Right wrist pain Skin lesion Thoracic region somatic dysfunction Tinnitus (~2017) Weight gain Surgical History No pertinent past surgical history Social History Smoking Status: Current every day smoker Smoking Status: Current every day smoker tobacco type: cigarettes alcohol intake frequency: holidays/special occasions only Substance Use Type: marijuana Exam Narrative Exam Narrative: GENERAL: Well-developed patient, in mild distress. HEAD: Atraumatic. Normocephalic. EYES: Pupils equal round and reactive. Extraocular motions intact. No scleral icterus. No injection or drainage. ENT: Nose without bleeding, purulent drainage. Throat without erythema, tonsillar hypertrophy or exudate. Airway patent. NECK: Trachea midline. Non tender CARDIOVASCULAR: Regular rate and rhythm without murmurs, gallops, or rubs. RESPIRATORY: Clear to auscultation. Breath sounds equal bilaterally. No wheezes, rales, or rhonchi. GASTROINTESTINAL: Abdomen soft, non-tender, nondistended. EXTREMITIES: No edema or joint tenderness. BACK: Nontender without deformity or crepitance. No flank tenderness. NEURO: AOx3. Motor functions grossly normal SKIN: No rash or erythema of visible areas Initial Vital Signs Initial Vital Signs: Vital Signs Pulse Rate 86 07/03/24 10:22 Pulse Oximetry 99 07/03/24 10:22 Course Orders Ordered: Discontinued Medications Dexamethasone (Dexamethasone 10 Mg/Ml Vial) 10 mg IV NOW ONE Stop: 07/03/24 10:32 Last Admin: 07/03/24 11:10 Dose: 10 mg Documented By: EJ Diphenhydramine HCl (Diphenhydramine 50 Mg/Ml Vial) 25 mg IV NOW ONE Stop: 07/03/24 10:32 Last Admin: 07/03/24 11:09 Dose: Not Given Documented By: EJ Sodium Chloride (Normal Saline 0.9%) 1,000 mls @ 1,000 mls/hr IV BOLUS ONE Stop: 07/03/24 11:30 Last Infusion: 07/03/24 12:25 Dose: Infused Documented By: Admin: 07/03/24 11:11 Dose: 1,000 mls/hr Documented By: EJ Ketorolac Tromethamine (Ketorolac 30 Mg/Ml Vial) 15 mg IV NOW ONE Stop: 07/03/24 10:33 Last Admin: 07/03/24 11:07 Dose: 15 mg Documented By: EJ Lorazepam (Lorazepam 2 Mg/Ml Inj) 1 mg IV NOW ONE Stop: 07/03/24 10:40 Last Admin: 07/03/24 11:07 Dose: 1 mg Documented By: EJ Prochlorperazine (Prochlorperazine 10 Mg/2 Ml Vial) 10 mg IV NOW ONE Stop: 07/03/24 10:32 Last Admin: 07/03/24 11:08 Dose: 10 mg Documented By: EJ Vital Signs Vital signs: Vital Signs - 8 hr 07/03/24 12:16 07/03/24 12:16 07/03/24 12:30 Pulse Rate 60 Respiratory Rate 24 Blood Pressure 112/70 114/73 Pulse Oximetry 99 07/03/24 12:30 07/03/24 13:00 07/03/24 13:00 Pulse Rate 57 L 67 Respiratory Rate 20 19 Blood Pressure 119/72 Pulse Oximetry 97 96 MDM - Headache Lab Data Labs: Point of Care Testing Test Results Negative Glucose POC 82 Urine Dip Bedside Urine Glucose Negative Bedside Urine Bilirubin - Negative Bedside Urine Ketone - Negative Urine Specific [place] 1.010 Bedside Urine Occult Blood - Negative Bedside Urine pH 6.0 Bedside Urine Protein - Negative Bedside Urine Urobilinogen - Negative Bedside Urine Nitrite - Negative Bedside Urine Leukocytes - Negative Esterase [facility] Narrative Medical decision making narrative: 28-year-old female with history of recurrent headaches no longer taking Triptan medications, takes SSRI medication, chart history of cervical cranial thoracic somatic dysfunction, now with headache refractory to [id number] medications. Some shakiness, no known withdrawal from any medications, no new medications or interactions known. Afebrile, sirs screen negative. Nonfocal neuro exam. Consider abortive treatment. IV Compazine, Benadryl, dexamethasone, Toradol. Patient quite anxious appearing, fine tremor, non tonic-clonic shaking like activity. IV Ativan 1 mg also added. Headache much improved, requesting to go home, discharged home Discharge Plan Departure Patient Disposition: Home Clinical Impression: Migraine headache Activity Restrictions/Additional Instructions: Reglan headache, not responsive to [id number] analgesic medications. Previously you had been on Triptan medications with her helpful, no longer taking this due to possible drug interac your headaches significantly improved. Treated with IV medications Compazine Toradol Decadron Ativan, and subsequently significantly improved. You would like to go home. Follow up with your regular doctor on Saturday. Return earlier to this/nearest emergency department for any change worsening symptoms or any concerns Prescriptions: No Action rizatriptan 10 mg tablet See Rx Instructions PO .COMPLEX Qty: 10 5RF Rx Instructions: take 1 tab at onset of headache; if no relief may repeat 1 tab after at least 2 hrs; max = 3 tabs/24 hr PO albuterol sulfate 90 mcg/actuation HFA aerosol inhaler 2 inhalation INHALATION Q4-6H PRN (Reason: cough/asthma) Qty: 8.5 0RF Rx Instructions: subst on formulary okay, please disp with spacer and training ondansetron 4 mg tablet,disintegrating 4 mg PO TID-QID PRN (Reason: nausea and vomiting) Qty: 10 0RF ondansetron 4 mg tablet,disintegrating 4 mg PO Q6H PRN (Reason: nausea and vomiting) Qty: 20 0RF pantoprazole [Protonix] 40 mg tablet,delayed release (DR/EC) 40 mg PO DAILY Qty: 30 0RF prednisone 20 mg tablet 20 mg PO DAILY Qty: 5 0RF albuterol sulfate 90 mcg/actuation HFA aerosol inhaler 2 puff inhalation BID Qty: 8.5 1RF Rx Instructions: Please dispense with spacer and instructions Stand Alone Forms: Patient Portal/API/Survey
[2024-07-03] MEDS: LORazepam 2 MG/ML INJ 1 MG IV (11:07)
[2024-07-03] MEDS: KETOROLAC 30 MG/ML VIAL 15 MG IV (11:07)
[2024-07-03] MEDS: PROCHLORPERAZINE 10 MG/2 ML VIAL IV (11:08)
[2024-07-03] MEDS: DEXAMETHASONE 10 MG/ML VIAL IV (11:10)
[2024-07-03] MEDS: SODIUM CHLORIDE 0.9% 1,000 ML 1000 ML IV (11:11)
== END 2024-07-03 14:15 | disposition home or self-care (01) ==
PROVIDERS: Emergency Provider Emergency Medicine
DX: G43.909 Migraine, unspecified, not intractable, without status migrainosus (principal)
CPT/HCPCS: 36415; 81003; 81025; 82962; 96361; 96374; 96375; 99284; J0780; J1100; J1885; J2060

== ENCOUNTER 2025-04-27 13:06 | Emergency (ER) | payer OTHER, MEDICAID, SELFPAY ==
[2025-04-27] VITALS (10 sets, daily range): BP systolic 105–141; BP diastolic 74–78; PULSE 57–96; RESP 13–37; TEMP 37; O2SAT 95–98; BMI 31.1
--- NOTE | 2025-04-27 13:24 | ED_ITS ---
HPI - Seizure General Chief Complaint: Fever Stated Complaint: seizure x3 today Time Seen by Provider: 04/27/25 13:24 History of Present Illness HPI Narrative: Patient is a 29-year-old female history of migraines and seizures not on any antiepileptics comes into the ED from home for evaluation of complaints. She states that she has been feeling congested has been having a typical migraine headaches associated with the right side denies any new symptoms, however she states that she was told that she was having a ?grand mal seizure 3 times today. At time of my evaluation no seizure-like activity she is just complaining of her typical migraine headache. States that she has an appointment with a neurologist soon. She denies any other symptoms such as chest pain shortness of breath abdominal pain or any other GI/ symptoms at this time. Related Data Previous Rx's ?Medication ?Instructions ?Recorded albuterol sulfate 90 mcg/actuation 2 inhalation inhala tion Q4-6H PRN 10/21/18 aerosol inhaler cough/asthma #8.5 grams ondansetron 4 mg disintegrating 4 mg PO TID-QID PRN na usea and 03/10/21 tablet vomiting #10 tabs rizatriptan 10 mg tablet See Rx Instructions PO .COMP JAMES 03/31/21 #10 tabs ondansetron 4 mg disintegrating 4 mg PO Q6H PRN nausea and 07/18/21 tablet vomiting #20 tabs pantoprazole 40 mg tablet,delayed 40 mg PO DAILY #30 t abs 07/18/21 release (Protonix) albuterol sulfate 90 mcg/actuation 2 puff inhalation B ID #8.5 grams 09/22/21 aerosol inhaler prednisone 20 mg tablet 20 mg PO DAILY #5 tabs 09/22 txomicrjae-tktskizzeplqe-zmbqaoek 1 tab PO Q6H PRN judd n 1 week #28 04/27/25 50 mg-325 mg-40 mg tablet tabs Allergies Allergy/AdvReac Type Severity Reaction Status Date / Time lavender (Lavandula Allergy Severe Swelling Verified 04/27/25 13:18 angustifolia) of Lip/Tongue/Throat amoxicillin Allergy Verified 04/27/25 13:18 aspirin Allergy Verified 04/27/25 13:18 diphenhydramine (From Allergy Verified 04/27/25 13:18 Benadryl) Penicillins Allergy Verified 04/27/25 13:18 sumatriptan (From Imitrex) Allergy Verified 04/27/25 13:18 Review of Systems Review of Systems Narrative: General: Denies fever, chills, weight loss HEENT: Positive headache, denies eye drainage, eye irritation, head trauma, sore throat, voice change Cardiovascular: Denies any chest pain, palpitations, tachycardia Respiratory: Denies any shortness of breath, cough, wheeze, stridor GI/: Denies any abdominal pain, nausea, vomiting, diarrhea, bright red blood per rectum, melanotic stools, urinary frequency, urinary retention, dysuria, hematuria MSK: Positive myalgias Denies any joint pain, swelling Skin: Denies any rashes, lesions, discoloration Neuro: Positive seizures Denies any headache, lightheadedness, dizziness, fainting, weakness Psych: Denies SI/HI Patient History Medical History Anxiety with depression (~2015) Asthma (~2015) Cervical somatic dysfunction Chlamydia (~2012) Chronic back pain (~2017) Cranial somatic dysfunction Hearing loss History of recurrent ear infection (~2017) IBS (irritable bowel syndrome) (~2018) Migraines (~2015) Mild asthma No pertinent family history Post-concussion headache Postconcussion syndrome PTSD (post-traumatic stress disorder) (~2015) Rash Right wrist pain Skin lesion Thoracic region somatic dysfunction Tinnitus (~2017) Weight gain Surgical History No pertinent past surgical history tobacco type: cigarettes, vaping and smokeless tobacco alcohol intake frequency: holidays/special occasions only Exam Narrative Exam Narrative: General: Cooperative, well-developed, not in acute distress HEENT: Normocephalic, atraumatic, PERRLA, normal sclera, eyelids normal Neck: Active full range of motion, atraumatic Chest: Normal to inspection, negative crepitus, no overlying erythema ecchymosis Respiratory: Normal respiratory effort, not in acute respiratory distress, clear to auscultation bilaterally negative cough, wheeze, tachypnea, rhonchi, rales Cardiology: Regular rate rhythm negative gallop, murmur, rubs GI/: No tenderness to palpation, soft, non rigid, normal to inspection, exam deferred MSK: Full active range of motion in all 4 extremities, atraumatic, no tenderness to palpation of any bony prominences Skin: No rashes or lesions noted Neuro: Alert awake oriented x3, moves all 4 extremities spontaneously, cranial nerves intact, able to answer all questions appropriately follows commands appropriately Psych: Cooperative, negative suicidal or homicidal ideations Initial Vital Signs Initial Vital Signs: Vital Signs Temperature 98.6 F 04/27/25 13:13 Pulse Rate 74 04/27/25 13:13 Respiratory Rate 20 04/27/25 13:13 Blood Pressure 141/74 H 04/27/25 13:13 Pulse Oximetry 97 04/27/25 13:13 Oxygen Delivery Method Room Air 04/27/25 13:13 Course Orders Ordered: ED Orders 04/27/25 13:39 CT head/brain wo con Stat 04/27/25 13:54 CBC Auto Diff [Complete Blood Count AUTO DIFF] Stat CMP [Comprehensive Metabolic Panel] Stat Lipase Stat MAG [Magnesium] Stat Test Serum,Qual Stat 04/27/25 15:03 Respiratory Panel (Film Array) Stat Urinalysis and Microscopic Stat Discontinued Medications Dexamethasone (Dexamethasone 10 Mg/Ml Vial) 10 mg IV NOW ONE Stop: 04/27/25 13:28 Last Admin: 04/27/25 14:15 Dose: 10 mg Documented By: RAGHAV Diphenhydramine HCl (Diphenhydramine 50 Mg/Ml Vial) 25 mg IV NOW ONE Stop: 04/27/25 13:28 Last Admin: 04/27/25 14:33 Dose: Not Given Documented By: RAGHAV Sodium Chloride (Normal Saline 0.9%) 1,000 mls @ 1,000 mls/hr IV BOLUS ONE Stop: 04/27/25 14:26 Last Infusion: 04/27/25 15:47 Dose: Infused Documented By: Admin: 04/27/25 14:15 Dose: 1,000 mls/hr Documented By: RAGHAV Levetiracetam 1,000 mg/ Sodium (Chloride) 110 mls @ 440 mls/hr IV NOW ONE Stop: 04/27/25 13:28 Last Infusion: 04/27/25 14:48 Dose: Infused Documented By: Admin: 04/27/25 14:15 Dose: 440 mls/hr Documented By: RAGHAV Acetaminophen (Ofirmev) 1,000 mg in 100 mls @ 400 mls/hr IV NOW ONE Stop: 04/27/25 15:16 Last Infusion: 04/27/25 15:48 Dose: Infused Documented By: Admin: 04/27/25 15:14 Dose: 400 mls/hr Documented By: RAGHAV Metoclopramide HCl (Metoclopramide 10 Mg/2 Ml Inj) 10 mg IV NOW ONE Stop: 04/27/25 13:28 Last Admin: 04/27/25 14:33 Dose: Not Given Documented By: RAGHAV Morphine Sulfate (Morphine 4 Mg/Ml Inj) 4 mg IV NOW ONE Stop: 04/27/25 13:31 Last Admin: 04/27/25 14:15 Dose: 4 mg Documented By: RAGHAV Vital Signs Vital signs: Vital Signs - 8 hr 04/27/25 13:13 04/27/25 13:32 04/27/25 13:42 Temperature 98.6 F Pulse Rate 74 62 62 Respiratory Rate 20 15 Blood Pressure 141/74 H Pulse Oximetry 97 95 95 Oxygen Delivery Method Room Air 04/27/25 13:42 04/27/25 14:00 04/27/25 14:29 Temperature Pulse Rate 57 L 72 Respiratory Rate 13 21 Blood Pressure 105/74 Pulse Oximetry 95 97 Oxygen Delivery Method 04/27/25 14:29 04/27/25 14:30 Temperature Pulse Rate 65 Respiratory Rate 20 Blood Pressure 120/78 Pulse Oximetry 97 Oxygen Delivery Method MDM - Seizure Lab Data 04/27/25 13:54 04/27/25 13:54 Labs: Lab Results 04/27/25 04/27/25 Range/Units 13:54 15:03 WBC 11.0 (4.5-11.0) X10^3/uL RBC 4.62 (4.0-5.2) X10^6/uL Hgb 14.2 (12.0-16.0) g/dL Hct 40.6 (36-46) % MCV 88.0 (80-100) fL MCH 30.7 (26-34) PG MCHC 34.9 (30-36) % RDW 12.8 (11.6-14.8) % Plt Count 245 (150-400) X10^3/uL Neut % (Auto) 83.9 H (50-75) % Lymph % (Auto) 9.0 L (25-40) % [place] % (Auto) 5.1 (3-14) % Eos % (Auto) 1.1 L (2-4) % Baso % (Auto) 0.9 (0-2) % Neut # (Auto) 9300 H (3301-3763) /uL Lymph # (Auto) 1000 L (2603-1465) /uL [place] # (Auto) 600 (0-900) /uL Eos # (Auto) 100 (0-450) /uL Baso # (Auto) 100 (0-100) /uL Sodium 137 (137-145) mmol/L Potassium 3.8 (3.4-5.1) mmol/L Chloride 104 (98-107) mmol/L Carbon Dioxide 21 L (22-32) mmol/L BUN 6 L (7-17) mg/dL Creatinine 0.63 (0.52-1.04) mg/dL Estimated GFR > 60 (>60) mL/min BUN/Creatinine Ratio 9.5 (6-22) Glucose 107 H (70-99) mg/dL Calcium 9.4 (8.4-10.2) mg/dL Magnesium 2.0 (1.6-2.3) mg/dL Total Bilirubin 1.5 H (0.2-1.3) mg/dL AST 43 H (14-36) IU/L ALT 53 H (<35) IU/L Alkaline Phosphatase 64 (38-126) U/L Total Protein 8.0 (6.3-8.2) g/dL Albumin 5.0 (3.5-5.0) g/dL Globulin 3.0 (1.7-4.1) g/dL Albumin/Globulin Ratio 1.7 (1.0-2.8) Lipase 77 (23-300) U/L Serum , Qual Negative (Negative) Urine Color Yellow Urine Appearance Clear Urine pH 6.5 (4.5-8.0) Ur Specific [employer] <=1.005 (1.000-1.035) Urine Protein Negative (Negative) Urine Glucose (UA) Negative (Negative) g/dL Urine Ketones Trace H (NEGATIVE) Urine Occult Blood Negative (Negative) Urine Nitrate Negative (Negative) Urine Bilirubin Negative (NEGATIVE) Urine Urobilinogen 0.2 (0.2) E.U./dL Ur Leukocyte Esterase Negative (NEGATIVE) Urine RBC None seen (0-5/HPF) Urine WBC None seen (0-5/HPF) Ur Squamous Epith Cells 0-1 /hpf (0-5/HPF) Urine Bacteria None seen (None) Ur Culture Indicated? Cult not indicated Vol Urine Centrifuged 10ml (spun) MDM Narrative Medical decision making narrative: 29-year-old female with a history of migraines and seizures not on any antiepileptics come into the ED from home for evaluation of typical migraine headaches along with flu-like symptoms and possible seizures. States that she does have an appointment with a neurologist, she states that people around her noted that she was having ?grand mal seizure states she had 3 today, however she was never postictal. At my time of evaluation no seizure-like activity. She is just complaining of her typical right-sided migraine headache. However given patient stating history of seizures we will give g of Keppra at this time IV. Patient will also be given morphine and Decadron for the headache along with fluids. Patient had lab work imaging performed here in the emergency department. CT scan without any acute findings, lab work unremarkable. 1503: Patient re-evaluated improved symptoms but still stating she still has a headache, she states that she does not want any pain medication. She states that the thing that helps her the most is Tylenol therefore we will order IV over med at this time. Informed him that we are just waiting for the urine, she understands and will provide urine sample now. 1551: Patient re-evaluated, she states that her symptoms have improved, she states that she does not want any other additional medications states that she has is trying to ?not rely on it too much she states that she does have an appointment with the primary care and neurologist. I told her that I will send her home with a as needed migraine medication called Fioricet, risks benefits was discussed with the patient she verbalized understanding of this. She remains NIH of 0 no focal deficits Discharge Plan Departure Patient Disposition: Home Clinical Impression: Headache Activity Restrictions/Additional Instructions: Please follow up with Neurology and primary care need evaluation treatment of your symptoms Please read the discharge instructions sheet carefully and bring all papers to all doctor follow-up visits, as it may contain information that your doctor may want to see. Disease processes change and evolve, if your symptoms worsen or if you develop any new symptoms that are concerning to you please return for evaluation. Your evaluation today does not show any evidence of any life- threatening/serious illnesses requiring admission to the hospital or surgery. Please follow-up with your doctor for re-evaluation in approximately 1 day. Seek immediate medical attention for any worrisome symptoms. *If you do not have a primary care provider please contact the [facility] Resource line at [phone]. They will ask some questions about your medical history and help get you set up with a doctor in the community. Prescriptions: New hlvkhtqhpf-fklczcqowmjcq-imtm 50-325-40 mg tablet 1 tab PO Q6H PRN (Reason: pain) 7 Days Qty: 28 0RF No Action rizatriptan 10 mg tablet See Rx Instructions PO .COMPLEX Qty: 10 5RF Rx Instructions: take 1 tab at onset of headache; if no relief may repeat 1 tab after at least 2 hrs; max = 3 tabs/24 hr PO albuterol sulfate 90 mcg/actuation HFA aerosol inhaler 2 inhalation INHALATION Q4-6H PRN (Reason: cough/asthma) Qty: 8.5 0RF Rx Instructions: subst on formulary okay, please disp with spacer and training ondansetron 4 mg tablet,disintegrating 4 mg PO TID-QID PRN (Reason: nausea and vomiting) Qty: 10 0RF ondansetron 4 mg tablet,disintegrating 4 mg PO Q6H PRN (Reason: nausea and vomiting) Qty: 20 0RF pantoprazole [Protonix] 40 mg tablet,delayed release (DR/EC) 40 mg PO DAILY Qty: 30 0RF prednisone 20 mg tablet 20 mg PO DAILY Qty: 5 0RF albuterol sulfate 90 mcg/actuation HFA aerosol inhaler 2 puff inhalation BID Qty: 8.5 1RF Rx Instructions: Please dispense with spacer and instructions Stand Alone Forms: Patient Portal/API
--- NOTE | 2025-04-27 13:39 | DI.CT.S_ITS ---
PROCEDURE: CT HEAD/BRAIN WO CON INDICATIONS: possible seizures TECHNIQUE: Noncontrast 4.5 mm thick angled axial sections acquired from the foramen magnum to the vertex, with coronal and sagittal reformats. For radiation dose reduction, the following was used: automated exposure control, adjustment of mA and/or kV according to patient size. COMPARISON: [facility], CT, CT HEAD/BRAIN WO CON, 03/10/2021, 9:55. FINDINGS: Image quality: Diagnostic. CSF spaces: Basal cisterns are patent. No extra-axial fluid collections. Ventricles are normal in size and shape. Brain: No midline shift. No intracranial mass effect or hemorrhage. [place]- white matter interface is normal. Skull and face: Calvarium and visualized facial bones are intact, without suspicious lesions. Sinuses: There is vkiy-fj-nypxupap mucosal thickening within the ethmoid air cells. Oilq-ya-xlpuxaxy mucosal thickening within the left maxillary sinus is partially seen. IMPRESSION: No significant intracranial abnormality is seen. To the limits of this noncontrast study, no findings of intracranial masses or mass effect can be seen. Similar to the prior. Dictated by: Bean Piña M.D. on 04/27/2025 at 12:42 Approved by: Bean Piña M.D. on 04/27/2025 at 12:43
[2025-04-27 14:00] LABS: Add Manual Diff / Slide Review NO; Hematocrit 40.6 % (36-46); Hemoglobin 14.2 g/dL (12.0-16.0); Lymphocytes Absolute Auto 1000 /uL (1100-4500); Mean Corpuscular HGB Conc 34.9 % (30-36); Mean Corpuscular Hemoglobin 30.7 PG (26-34); Mean Corpuscular Volume 88.0 fL (80-100); Platelet Count 245 X10^3/uL (150-400)
[2025-04-27] MEDS: MORPHINE 4 MG/ML INJ IV (14:15)
[2025-04-27] MEDS: SODIUM CHLORIDE 0.9% 1,000 ML 1000 ML IV (14:15)
[2025-04-27 14:18] LABS: Pregnancy Test Serum,Qual Negative (Negative)
[2025-04-27 14:23] LABS: Alanine Aminotransferase 53 IU/L (<35); Albumin 5.0 g/dL (3.5-5.0); Albumin Globulin Ratio 1.7 (1.0-2.8); Alkaline Phosphatase 64 U/L (38-126); Blood Urea Nitrogen 6 mg/dL (7-17); Calcium 9.4 mg/dL (8.4-10.2); Carbon Dioxide 21 mmol/L (22-32); Chloride 104 mmol/L (98-107); Estimated Glomerular Filt Rate > 60 mL/min (>60); Globulin 3.0 g/dL (1.7-4.1); Glucose 107 mg/dL (70-99); HEMOLYSIS 24 (0-50); Lipase 77 U/L (23-300); Magnesium 2.0 mg/dL (1.6-2.3); Potassium 3.8 mmol/L (3.4-5.1); Sodium 137 mmol/L (137-145); Total Protein 8.0 g/dL (6.3-8.2)
[2025-04-27] MEDS: ACETAMINOPHEN IV 1,000 MG/100 ML VIAL 400 MG IV (15:14)
[2025-04-27 15:25] LABS: Appearance Urine UA CLEAR; Bilirubin Urine UA NEGATIVE (NEGATIVE); Color Urine UA YELLOW; Glucose Urine UA NEGATIVE (Negative); Ketones Urine UA TRACE (NEGATIVE); Leukocyte Esterase Urine UA NEGATIVE (NEGATIVE); Nitrite Urine UA NEGATIVE (Negative); Occult Blood Urine UA NEGATIVE (Negative); Protein Urine UA NEGATIVE (Negative); Specific Gravity Urine UA <=1.005 (1.000-1.035); Urobilinogen Urine UA 0.2 E.U./dL (0.2)
[2025-04-27 15:42] LABS: pH Urine UA 6.5 (4.5-8.0)
[2025-04-27 15:44] LABS: Culture Indicated Urine Cult Not Indicated
[2025-04-27 16:08] LABS: Coronavirus NL 63 Not Detected (Not Detect); SARS- CoV-2 Not Detected (Not Detecte)
== END 2025-04-27 16:37 | disposition home or self-care (01) ==
PROVIDERS: Emergency Provider Student in an Organized Health Care Education/Training Program
DX: R51.9 Headache, unspecified (principal)
CPT/HCPCS: 36415; 70450; 80053; 81001; 83690; 83735; 84703; 85025; 87633; 96361; 96365; 96367; 96375; 99284; J0131; J1100; J1953; J2270

== ENCOUNTER 2025-06-15 18:26 | Emergency (ER) | payer OTHER, MEDICAID, SELFPAY ==
[2025-06-15] VITALS (10 sets, daily range): BP systolic 96–119; BP diastolic 58–69; PULSE 62–81; RESP 13–28; TEMP 36.7; O2SAT 94–97; BMI 33.5
--- NOTE | 2025-06-15 18:36 | ED_ITS ---
HPI - Abdominal Pain General Chief Complaint: Seizure Stated Complaint: seizure Time Seen by Provider: 06/15/25 18:29 History of Present Illness HPI narrative: Patient brought in by family private vehicle for bright red per rectum rectal bleeding that started today. Has lower abdominal pain. Never had this problem before. No vaginal bleeding. Patient not on any blood thinners. 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 Has been taking her Keppra. Had a seizure in the car EN route here. Patient is awake alert answering appropriately at this time has tremors. Denies any injury from the seizure. No tongue biting. Patient allergic to penicillins. Related Data Previous Rx's ?Medication ?Instructions ?Recorded albuterol sulfate 90 mcg/actuation 2 inhalation inhala tion Q4-6H PRN 10/21/18 aerosol inhaler cough/asthma #8.5 grams ondansetron 4 mg disintegrating 4 mg PO TID-QID PRN na usea and 03/10/21 tablet vomiting #10 tabs rizatriptan 10 mg tablet See Rx Instructions PO .COMP JAMES 03/31/21 #10 tabs ondansetron 4 mg disintegrating 4 mg PO Q6H PRN nausea and 07/18/21 tablet vomiting #20 tabs pantoprazole 40 mg tablet,delayed 40 mg PO DAILY #30 t abs 07/18/21 release (Protonix) albuterol sulfate 90 mcg/actuation 2 puff inhalation B ID #8.5 grams 09/22/21 aerosol inhaler prednisone 20 mg tablet 20 mg PO DAILY #5 tabs 09/22 Allergies Allergy/AdvReac Type Severity Reaction Status Date / Time lavender (Lavandula Allergy Severe Swelling Verified 04/27/25 13:18 angustifolia) of Lip/Tongue/Throat amoxicillin Allergy Verified 04/27/25 13:18 aspirin Allergy Verified 04/27/25 13:18 diphenhydramine (From Allergy Verified 04/27/25 13:18 Benadryl) Penicillins Allergy Verified 04/27/25 13:18 sumatriptan (From Imitrex) Allergy Verified 04/27/25 13:18 Review of Systems Review of Systems Narrative: GENERAL: Negative chills, fatigue, malaise, fever, sweats. HEENT: Negative sinus pain, ear pain, sore throat RESPIRATORY: Negative dyspnea, cough CARDIOVASCULAR: Negative chest pain, palpitations GASTROINTESTINAL: Positive rectal bleed, vomiting, nausea, abdominal pain : Negative dysuria, frequency, hematuria MUSCULOSKELETAL: Negative muscle or bony pain SKIN: Negative rash, skin lesions NEUROLOGIC: Negative weakness, numbness, positive seizure ROS Unobtainable: All systems reviewed & are unremarkable except as noted in HPI and below Patient History Medical History Anxiety with depression (~2015) Asthma (~2015) Cervical somatic dysfunction Chlamydia (~2012) Chronic back pain (~2017) Cranial somatic dysfunction Hearing loss History of recurrent ear infection (~2016) IBS (irritable bowel syndrome) (~2017) Migraines (~2015) Mild asthma No pertinent family history Post-concussion headache Postconcussion syndrome PTSD (post-traumatic stress disorder) (~2015) Rash Right wrist pain Skin lesion Thoracic region somatic dysfunction Tinnitus (~2017) Weight gain Surgical History No pertinent past surgical history tobacco type: cigarettes, vaping and smokeless tobacco alcohol intake frequency: holidays/special occasions only Exam Narrative Exam Narrative: GENERAL: in no distress, not toxic not dyspneic HEAD: Normocephalic. EYES: Pupils equal round ENT: Mucous membranes moist. NECK: Trachea midline. CARDIOVASCULAR: Regular rate and rhythm RESPIRATORY: Clear to auscultation. Breath sounds equal bilaterally. No wheezes, rales, or rhonchi. GASTROINTESTINAL: Abdomen soft, mild suprapubic tenderness no CVA tenderness no peritoneal signs no guarding no rebound. Bowel sounds are present. BACK: No flank tenderness. EXTREMITIES: No gross deformities. NEURO: AOx4. Clear speech, diffuse bilateral arms and legs tremors. SKIN: Warm and dry PSYCH: Patient is anxious, is cooperative Initial Vital Signs Initial Vital Signs: Vital Signs Temperature 98.1 F 06/15/25 18:36 Pulse Rate 78 06/15/25 18:36 Respiratory Rate 28 H 06/15/25 18:36 Blood Pressure 119/69 06/15/25 18:36 Pulse Oximetry 97 06/15/25 18:36 Oxygen Delivery Method Room Air 06/15/25 18:36 Course Orders Ordered: Discontinued Medications Sodium Chloride (Normal Saline 0.9%) 1,000 mls @ 1,000 mls/hr IV BOLUS ONE Stop: 06/15/25 19:34 Last Infusion: 06/15/25 19:16 Dose: Infused Documented By: Admin: 06/15/25 18:40 Dose: 1,000 mls/hr Documented By: MARIAN Lorazepam (Lorazepam 2 Mg/Ml Inj) 1 mg IV NOW ONE Stop: 06/15/25 18:33 Last Admin: 06/15/25 18:39 Dose: 1 mg Documented By: MARIAN Morphine Sulfate (Morphine 4 Mg/Ml Inj) 4 mg IV NOW ONE Stop: 06/15/25 20:15 Last Admin: 06/15/25 20:20 Dose: 4 mg Documented By: BRENT Ondansetron HCl (Ondansetron 4 Mg/2 Ml Inj) 4 mg IV NOW ONE Stop: 06/15/25 20:12 Last Admin: 06/15/25 20:20 Dose: 4 mg Documented By: BRENT Prochlorperazine (Prochlorperazine 10 Mg/2 Ml Vial) 5 mg IV NOW ONE Stop: 06/15/25 20:15 Last Admin: 06/15/25 20:31 Dose: 5 mg Documented By: BRENT Vital Signs Vital signs: Vital Signs - 8 hr 06/15/25 18:36 06/15/25 18:38 06/15/25 19:00 Temperature 98.1 F Pulse Rate 78 71 Respiratory Rate 28 H 22 Blood Pressure 119/69 109/64 Pulse Oximetry 97 97 Oxygen Delivery Method Room Air 06/15/25 19:00 06/15/25 19:30 06/15/25 20:00 Temperature Pulse Rate 67 81 65 Respiratory Rate 13 19 21 Blood Pressure Pulse Oximetry 96 96 97 Oxygen Delivery Method 06/15/25 20:30 06/15/25 20:31 06/15/25 20:36 Temperature Pulse Rate 79 76 Respiratory Rate 21 Blood Pressure 109/64 116/62 Pulse Oximetry 97 Oxygen Delivery Method 06/15/25 20:36 06/15/25 21:00 06/15/25 21:00 Temperature Pulse Rate 74 66 Respiratory Rate 19 16 Blood Pressure 96/58 L Pulse Oximetry 97 94 Oxygen Delivery Method MDM - Abdominal Pain Lab Data 06/15/25 18:34 06/15/25 18:34 Labs: Lab Results 06/15/25 Range/Units 18:34 WBC 7.3 (4.5-11.0) X10^3/uL RBC 4.86 (4.0-5.2) X10^6/uL Hgb 15.0 (12.0-16.0) g/dL Hct 42.3 (36-46) % MCV 86.9 (80-100) fL MCH 30.8 (26-34) PG MCHC 35.4 (30-36) % RDW 12.6 (11.6-14.8) % Plt Count 284 (150-400) X10^3/uL Neut % (Auto) 52.8 (50-75) % Lymph % (Auto) 36.6 (25-40) % Gila % (Auto) 6.9 (3-14) % Eos % (Auto) 2.9 (2-4) % Baso % (Auto) 0.8 (0-2) % Neut # (Auto) 3900 (4242-2937) /uL Lymph # (Auto) 2700 (7110-7699) /uL Gila # (Auto) 500 (0-900) /uL Eos # (Auto) 200 (0-450) /uL Baso # (Auto) 100 (0-100) /uL PT 12.3 (9.4-12.5) SECONDS INR 1.1 (0.9-1.3) APTT 29 (25.1-36.5) SECONDS Sodium 139 (137-145) mmol/L Potassium 3.9 (3.4-5.1) mmol/L Chloride 105 (98-107) mmol/L Carbon Dioxide 19 L (22-32) mmol/L BUN 7 (7-17) mg/dL Creatinine 0.76 (0.52-1.04) mg/dL Estimated GFR > 60 (>60) mL/min BUN/Creatinine Ratio 9.2 (6-22) Glucose 99 (70-99) mg/dL Calcium 9.6 (8.4-10.2) mg/dL Total Bilirubin 1.3 (0.2-1.3) mg/dL AST 32 (14-36) IU/L ALT 42 H (<35) IU/L Alkaline Phosphatase 53 (38-126) U/L Total Protein 8.2 (6.3-8.2) g/dL Albumin 5.2 H (3.5-5.0) g/dL Globulin 3.0 (1.7-4.1) g/dL Albumin/Globulin Ratio 1.7 (1.0-2.8) HCG, Quant < 2.39 mIU/mL Serum , Qual Negative (Negative) Blood Type A Positive Antibody Screen Negative Point of care testing: Point of Care Testing Glucose POC [address] scan - abdomen/pelvis: Radiologist's Impression: [address] [address] [address] Scan Report Signed Patient: Sarah Kumar MR#: [id number] : 1995 Acct:[id number] Age/Sex: 29 / F Date of Service: 06/15/25 Loc: ED Accession Number: [id number] Procedure: CT abdomen pelvis w con Ordering Provider: Alirio Marcial MD PROCEDURE: CT ABDOMEN PELVIS W CON INDICATIONS: Lower abdominal pain TECHNIQUE: After the administration of intravenous contrast, axial sections acquired from the lung bases to the pubic symphysis. Coronal and sagittal reformats were performed. For radiation dose reduction, the following was used: automated exposure control, adjustment of mA and/or kV according to patient size. COMPARISON: [facility], CT, CT ABDOMEN PELVIS W CON, 10/23/2018, 16:01. FINDINGS: Image quality: Diagnostic. Lower Chest: No significant findings. ABDOMEN: Liver: No solid mass. Liver measures 19.9 cm with steatosis. Gallbladder: No radiopaque gallstones or wall thickening. Biliary ducts: No biliary dilation. Pancreas: No ductal dilation. Spleen: Size is within normal limits. Adrenal Glands: No adrenal nodules. Kidneys and Ureters: No hydronephrosis. No solid mass. No complex renal cystic lesion which requires follow up. Stomach and Bowel: Normal colonic caliber, without significant wall thickening. Appendix is normal. Peritoneum: No abnormal intraperitoneal fluid. No free air. Ventral Wall: No significant ventral hernia. Abdominal Nodes: No retroperitoneal or mesenteric adenopathy by size criteria. Vessels: Aorta and inferior vena cava are normal in size. PELVIS: Pelvic Organs: IUD is present. Bladder: No bladder wall thickening, accounting for underdistention. Pelvic Nodes: No enlarged lymph nodes. Miscellaneous: No inguinal hernias are seen. Bones: No aggressive osseous abnormality. IMPRESSION: Hepatic steatosis. No acute intra-abdominal or pelvic process. Dictated by: Mamie Laird M.D. on 06/15/2025 at 20:13 Approved by: Mamie Liard M.D. on 06/15/2025 at 20:14 [facility] Narrative Medical decision making narrative: Patient brought in by [employer] private vehicle for bright red per rectum rectal bleeding that started today. Has lower abdominal pain. Never had this problem before. No vaginal bleeding. Patient not on any blood thinners. 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 Has been taking her Keppra. Had a seizure in the car EN route here. Patient is awake alert answering appropriately at this time has tremors. Denies any injury from the seizure. No tongue biting. Patient allergic to penicillins. MDM After history and exam, CBC CMP PT INR PTT type and screen test Ativan CT abdomen pelvis Differential considered: Includes but not limited to diverticulitis diverticulosis bowel obstruction colitis, breakthrough seizure Medical records reviewed: No recent visit for this complaint Lab Test results independently reviewed as above. Pertinent findings: WBC 7.3 hemoglobin 15 INR 1.1 sodium 139 potassium 3.9 BUN 7 creatinine 0.76 AST 32 ALT 42 negative EKG normal sinus rhythm rate 64 Imaging studies independently reviewed: CT abdomen pelvis no acute finding Consultations: None indicated at this time. Re-evaluations: 9:30 p.m.. Patient resting comfortably. No seizure no pain patient denies any more rectal bleeding during course of stay. No nausea or vomiting. [id number] at bedside. Reviewed results with him. Results are reassuring. Outpatient colonoscopy needs to be done. Referral for General surgery provided. They desire discharge home. No definitive source of pain at this time but laboratory studies and imaging studies reassuring. Return precautions reviewed and they desire discharge home. Discussion: Appropriate for discharge home. Exam is reassuring. Laboratory studies imaging reassuring. Return precautions reviewed patient. Patient states she tends to have seizure episodes with stress or anxiety. Return precautions reviewed. Outpatient colonoscopy appropriate. General surgery referral provided. They desire discharge home. IV contrast used for CT imaging. Diagnosis: Abdominal pain rectal bleeding Discharge Plan Departure Patient Disposition: Home Clinical Impression: Rectal bleeding Abdominal pain Qualifiers: Abdominal location: suprapubic Qualified Code(s): R10.24 - Suprapubic pain Instructions: DI for Abdominal Pain-Adult, DI for Rectal Bleeding Activity Restrictions/Additional Instructions: Your exam and laboratory studies and imaging studies are reassuring. At this time no definitive source for your rectal bleeding abdominal pain but results are reassuring at this time. No driving operating machinery tonight. Please call provided general surgery office/provider tomorrow for follow up to schedule outpatient colonoscopy. Return if worse if any questions or concerns. No new prescriptions are indicated at this time. Prescriptions: No Action rizatriptan 10 mg tablet See Rx Instructions PO .COMPLEX Qty: 10 5RF Rx Instructions: take 1 tab at onset of headache; if no relief may repeat 1 tab after at least 2 hrs; max = 3 tabs/24 hr PO albuterol sulfate 90 mcg/actuation HFA aerosol inhaler 2 inhalation INHALATION Q4-6H PRN (Reason: cough/asthma) Qty: 8.5 0RF Rx Instructions: subst on formulary okay, please disp with spacer and training ondansetron 4 mg tablet,disintegrating 4 mg PO TID-QID PRN (Reason: nausea and vomiting) Qty: 10 0RF ondansetron 4 mg tablet,disintegrating 4 mg PO Q6H PRN (Reason: nausea and vomiting) Qty: 20 0RF pantoprazole [Protonix] 40 mg tablet,delayed release (DR/EC) 40 mg PO DAILY Qty: 30 0RF prednisone 20 mg tablet 20 mg PO DAILY Qty: 5 0RF albuterol sulfate 90 mcg/actuation HFA aerosol inhaler 2 puff inhalation BID Qty: 8.5 1RF Rx Instructions: Please dispense with spacer and instructions Referrals: Rae Quiñonez MD [Physician, General Surgery] Stand Alone Forms: Patient Portal/API
[2025-06-15] MEDS: SODIUM CHLORIDE 0.9% 1,000 ML 1000 ML IV (18:40)
--- NOTE | 2025-06-15 18:45 | EKG_ITS ---
[address] [address] Test Date: 2025-06-15 Pat Name: Sarah Kumar Department: Room: Gender: Female [employer] Vice President: GINO : 1995 Requested By: Order Number: [id number] Reading MD: Nilesh Suresh MD Measurements Intervals [place] Rate: 64 P: 69 OR: 140 QRS: 79 QRSD: 78 T: 38 QT: 398 QTc: 410 Interpretive Statements Normal sinus rhythm with sinus arrhythmia Electronically Signed On 06-16-2025 6:34:56 PST by Nilesh Suresh MD
[2025-06-15 18:52] LABS: Add Manual Diff / Slide Review NO; Hematocrit 42.3 % (36-46); Hemoglobin 15.0 g/dL (12.0-16.0); INR 1.1 (0.9-1.3); Lymphocytes Absolute Auto 2700 /uL (1100-4500); Mean Corpuscular HGB Conc 35.4 % (30-36); Mean Corpuscular Hemoglobin 30.8 PG (26-34); Mean Corpuscular Volume 86.9 fL (80-100); Platelet Count 284 X10^3/uL (150-400); Prothrombin Time 12.3 SECONDS (9.4-12.5)
[2025-06-15 18:54] LABS: PTT Partial Thromboplastin Tim 29 SECONDS (25.1-36.5)
[2025-06-15 19:04] LABS: Alanine Aminotransferase 42 IU/L (<35); Albumin 5.2 g/dL (3.5-5.0); Albumin Globulin Ratio 1.7 (1.0-2.8); Alkaline Phosphatase 53 U/L (38-126); Blood Urea Nitrogen 7 mg/dL (7-17); Calcium 9.6 mg/dL (8.4-10.2); Carbon Dioxide 19 mmol/L (22-32); Chloride 105 mmol/L (98-107); Estimated Glomerular Filt Rate > 60 mL/min (>60); Globulin 3.0 g/dL (1.7-4.1); Glucose 99 mg/dL (70-99); HEMOLYSIS < 15 (0-50); Potassium 3.9 mmol/L (3.4-5.1); Sodium 139 mmol/L (137-145); Total Protein 8.2 g/dL (6.3-8.2)
[2025-06-15 19:13] LABS: Pregnancy Test Serum,Qual Negative (Negative)
[2025-06-15 19:21] LABS: HCG Quantitative /Beta subunit < 2.39 mIU/mL
[2025-06-15] MEDS: MORPHINE 4 MG/ML INJ IV (20:20)
[2025-06-15] MEDS: ONDANSETRON 4 MG/2 ML INJ IV (20:20)
[2025-06-15] MEDS: PROCHLORPERAZINE 10 MG/2 ML VIAL 5 MG IV (20:31)
== END 2025-06-15 21:57 | disposition home or self-care (01) ==
PROVIDERS: Emergency Provider Emergency Medicine
DX: K62.5 Hemorrhage of anus and rectum (principal); R10.24 Suprapubic pain; G40.909 Epilepsy, unspecified, not intractable, without status epilepticus
CPT/HCPCS: 36415; 74177; 80053; 82962; 84702; 84703; 85025; 85610; 85730; 86850; 86900; 86901; 93005; 96361; 96374; 96375; 99284; J0780; J2060; J2272; J2405; J7030; Q9967